=== PATIENT | female | born 2000 | race Caucasian/White ===

== ENCOUNTER 2020-07-21 15:37 | Emergency (ER) | payer OTHER, SELFPAY ==
[2020-07-21 15:42] VITALS: BP 140/79; PULSE 128; RESP 18; TEMP 36.9; O2SAT 100; BMI 37.4
[2020-07-21 17:37] VITALS: BP 124/69; PULSE 104; RESP 16; O2SAT 99
--- NOTE | 2020-07-21 18:44 | ED.ABDPAIN ---
HPI - Abdominal Pain General Chief Complaint: Abdominal Pain Stated Complaint: abdopminal pain Time Seen by Provider: 07/21/20 18:43 Source: patient Mode of arrival: ambulatory Limitations: no limitations History of Present Illness HPI narrative: Patient is a 20-year-old female with past medical history of uterine polyps who is scheduled to have surgery August 18 complaining of a right-sided pelvic and lower abdominal pain for 18 hours. Is able to eat and drink though at a reduced amount. Denies fevers, nausea vomiting diarrhea. States she is supposed to be getting her period starting tomorrow. States it does not feel like typical cramps, denies any unusual vaginal discharge or bleeding. She said she called her OBGYN and they advised she come to the emergency room. Related Data Date of Last Menstrual Period: 06/21/20 Home Medications Medication Instructions Recorded Confirmed vit,[id number] 1 tab PO DAILY 07/21/20 07/21/20 [PreTAB] Allergies Allergy/AdvReac Type Severity Reaction Status Date / Time amoxicillin [AMOXICILLIN] Allergy Unknown RASH Unverified 04/01/20 16:38 Review of Systems Review of Systems Yes all other systems are reviewed and are negative Physical Exam Vital Signs: Vital Signs: Last Vital Signs Temp 98.5 F 07/21/20 15:42 Pulse 106 H 07/21/20 19:47 Resp 16 07/21/20 19:47 BP 115/78 07/21/20 19:47 Pulse Ox 98 07/21/20 19:47 Body Mass Index 37.4 Const: General: cooperative, healthy appearing, comfortable, no acute distress and well developed Orientation/consciousness: patient oriented x3 Limitations: no limitations HENMT: Head: Yes normal to inspection Eyes: General: appearance normal, both eyes and all related structures Neck: Neck: Yes normal visual inspection and Yes full ROM Resp: Effort & Inspection: normal respiratory effort and able to speak in complete sentences Auscultation: clear to auscultation bilaterally Cardio: Rate: regular rate Rhythm: regular rhythm Heart sounds: normal S1 and S2 GI: Inspection: Yes normal to inspection Palpation (GI): Soft to palpation and Tenderness to palpation present (GI) in the RLQ and suprapubicly Skin: General skin exam: no rashes or lesions noted Neuro: General: patient oriented x3 Extrem: General: Yes normal to inspection Course Course Course Narrative: 20-year-old female past medical history of uterine polyp scheduled for surgery in early August presents with 1 day of right-sided lower abdominal pain, does not appear to be infectious, patient's vital signs are stable, heart rate has come down to 90, patient has remained afebrile. Upon my exam, patient appears rather comfortable, minimally tender in RLQ. Will get labs, UA, preg test and US pelvis including doppler to r/o ovarian torsion although this is less likely as not reflective of pain level. 8:40pm labs unremarkable, ultrasound shows no torsion, patient does have to cyst on her right ovary, waiting for urine sample. Pt complaining of increased pain. will give toradol 9pm UA negative, negative for . Will discharge home. Pain likely secondary to ovarian cysts. Patient's pain is controlled with Toradol. MDM - Abdominal Pain Lab Data Result diagrams: 07/21/20 19:19 07/21/20 19:19 Labs: Lab Results 07/21/20 07/21/20 07/21/20 Range/Units 19:19 19:19 19:19 WBC 13.6 H (4.8-10.8) X10*3/uL RBC 4.56 (4.20-5.50) X10*6/uL Hgb 13.4 (12.0-16.0) g/dl Hct 39.2 (37-47) % MCV 86.0 (80-98) fL MCH 29.4 (27.0-33.0) pg MCHC 34.2 (31.0-35.0) g/dl RDW 11.9 (11.0-16.0) % Plt Count 295 (160-400) X10*3/uL MPV 9.3 L (9.4-12.3) fL Immature Gran % (Auto) 0.1 (0.0-0.4) % Neut % (Auto) 77.7 H (45-73) % Lymph % (Auto) 17.2 L (20-40) % [place]quette % (Auto) 4.8 (2-11) % Eos % (Auto) 0.1 (0-4) % Baso % (Auto) 0.1 (0-2) % Lymph # (Auto) 2.3 (1.2-4.9) X10*3/uL [place] # (Auto) 0.7 (0.1-1.2) X10*3/uL Eos # (Auto) 0.0 (0.0-0.4) X10*3/uL Baso # (Auto) 0.0 (0.0-0.2) X10*3/uL Abs Immat Gran (auto) 0.02 (0.00-0.03) X10*3/uL Absolute Neuts (auto) 10.6 H (2.0-8.3) X10*3/uL Absolute Nucleated RBC 0.000 (0.0-0.012) X10*3/uL Nucleated RBC % (auto) 0.0 (0.0-0.2) /100WBC Hold Blue Top SEE NOTE Sodium 139 (135-145) mmol/L Potassium 3.5 (3.3-5.1) mmol/l Chloride 103 (96-108) mmol/L Carbon Dioxide 26 (22-29) mmol/L Anion Gap 14 (12-20) BUN 5 L (9-16) mg/dL Creatinine 0.71 (0.5-1.4) mg/dL Estim Creat Clear Calc 126.7 Estimated GFR > 60 Random Glucose 100 (60-115) mg/dL Calcium 8.5 (8.4-10.2) mg/dL Total Bilirubin 0.6 (0.0-1.0) mg/dL AST 12 (5-31) U/L ALT 13 (0-31) U/L Alkaline Phosphatase 66 (39-117) U/L Total Protein 7.1 (6.5-8.0) g/dL Albumin 4.2 (3.5-5.0) g/dL Urine Color Urine Appearance Urine pH (5.0-8.0) Ur Specific [place] (1.005-1.025) Urine Protein (NEG-TRACE) MG/DL Urine Glucose (UA) (NEG) MG/DL Urine Ketones (NEG) MG/DL Urine Blood (NEG) Urine Nitrite (NEG) Ur Leukocyte Esterase (NEG) Urine RBC (0) /HPF Urine WBC (0-4) /HPF Ur Squamous Epith Cells /LPF Urine Bacteria /LPF Urine Test (NEGATIVE) 07/21/20 Range/Units 20:36 WBC (4.8-10.8) X10*3/uL RBC (4.20-5.50) X10*6/uL Hgb (12.0-16.0) g/dl Hct (37-47) % MCV (80-98) fL MCH (27.0-33.0) pg MCHC (31.0-35.0) g/dl RDW (11.0-16.0) % Plt Count (160-400) X10*3/uL MPV (9.4-12.3) fL Immature Gran % (Auto) (0.0-0.4) % Neut % (Auto) (45-73) % Lymph % (Auto) (20-40) % Marquette % (Auto) (2-11) % Eos % (Auto) (0-4) % Baso % (Auto) (0-2) % Lymph # (Auto) (1.2-4.9) X10*3/uL [place] # (Auto) (0.1-1.2) X10*3/uL Eos # (Auto) (0.0-0.4) X10*3/uL Baso # (Auto) (0.0-0.2) X10*3/uL Abs Immat Gran (auto) (0.00-0.03) X10*3/uL Absolute Neuts (auto) (2.0-8.3) X10*3/uL Absolute Nucleated RBC (0.0-0.012) X10*3/uL Nucleated RBC % (auto) (0.0-0.2) /100WBC Hold Blue Top Sodium (135-145) mmol/L Potassium (3.3-5.1) mmol/l Chloride (96-108) mmol/L Carbon Dioxide (22-29) mmol/L Anion Gap (12-20) BUN (9-16) mg/dL Creatinine (0.5-1.4) mg/dL Estim Creat Clear Calc Estimated GFR Random Glucose (60-115) mg/dL Calcium (8.4-10.2) mg/dL Total Bilirubin (0.0-1.0) mg/dL AST (5-31) U/L ALT (0-31) U/L Alkaline Phosphatase (39-117) U/L Total Protein (6.5-8.0) g/dL Albumin (3.5-5.0) g/dL Urine Color YELLOW Urine Appearance CLEAR Urine pH 6.0 (5.0-8.0) Ur Specific [place] 1.025 (1.005-1.025) Urine Protein NEG (NEG-TRACE) MG/DL Urine Glucose (UA) NEG (NEG) MG/DL Urine Ketones 40 (NEG) MG/DL Urine Blood TRACE (NEG) Urine Nitrite NEG (NEG) Ur Leukocyte Esterase NEG (NEG) Urine RBC 0-2 (0) /HPF Urine WBC 0 (0-4) /HPF Ur Squamous Epith Cells 1+ /LPF Urine Bacteria TRACE /LPF Urine Test NEGATIVE (NEGATIVE) Discharge Plan Discharge Prescriptions: No Action PreTAB 29-1 mg tablet 1 tab PO DAILY RF: 0 PMFSH Past Medical History Medical History (Updated 07/21/20 @ 18:50 by PRANAV Tena) Uterine polyp Date of Last Menstrual Period: 06/21/20 Social History Social History Alcohol intake: unknown Smoking Status: Unknown if ever smoked Use of substances other than those prescribed or required for medical reasons: Unknown Advance Directives: No Advance Directives Information Provided: Yes
--- NOTE | 2020-07-21 18:50 | US_ITS ---
EXAMINATION: ULTRASOUND PELVIC, COMPLETE CLINICAL INFORMATION: Right-sided pain COMPARISON: None. TECHNIQUE: Transvaginal: Used to better visualize pelvic structures Transabdominal: Not adequate visualization Spectral Doppler and color Doppler exam was utilized. LMP: 06/30/2020 FINDINGS: UTERUS: Unremarkable. Uterus is anteverted. Uterus measures 6.9 x 3.2 x 4.9 cm ADNEXA: Ovarian vascularity:Doppler demonstrates both arterial and venous vascular flow in the right and left ovary. No evidence of ovarian torsion. Right Ovary: There are 2 adjacent cysts or a bilobed cyst in the right adnexa. This measures 6.5 x 5.3 x 5.5 cm. Volume 99 mL. There is a small volume of low level echoes within these cysts. Solid ovarian tissue evident of the right ovary which is unremarkable. Left Ovary: Unremarkable. Left ovary measures 1.4 x 1.5 x 2.8 cm. Volume 3 mL Cul-de-sac: There is a small volume of fluid in the cul-de-sac. US/US pelvic complete IMPRESSION: 1. Large bilobed cyst or 2 adjacent cysts in the right adnexa. These may be ovarian and/or paraovarian. These are mildly complex containing low-level echoes. 2. No evidence of ovarian torsion. 3. Small volume of fluid in the cul-de-sac.
--- NOTE | 2020-07-21 18:50 | US_ITS ---
EXAMINATION: ULTRASOUND PELVIC, COMPLETE CLINICAL INFORMATION: Right-sided pain COMPARISON: None. TECHNIQUE: Transvaginal: Used to better visualize pelvic structures Transabdominal: Not adequate visualization Spectral Doppler and color Doppler exam was utilized. LMP: 06/30/2020 FINDINGS: UTERUS: Unremarkable. Uterus is anteverted. Uterus measures 6.9 x 3.2 x 4.9 cm ADNEXA: Ovarian vascularity:Doppler demonstrates both arterial and venous vascular flow in the right and left ovary. No evidence of ovarian torsion. Right Ovary: There are 2 adjacent cysts or a bilobed cyst in the right adnexa. This measures 6.5 x 5.3 x 5.5 cm. Volume 99 mL. There is a small volume of low level echoes within these cysts. Solid ovarian tissue evident of the right ovary which is unremarkable. Left Ovary: Unremarkable. Left ovary measures 1.4 x 1.5 x 2.8 cm. Volume 3 mL Cul-de-sac: There is a small volume of fluid in the cul-de-sac. US/US pelvic ovarian doppler IMPRESSION: 1. Large bilobed cyst or 2 adjacent cysts in the right adnexa. These may be ovarian and/or paraovarian. These are mildly complex containing low-level echoes. 2. No evidence of ovarian torsion. 3. Small volume of fluid in the cul-de-sac.
[2020-07-21 19:00] VITALS: PULSE 90
--- NOTE | 2020-07-21 19:17 | US_ITS ---
EXAMINATION: ULTRASOUND PELVIC, COMPLETE CLINICAL INFORMATION: Right-sided pain COMPARISON: None. TECHNIQUE: Transvaginal: Used to better visualize pelvic structures Transabdominal: Not adequate visualization Spectral Doppler and color Doppler exam was utilized. LMP: 06/30/2020 FINDINGS: UTERUS: Unremarkable. Uterus is anteverted. Uterus measures 6.9 x 3.2 x 4.9 cm ADNEXA: Ovarian vascularity:Doppler demonstrates both arterial and venous vascular flow in the right and left ovary. No evidence of ovarian torsion. Right Ovary: There are 2 adjacent cysts or a bilobed cyst in the right adnexa. This measures 6.5 x 5.3 x 5.5 cm. Volume 99 mL. There is a small volume of low level echoes within these cysts. Solid ovarian tissue evident of the right ovary which is unremarkable. Left Ovary: Unremarkable. Left ovary measures 1.4 x 1.5 x 2.8 cm. Volume 3 mL Cul-de-sac: There is a small volume of fluid in the cul-de-sac. US/US transvaginal IMPRESSION: 1. Large bilobed cyst or 2 adjacent cysts in the right adnexa. These may be ovarian and/or paraovarian. These are mildly complex containing low-level echoes. 2. No evidence of ovarian torsion. 3. Small volume of fluid in the cul-de-sac.
--- NOTE | 2020-07-21 19:21 | PC.NURSE ---
Pt found resting in bed at this time, CAOx4, speaking full sentences. Pt reports a history of polyps in her uterus, states she is scheduled for surgery in August. Pt reports pain starting @ 0200, increasing throughout the day, pt reporting 7/10 pain at present time. Pt denies taking anything OTC for the pain. IV established, labs obtained. Pt unable to provide urine sample at this time. Pt ambulating to U/S with a gilliam/steady gait.
[2020-07-21 19:28] LABS: MANUAL DIFF FLAG NO
[2020-07-21 19:30] LABS: Basophils Percent Auto 0.1 % (0-2); Eosinophils Percent Auto 0.1 % (0-4); Hematocrit 39.2 % (37-47); Hemoglobin 13.4 g/dl (12.0-16.0); Imm Gran Abs Auto 0.02 X10*3/uL (0.00-0.03); Imm Gran Pct Auto 0.1 % (0.0-0.4); Lymphocytes Absolute Auto 2.3 X10*3/uL (1.2-4.9); Lymphocytes Percent Auto 17.2 % (20-40); Mean Corpuscular HGB Conc 34.2 g/dl (31.0-35.0); Mean Corpuscular Hemoglobin 29.4 pg (27.0-33.0); Mean Platelet Volume 9.3 fL (9.4-12.3); Monocytes Absolute Auto 0.7 X10*3/uL (0.1-1.2); Monocytes Percent Auto 4.8 % (2-11); Neutrophils Absolute Auto 10.6 X10*3/uL (2.0-8.3); Neutrophils Percent Auto 77.7 % (45-73); Platelet Count 295 X10*3/uL (160-400); Red Blood Count 4.56 X10*6/uL (4.20-5.50); Red Cell Distribution Width 11.9 % (11.0-16.0); White Blood Count 13.6 X10*3/uL (4.8-10.8)
[2020-07-21 19:47] VITALS: BP 115/78; PULSE 106; RESP 16; O2SAT 98
--- NOTE | 2020-07-21 19:48 | PC.NURSE ---
Pt returns from U/S without incident. VSS. Awaiting U/S results, continue to monitor.
[2020-07-21 19:50] LABS: Alanine Aminotransferase 13 U/L (0-31); Albumin Level 4.2 g/dL (3.5-5.0); Alkaline Phosphatase 66 U/L (39-117); Anion Gap 14 (12-20); Aspartate Amino Transferase 12 U/L (5-31); Bilirubin Total 0.6 mg/dL (0.0-1.0); Blood Urea Nitrogen 5 mg/dL (9-16); Calcium 8.5 mg/dL (8.4-10.2); Carbon Dioxide 26 mmol/L (22-29); Chloride 103 mmol/L (96-108); Creatinine Clr Calc Pharmacy 126.7; Estimated Glomerular Filt Rate > 60; Glucose Random 100 mg/dL (60-115); Potassium 3.5 mmol/l (3.3-5.1); Sodium 139 mmol/L (135-145); Total Protein 7.1 g/dL (6.5-8.0)
--- NOTE | 2020-07-21 20:37 | PC.NURSE ---
UA obtained and sent.
[2020-07-21] MEDS: Ketorolac Tromethamine 15 MG/ML VIAL IM (20:48)
--- NOTE | 2020-07-21 20:49 | PC.NURSE ---
Pt medicate per MAR for 8/10 abdominal pain.
[2020-07-21 20:52] LABS: Glucose Urine UA NEG (NEG); Leukocyte Esterase Urine NEG (NEG); Nitrite Urine NEG (NEG); Specific Gravity - Urine 1.025 (1.005-1.025); Urine Blood TRACE (NEG); Urine Ketones 40 MG/DL (NEG); Urine Protein NEG (NEG-TRACE)
[2020-07-21 20:53] LABS: Appearance Urine CLEAR; Color Urine YELLOW
[2020-07-21 20:56] LABS: UPreg QC Valid YES; Urine Pregnancy NEGATIVE (NEGATIVE)
[2020-07-21 21:01] LABS: Bacteria Urine TRACE /LPF; RBC Urine 0-2 /HPF (0); Squamous Epithelial Cell Urine 1+ /LPF; WBC Urine 0 /HPF (0-4)
== END 2020-07-21 21:21 | disposition home or self-care (01) ==
PROVIDERS: Physician Assistant; Emergency Provider Internal Medicine
DX: R10.2 Pelvic and perineal pain (principal); R10.31 Right lower quadrant pain
CPT/HCPCS: 36415; 76830; 76856; 80053; 81001; 81025; 85025; 93975; 96372; 99284; J1885

== ENCOUNTER 2021-02-17 20:42 | Emergency (ER) | payer OTHER, SELFPAY ==
--- NOTE | ~2021-02-17 | CT_ITS ---
EXAMINATION: CT HEAD WITHOUT CONTRAST CLINICAL INFORMATION: Constant headache for weeks COMPARISON: None TECHNIQUE: Contiguous axial imaging was performed from the skull base to vertex without intravenous administration of contrast. This CT examination was performed using dose optimization techniques as appropriate, variously including the following: *Automated exposure control *Adjustment of mA and/or kV according to patient size (this includes techniques or standardized protocols for targeted exams where dose is matched to indication/reason for exam; i.e. extremities or head) *Use of iterative reconstruction technique DLP: 620 mGy-cm FINDINGS: There is no evidence of acute intracranial hemorrhage or territorial infarction. No abnormal mass effect or midline shift is seen. Marie to white matter differentiation is well preserved. No extra-axial fluid collections are identified. The ventricles are normal in size. There is no abnormal attenuation within the brain parenchyma. The osseous structures and soft tissues are normal. The mastoid air cells and visualized portions of the paranasal sinuses are well aerated. CT/CT head/brain wo con IMPRESSION: No acute intracranial pathology.
[2021-02-17 21:18] VITALS: BP 117/75; PULSE 101; RESP 19; TEMP 36.8; O2SAT 100; BMI 33.3
--- NOTE | 2021-02-17 23:21 | ED_ITS ---
HPI - Headache General Chief Complaint: Headache Stated Complaint: migraines Time Seen by Provider: 02/17/21 23:15 Source: patient Mode of arrival: ambulatory Limitations: no limitations History of Present Illness HPI Narrative: Patient comes emergency room complaining of a migraine headache that started approximately 4-5 weeks ago. Patient states the pain is constant in her forehead, nonradiating, patient complaining of nausea and occasional vomiting. Patient states she has been taking ibuprofen, Aleve, Excedrin, Tylenol, but nothing is working. Patient states that for last 4 weeks, the pain has not subsided. Patient states that sometimes when she drives she has blurry vision but self resolves. Last time she had her eyes checked for prescription glasses was a year ago. Patient denies any other neurological deficits Related Data Home Medications Medication Instructions Recorded Confirmed vits,calcium no.78-iron 1 tab PO DAILY 07/21/20 07/21/20 fumarate-folic acid 29 mg-1 mg tablet (PreTAB) Previous Rx's Medication Instructions Recorded ketorolac 10 mg tablet 10 mg PO BID PRN 5 Days #7 tab 02/18/21 metoclopramide HCl 5 mg tablet 5 mg PO DAILY PRN #7 tab 02/18/21 (Reglan) Allergies Allergy/AdvReac Type Severity Reaction Status Date / Time amoxicillin [AMOXICILLIN] Allergy Intermediate RASH Verified 02/17/21 21:17 Penicillins Allergy Intermediate Hives Verified 02/17/21 21:17 Review of Systems Review of Systems: Constitutional : No Weight loss, No Fever, No Chills, No Night Sweats, No Fatigue, No Malaise ENT/Mouth : No Hearing loss, No Ear Pain, No Nasal Congestion, No Sinus Pain, No Hoarseness, No sore throat, No Rhinorrhea, No Swallowing Difficulty Eyes: No Eye Pain, No Swelling, No Redness, No Foreign Body, No Discharge, occasional intermittent blurry vision while driving Cardiovascular : No Chest Pain, No SOB, No Dyspnea on Exertion, No Orthopnea, No Edema, No Palpitations Respiratory : No Cough, No Sputum, No Wheezing, No Smoke Exposure, No Dyspnea Gastrointestinal : Complaining of nausea and occasional vomiting No Diarrhea, No Constipation, No abdominal Pain, No Hematochezia, No Melena Genitourinary : no irregular bleeding, No Dysuria, No Urinary Frequency, No Hematuria, No Urinary Incontinence, No Urgency, No Flank Pain, No Urinary Flow Changes, No Hesitancy Musculoskeletal : No joint pain, No Myalgias, No Joint Swelling Skin : No Skin Lesions, No rash Neuro : No Weakness, No Numbness, No Paresthesias, No Loss of Consciousness, No Dizziness, constant migraine headache for over a month Psych : No Anxiety/Panic, No Depression, No SI/HI/AH/VH, No Social Issues, Heme/Lymph: No Bruising, No Bleeding,No Lymphadenopathy Endocrine : No Polyuria, No Polydipsia, No Temperature Intolerance [facility] Past Medical History Medical History (Updated 02/18/21 @ 01:38 by Eloise Curiel MD) Migraines Uterine polyp Social History Social History Alcohol intake: unknown Advance Directives: No Advance Directives Information Provided: No Patient : No Physical Exam Vital Signs: Vital Signs: Last Vital Signs Temp 98.3 F 02/17/21 21:18 Pulse 101 H 02/17/21 21:18 Resp 19 02/17/21 21:18 BP 117/75 02/17/21 21:18 Pulse Ox 100 02/17/21 21:18 Body Mass Index 33.3 Const: Other: Appearance: Alert. Oriented X3. No acute distress. Eyes: Pupils equal, round and reactive to light. No photophobia ENT: Pharynx normal. Neck: Normal inspection. Neck supple. No lymph nodes noted. No crepitus CVS: Normal heart rate and rhythm. Pulses normal. Normal S1 and S2 Respiratory: No respiratory distress. Breath sounds normal. No Wheezing. No rales Abdomen: Soft and nontender. No rigidity. No distention. good BS x4 Skin: Skin warm and dry. Normal skin color. Normal skin turgor. Extremities: No lower extremity edema. No Lacerations. No Rash Neuro: Oriented X 3. No motor deficit. No sensory deficit. Moving all extermities. No slurred speech. Course Course Course Narrative: Patient states that she feels much better now, headache nearly gone, no nausea vomiting. Patient received 1 dose of Toradol, Benadryl, Reglan and a L of normal saline MDM - Headache Lab Data Labs: Lab Results 02/17/21 Range/Units 23:27 Urine Test NEGATIVE (NEGATIVE) Imaging Data CT scan - head: Radiologist's impression: There is no evidence of acute intracranial hemorrhage or territorial infarction. No abnormal mass effect or midline shift is seen. Marie to white matter differentiation is well preserved. No extra-axial fluid collections are identified. The ventricles are normal in size. There is no abnormal attenuation within the brain parenchyma. The osseous structures and soft tissues are normal. The mastoid air cells and visualized portions of the paranasal sinuses are well aerated. ? CT/CT head/brain wo con IMPRESSION: No acute intracranial pathology. Discharge Plan Discharge Clinical Impression: Migraine Qualifiers: Migraine type: unspecified Status migrainosus presence: without status migrainosus Intractability: not intractable Qualified Code(s): G43.909 - Migraine, unspecified, not intractable, without status migrainosus Patient Disposition: Home, Self-Care Instructions: Migraine Headache (ED) Additional Instructions: Please follow-up with your primary care physician tomorrow. If you have any worsening or new symptoms, please return to the emergency room or call 911 Prescriptions: New ketorolac 10 mg tablet 10 mg PO BID PRN (Reason: pain) 5 Days Qty: 7 RF: 0 metoclopramide HCl [Reglan] 5 mg tablet 5 mg PO DAILY PRN (Reason: nausea and vomiting) Qty: 7 RF: 0 No Action PreTAB 29-1 mg tablet 1 tab PO DAILY RF: 0
[2021-02-17 23:41] LABS: UPreg QC Valid YES; Urine Pregnancy NEGATIVE (NEGATIVE)
[2021-02-18] MEDS: 0.9 % Sodium Chloride 1,000 ML 999 ML IVCONT (00:50)
[2021-02-18] MEDS: diphenhydrAMINE HCL 50 MG/ML VIAL IVPUSH (00:50)
[2021-02-18] MEDS: Metoclopramide HCl 10 MG/2 ML VIAL IVPUSH (00:50)
[2021-02-18] MEDS: Ketorolac Tromethamine 15 MG/ML VIAL 30 MG IVPUSH (00:50)
== END 2021-02-18 02:00 | disposition home or self-care (01) ==
PROVIDERS: Emergency Provider Emergency Medicine; PCP Internal Medicine
DX: G43.909 Migraine, unspecified, not intractable, without status migrainosus (principal); Z79.899 Other long term (current) drug therapy
CPT/HCPCS: 70450; 81025; 96365; 96375; 99283; 99284; J1200; J1885; J2765

== ENCOUNTER 2022-06-30 11:26 | Outpatient (REF) | payer OTHER, SELFPAY ==
[2022-06-30 12:10] LABS: Influenza A PCR POSITIVE (Negative); Influenza B PCR NEGATIVE (Negative); Resp Syncy Virus RNA Qual PCR NEGATIVE (Negative); SARS COV2 PCR INHOUSE NEGATIVE (Negative)
== END 2022-06-30 11:27 | disposition home or self-care (01) ==
LOC: HO.LNP 11:26
PROVIDERS: Visit Provider Emergency Medicine
DX: Z20.822 Contact with and (suspected) exposure to COVID-19 (principal); R68.89 Other general symptoms and signs
CPT/HCPCS: 0241U

== ENCOUNTER 2023-04-27 13:33 | Outpatient (AMB) | payer OTHER, SELFPAY ==
--- OUTSIDE RECORDS SUMMARY | 2023-04-27 13:34 | XMS_ITS | Continuity of Care Document ---
Author Name Unknown Organization [facility] Address [address] [address]- Care Team Providers Care Supervisor [employer] Name Role Phone Kathya Tabor MD Primary Care Physician Encounter [facility] Date(s): 01/26/23 - 03/18/23 [facility] [address] [id number] Attending Physician: Regina Polanco CNM Admitting Physician: Regina Polanco CNM Referring Physician: Kierra Maldonado CNM Allergies, Adverse Reactions, Alerts Substance Reaction Severity Status amoxicillin severe hives,trouble breathing Active penicillin severe hives,trouble breathing Active Immunizations Given and Recorded Vaccine Date Status Refusal Reason tetanus/diphtheria/pertussis, acel(Tdap) 11/09/22 Given tetanus/diphtheria/pertussis, acel(Tdap) 07/26/17 Recorded influenza virus vaccine, inactivated 07/26/17 Eliel rded Hepatitis A Pediatric Vaccine 02/09/16 Recorded Hepatitis A Pediatric Vaccine 02/05/15 Recorded Medications Multivitamins with Vitamin B Complex, Vitamin C, Minerals and L- Methylfolate oral capsule 1 capsule, By Mouth, Daily in AM, 0 Refills, Maintenance, 08/11/20 15:23:00 EST, Capsule, Partial fill upon patient request if the prescription is for a schedule II opioid drug. Start Date: 08/11/20 Status: Ordered sertraline 50 mg oral tablet 1 tablet = 50 mg, By Mouth, Daily, # 90 tablet, 4 Refills, Maintenance, 02/20/23 16:27:00 EDT, Tablet, [id number], Partial fill upon patient request if the prescription is for a schedule II opioid drug., 158, cm, 02/08/23 11:19:00 EDT, Height,... Start Date: 02/20/23 Status: Ordered valACYclovir 500 mg oral tablet See Instructions, TAKE 1 TABLET BY MOUTH TWICE A DAY FOR 3 DAYS, # 180 tablet, Refills 0, Maintenance, 03/16/23 4:44:00 EDT, Instructions Replace Required Details, Route to Pharmacy Electronically, [id number], 158, cm, 03/13/23 9:25:00 EDT, Heigh... Start Date: 03/16/23 Status: Ordered Xulane 150 mcg-35 mcg/24 hr transdermal film, extended release 1 patch, Topically, Every week, Wait until 6 weeks after delivery before starting this medication. Apply a new patch weekly for 3 weeks, then remove patch for 1 week., # 12 each, 3 Refills, Maintenance, 01/27/23 11:30:00 EDT, [id number], Parti... Start Date: 01/27/23 Status: Ordered Problem List Condition Confirmation Course Effective Dates Status Health St atus Informant Gestational diabetes Confirmed Active HSV-2 infection complicating Confirmed Active Low-lying placenta Confirmed Active Obese class I Confirmed Active Obesity in Confirmed Active Confirmed Active Social History Social History Type Response Smoking Status Never (less than 100 in lifetime) entered on: 06/19/22 Sex Patient Care team information Care Team Personnel Name: Kathya Tabor MD Position: [facility] General Pediatrics MD Member Role: PCP Address: Address: [address] [place] [id number]- Name: Cristiane GRANT, Madi Ayala Position: [facility] CLERICAL SUPPORT SPECIALIST MD Member Role: [employer] CLERICAL SUPPORT SPECIALIST Physician Address: Address: [address] [place] [address] [facility] [place] [address]- Care Team Related Persons Name: LOW MALENA Address: home [address] [place] [address] Name: MADDIE VENTURA Address: [employer] Address: home [address] [place] [address] [place] Name: SUSHILA VENTURA Address: home [address] [place] [id number]
--- OUTSIDE RECORDS SUMMARY | 2023-04-27 13:34 | XMS_ITS | Continuity of Care Document ---
Author Name Unknown Organization [facility] Address [address] [place] [address]- Care Team Providers Care Regulatory Scientist Name Role Phone Kathya Tabor MD Primary Care Physician [phone] Encounter [facility] ACCT R [id number] Date(s): 05/20/22 - 05/27/22 [facility] [address], [place] [address] Attending Physician: Vitaly Leo DO Referring Physician: Kathya Tabor MD Allergies, Adverse Reactions, Alerts Substance Reaction Severity Status amoxicillin severe hives,trouble breathing Active penicillin severe hives,trouble breathing Active Medications cabergoline 0.5 mg oral tablet 0.5 tablet = 0.25 mg, By Mouth, Every Sunday and Sunday, # 13 tablet, 3 Refills, Maintenance, 05/10/22 15:59:00 EDT, [facility]/pharmacy #[id number], Partial fill upon patient request if the prescription is for a schedule II opioid drug., 157.48, cm, 12/23/21 12:... Start Date: 05/10/22 Status: Ordered Multivitamins with Vitamin B Complex, Vitamin C, Minerals and L- Methylfolate oral capsule 1 capsule, By Mouth, Daily in AM, 0 Refills, Maintenance, 08/11/20 15:23:00 EST, Capsule, Partial fill upon patient request if the prescription is for a schedule II opioid drug. Start Date: 08/11/20 Status: Ordered Problem List Condition Confirmation Course Effective Dates Status Health St atus Informant Obese class II Confirmed Active Vital Signs Most recent to oldest [Reference Range]: 1 Height 157.48 cm (05/20/22 11:57 AM) Weight 89.8 kg (05/20/22 11:57 AM) Oxygen Saturation [94-100 %] 100 % (05/20/22 11:57 AM) Pulse Rate [55-90 bpm] 97 bpm *H* (05/20/22 11:57 AM) Body Mass Index [18.5-24.99 kg/m2] 36.21 kg/m2 *>HHI* (05/20/22 11:57 AM) Blood Pressure [90-138/55-84 mm Hg] 113/ 73mm Hg (05/20/22 11:57 AM) Temperature [96.8-100.4 DegF] 98.2 DegF (05/20/22 11:57 AM) Mode of Delivery (Oxygen) Room air (05/20/22 11:57 AM) Blood pressure sites Arm, right (05/20/22 11:57 AM) Temperature Route Temporal (05/20/22 11:57 AM) Dry Weight 89.8 kg (05/20/22 11:57 AM) Weight Obtained Via Standing scale (05/20/22 11:57 AM) Dry Weight Obtained Via Standing scale (05/20/22 11:57 AM) Social History Social History Type Response Smoking Status Never (less than 100 in lifetime);Never entered on: 08/23/21 Sex Patient Care team information Care Team Personnel Name: Kathya Tabor MD Position: [facility] General Pediatrics MD Member Role: PCP Address: Address: [address] [place] [id number] [place] Care Team Related Persons Name: MALENA KELSEY Address: home [address] [place] [id number] Name: SUSHILA VENTURA Address: home [address] [place] [address]
--- OUTSIDE RECORDS SUMMARY | 2023-04-27 13:34 | XMS_ITS | Continuity of Care Document ---
Author Name Unknown Organization [facility] ter Address [address] [place] [id number]- Care Team Providers Care Band Aid Machine Operator Name Role Phone Kathya Tabor MD Primary Care Physician [place] [facility] [place] 01/16/[address] [address] Discharge Disposition: A-D/C Home Attending Physician: Corky Hastings MD Admitting Physician: Corky Hastings MD Referring Physician: Corky Hastings MD Allergies, Adverse Reactions, Alerts Substance Reaction Severity Status amoxicillin severe hives,trouble breathing Active penicillin severe hives,trouble breathing Active Immunizations Given and Recorded Vaccine Date Status Refusal Reason tetanus/diphtheria/pertussis, acel(Tdap) 11/09/22 Given tetanus/diphtheria/pertussis, acel(Tdap) 07/26/17 Recorded influenza virus vaccine, inactivated 07/26/17 Eliel rded Hepatitis A Pediatric Vaccine 02/09/16 Recorded Hepatitis A Pediatric Vaccine 02/05/15 Recorded Medications acetaminophen/butalbital/caffeine 325 mg-50 mg-40 mg oral tablet 2 tablet, By Mouth, Every 6 hours, PRN for headache, not to exceed 6 tablets/day not to exceed 4000mg acetaminophen per day, # 30 tablet, 1 Refills, Maintenance, 10/02/22 11:27:00 EDT, Tablet, [facility]/pharmacy #[id number], Partial fill upon patient request if... Start Date: 10/02/22 Status: Ordered famotidine 20 mg oral tablet See Instructions, TAKE 1 TABLET BY MOUTH TWICE A DAY, # 60 tablet, Refills 1, Maintenance, 12/12/2310:42:00 EDT, Instructions Replace Required Details, Route to Pharmacy Electronically, [id number], 157.48, cm, 12/07/22 10:20:00 EDT, Height, 96.1... Start Date: 12/12/22 Status: Ordered Freestyle Lite Lancets See Instructions, # 200 each, Refills 5, Tot. Refills 5, Maintenance, use QID to test blood sugars,11/20/22 14:46:00 EDT, Supply, 157.48, cm, 11/15/22 13:10:00 EDT, Height, 97.3, kg, 11/18/22 20:56:00 EDT, Dry Weight Start Date: 11/20/22 Stop Date: 05/19/23 Status: Ordered Freestyle Lite Monitor See Instructions, # 1 each, Refills 0, Tot. Refills 0, Maintenance, use QID to test blood sugars, 11/20/22 14:46:00 EDT, Supply, 157.48, cm, 11/15/22 13:10:00 EDT, Height, 97.3, kg, 11/18/22 20:56:00EDT, Dry Weight Start Date: 11/20/22 Stop Date: 12/20/22 Status: Ordered Freestyle Lite Test Strips See Instructions, # 200 each, Refills 5, Tot. Refills 5, Maintenance, use QID to test blood sugars,11/20/22 14:46:00 EDT, Supply, 157.48, cm, 11/15/22 13:10:00 EDT, Height, 97.3, kg, 11/18/22 20:56:00 EDT, Dry Weight Start Date: 11/20/22 Stop Date: 05/19/23 Status: Ordered metFORMIN 500 mg oral tablet 2 tablet = 1,000 mg, By Mouth, Daily at bedtime, # 30 tablet, 1 Refills, Maintenance, 01/04/23 15:06:00 EDT, [facility]/pharmacy #[id number], Partial fill upon patient request if the prescription is for a schedule II opioid drug., 157.48, cm, 01/04/23 11:58:00 EDT... Start Date: 01/04/23 Status: Ordered Multivitamins with Vitamin B Complex, Vitamin C, Minerals and L- Methylfolate oral capsule 1 capsule, By Mouth, Daily in AM, 0 Refills, Maintenance, 08/11/20 15:23:00 EST, Capsule, Partial fill upon patient request if the prescription is for a schedule II opioid drug. Start Date: 08/11/20 Status: Ordered Tylenol 325 mg oral tablet 975 mg, Tablet, By Mouth, Once, PRN for Pain , Mild, Routine, 01/16/23 14:43:00 EDT Start Date: 01/16/23 Stop Date: 01/16/23 Status: Completed Problem List Condition Confirmation Course Effective Dates Status Health St atus Informant Gestational diabetes Confirmed Active HSV-2 infection complicating Confirmed Active Low-lying placenta Confirmed Active Obese class II Confirmed Active Obesity in Confirmed Active Placenta previa Confirmed Active Confirmed Active Vital Signs Most recent to oldest [Reference Range]: 1 2 Weight 98.6 kg (01/16/23 1:42 PM) Oxygen Saturation [94-100 %] 95 % (01/16/23 1:57 PM) Blood Pressure [90-138/55-84 mm Hg] 108/ 66mm Hg (01/16/23 1:57 PM) Respiratory Rate [16-30 br/min] 18 br/mi n (01/16/23 3:19 PM) 18 br/min (01/16/23 1:57 PM) Temperature [96.8-100.4 DegF] 97.9 DegF (01/16/23 1:42 PM) Mode of Delivery (Oxygen) Room air (01/16/23 1:57 PM) Blood pressure sites Arm, right (01/16/23 1:57 PM) Temperature Route Oral (01/16/23 1:42 PM) Dry Weight 98.6 kg (01/16/23 1:42 PM) Weight Obtained Via Standing scale (01/16/23 1:42 PM) Dry Weight Obtained Via Standing scale (01/16/23 1:42 PM) Social History Social History Type Response Smoking Status Never (less than 100 in lifetime) entered on: 06/19/22 Sex Hospital Progress note * Naida Smith: PERFORM Event Display: Progress Note Hospital Authored Date: [id number] Patient: ??CARLOS CATES SHAI ? Age:??22 Years?Sex:??Female?:??2000?? LMP/EGA/LAYLA Gestational Age (EGA) and LAYLA? * Note: EGA calculated as of 01/16/2023 ?? LAYLA:??01/31/2023?EGA*:??37 weeks 6 days ? History?(0,0,0,0)?Method:??Last Menstrual Period??(04/26/2022) Subjective Carlos is a at 37w6d reporting diffuse body swelling of all extremities and face (lips, around eyes) that onset this AM. Reports diffuse /??headache since Sunday that has been unrelieved by tylenol or fioricet. Denies vision changes, n/v, epigastric pain. Denies leaking of fluid or vaginal bleeding. Endorses movement. Feeling well aside from swelling and RUSSELL. Had a few hamburgers last night at [employer] in [place]. OB Assessment Baby A Baseline:135 Baseline Description:Normal, 110-160 bpm Baseline Variability:Moderate variability Accelerations:Present Deceleration:None Activity:Present Uterine Monitor Mode, UterineExternal Physical Exam Vitals & Measurements T:??97.9?F?? HR:??103??(Monitored)?? RR:??18?? BP:??108/66?? SpO2:??95%?? WT:??98.6??kg?? Constitutional?? Appearance: Normal affect.?? Neurological/Psychiatric?? Orientation: Time, Place, Person.?? Affect: Normal.?? Skin?? Skin: Normal exam.?? Abdomen/GI?? Gravid.?? Obese.?? Not Tender.?? No Masses. Extremities Non pitting edema of bilateral lower and upper extremities Review of Systems Constitutional -??Neg,??feels well Endocrine -??Neg Breast -??Neg Resp - Neg, no SOB Cardio - Neg, no palpitations OB?no loss of fluid;??no bleeding; no contractions;??+ movement?? Urinary -??No dysuria, frequency, odor, hematuria Cat Dog Or Other Pet Groomer -??No vaginal discharge, no itching, no odor, no lesions GI -??No nausea, no vomiting, no diarrhea Neuro -??+ headache, no visual changes, no dizziness Psych -??Neg, no depression or anxiety Assessment/Plan Assessment:??22 y/o with normal term swelling. No indication of pre-E. Suspect swelling may be related to PO sodium intake and normal end of course. ?? Edema (R60.9):??Loose fitting clothing Warning signs reviewed ?? Headache (R51.9):??Reglan, Benadryl and Tylenol given Warning signs reviewed, when to call ?? OB History History?(0,0,0,0)?No previous pregnancies history have been recorded Active Problem List Active Problem List Gestational diabetes: (Medical) HSV-2 infection complicating : (Medical) Low-lying placenta: (Medical) Obese class II: (Medical) Obesity in : (Medical) Placenta previa: (Medical) : (Obstetric) (04/26/22) : (Medical) Medications No qualifying data available * Regina Polanco CNM: PERFORM Event Display: Progress Note Hospital Authored Date: [id number] This note was completed by a strawberry grower student. I personally oversaw all components of the visit including the history of present illness, examination and medical decision making. The note has been verified for accuracy and redocumented as needed. ? Pt's headache completely resolved. D/c home with danger signs. F/u in office for DIANA. * Regina Polanco CNM: PERFORM Event Display: Progress Note Hospital Authored Date: Reactive NST. Note * Namita John: PERFORM Event Display: Discharge/Transfer Note Hospital Authored Date: [id number] Nursing Discharge Note Entered On: 01/16/2023 16:18 EDT Performed On: 01/16/2023 16:17 EDT by Namita John Nursing Discharge Note 2 Discharge Time : 01/16/2023 16:09 EDT Discharge Level of Care at Discharge : Home/Penitentiary/Foster Care Patient Left Unit Via : Ambulatory Patient Accompanied Off Unit with : Parent DC Instructions Provided & Signed by Pt : Unable Patient Understands D/C Instructions : Unable Patient Instructions Discharge Signed : No Instructions for Discharge Comments : Pt walked off unit before instrucitons were given Did Pt have Specialty Bed or Wound Vac : No Namita John - 01/16/2023 16:17 EDT * Namita John: PERFORM Event Display: Patient Education/Instruction Authored Date: [id number] Inpatient Adult Discharge Instructions [address] [address] Name: CARLOS CATES : 2000 Visit: 01/16/2023 13:32:00 Current Date: 01/16/2023 16:12 Account: [id number] Inpatient Adult Discharge Instructions We would like to thank you for allowing us to assist you with your healthcare needs. The following includes patient education materials and information regarding your injury/illness. Our entire staffstrives to provide an excellent experience for our patients and their families. PLEASE ENSURE YOU FOLLOW-UP PER THE INSTRUCTIONS BELOW! ?? YOUR OPINION IS IMPORTANT TO US! Please complete the survey you may receive by mail or email. Your feedback will be used to make improvements to the healthcare experiences of our patients and their families. Surveys are administered by [employer] ?? If further treatment with your primary care physician or another doctor is recommended, it is important for you to keep the appointment. Call your primary care physician or return to the Emergency Department immediately if your condition worsens, fails to improve, or new symptoms develop. If you need to find a doctor, you can call [facility] Back[facility] I/O for a referral at [phone] or toll free at [phone] or log in to [email or web address].. ?? You can view and manage your care through the patient portal or by using a health care yola of your choosing. [employer] is a website that allows you to securely view your medical information including your hospital discharge summary, office visit summaries, medications and follow-up visits. You can also request appointments, renew medications, and request access to your medical information using a health care yola of your choosing, or just ask a question. You can enroll at [email or web address] or register during your next office visit. You have been discharged from [facility], Patient Care Unit: [id number]. If you have any questions regarding these instructions after you leave, please call us and we will be happy to assist you. [facility] Your Care Team Attending Physician Corky Hastings MD Your Diagnosis Headache Edema Tests Performed Below is a partial list of the tests performed during your hospitalization. You may have had other tests and procedures not included in this list. Please discuss all test results with your provider. Primary Care Provider Kathya Tabor MD Advance Directive Health Care Proxy on File No Discharge Vitals Temperature: 97.9 DegF Weight: 98.6 kg Respiratory Rate: 18 br/min ?? Systolic Blood Pressure: 108 mm Hg ?? Diastolic Blood Pressure: 66 mm Hg ?? Oxygen Saturation: 95 % ?? Studies Pending All tests and labs ordered during this hospital stay have been completed unless listed below. Please discuss all pending results with your provider listed above in these instructions. ?? No incomplete studies found What to do next Instructions From Your Doctor Discharge Orders Scheduled Follow-Up Appointments Sunday 9:00 AM EDT ?? Where: [facility] PAD [facility] [address] [place] [address]- Status: Pending 2022 9:50 AM EDT ?? With: Bailee Encinas CNM Where: [facility] [address] [place] [address]- Status: Pending 2022 9:00 AM EDT ?? Where: [facility] [address] [place] [address]- Status: Pending 2022 9:50 AM EDT ?? With: Jasmin Blackwell CNM Where: [facility] [address] [place] [address]- Status: Pending 2022 9:50 AM EDT ?? With: Iram Fournier CNM Where: [facility] [address] [place] [address]- Status: Pending 2022 10:00 AM EDT ?? Where: [facility] [address] [place] [address]- Status: Pending You Need to Schedule the Following Appointments Follow Up with??Rishi KING, Jasmin Pedraza Why: Please keep next scheduled appointment. Where: [address] [place] [address] Midwifery [place] [address]- Discharge Medications CARLOS CATES :2000 Visit Date:01/16/2023 Medications: Please continue your medications until treatment is completed or stopped by your provider. Medications not listed below should be discontinued. Discuss any questions related to medications with your provider. What How Much When Instructions Next Dose Unchanged Acetaminophen/ Butalbital/ Caffeine (acetaminophen/ butalbital/ caffeine 325 mg-50 mg-40 mg oral tablet) 2 tab(s) Oral Every 6 hours as needed for for headache not to exceed 6 tablets/ day not to exceed 4000 mg acetaminophen per day ?? Unchanged Durable Medical Equipment (Freestyle Lite Lancets) See instructions Duration: 30 Days use QID to test blood sugars ?? Unchanged Durable Medical Equipment (Freestyle Lite Monitor) See instructions Duration: 30 Days use QID to test blood sugars ?? Unchanged Durable Medical Equipment (Freestyle Lite Test Strips) See instructions Duration: 30 Days use QID to test blood sugars ?? Unchanged Famotidine (famotidine 20 mg oral tablet) See instructions TAKE 1 TABLET BY MOUTH TWICE A DAY ?? Unchanged Metformin (metFORMIN 500 mg oral tablet) 2 tab(s) Oral Daily at Bedtime Unchanged Multivitamin, ( Multivitamins with Vitamin B Complex, Vitamin C, Minerals and L-Methylfolate oral capsule) 1 capsule Oral Daily in the morning Test Results Below is a partial list of the most recent Laboratory test results done prior to this discharge. You may have had other tests and procedures not included in this list. Please discuss all test resultswith your provider. Allergies (NKA means No Known Allergies) amoxicillin??( severe hives,trouble breathing ) penicillin??( severe hives,trouble breathing ) Problems Active Problems??(8) Gestational diabetes?? HSV-2 infection complicating ?? Low-lying placenta?? Obese class II?? Obesity in ?? Placenta previa? Education Materials Below is the list of Educational Leaflet Providered with your Discharge Instructions. Labor and Childbirth: Active Labor?? What Happens During Labor: Stage 1?? How to Know You Are in Labor?? Recognizing Labor?? Stages of Labor?? False Labor?? Kick Counts?? Valuables and Belongings I fully understand and agree that [facility] accepts no responsibility for all my personal property including clothing, toilet articles, radios, jewelry, dentures, hearing aids, rings, money, or any other property that is in my possession or is brought to me after admission. I understand certain valuables may be placed in a hospital safe for a short period of time. I understand that the hospital is not liable for loss or damage due to accident, fire, or other natural occurrence while said property is in the safe. I accept full responsibility for any personal property that I keep with me, and will not hold the hospital responsible in case of loss or disappearance. I acknowledge that i have been encouraged to send valuables and belongings home. ? Other Discharge Information ? Pulmonary Rehab Status?? Pulmonary Rehab Discharge Status?? Respiratory Rate: 18 br/min ? Common Emergency Awareness Tips IS IT A STROKE? Act FAST and Check for these signs: FACE Does the face look uneven? ARM Does one arm drift down? SPEECH Does their speech sound strange? TIME Call at any sign of stroke ?? Heart Attack Signs Chest discomfort: Most heart attacks involve discomfort in the center of the chest and lasts more than a few minutes, or goes away and comes back. It can feel like uncomfortable pressure, squeezing, fullness or pain. Discomfort in upper body: Symptoms can include pain or discomfort in one or both arms, back, neck, jaw or stomach. Shortness of breath: With or without discomfort. Other signs: Breaking out in a cold sweat, nausea, or lightheaded. Remember, MINUTES DO MATTER. If you experience any of these heart attack warning signs, call 9-1-1 to get immediate medical attention! ?? Smoking can increase your chances of developing chronic health problems and can cause harmful effects to other family members in your house. If you smoke, you are strongly encouraged to quit. Please call [facility] [employer] Link at [phone] or [phone] ([phone]) or log in to [email or web address] for referrals to smoking cessation programs. ?? 034 Suicide & Crisis Lifeline is available 05/02 if you or someone you know needs to find a reason to keep living. By calling 813 you'll be connected to a skilled, trained counselor at a crisis center in your area. INPATIENT DISCHARGE INSTRUCTIONS SIGNATURE PAGE CARLOS CATES Location:[facility] Registration Date and Time:01/16/2023 13:32 EDT Primary Care Physician: Leander GRANT, Kathya Oneill, Attending Physician: Corky Hastings MD, I CARLOS CATES, have received the above patient education materials/instructions and have verbalized understanding. If ambulance or transport services are being used I further acknowledge being given a choice of service. ?? If you need to contact me, please call me at this number: . Patient/Student Union Consultant Name: Patient/Student Union Consultant Signature: Relationship to Patient: Witness Name/Signature: Date: * Mays SB-Namita BAL: PERFORM Event Display: Patient Education Leaflets Authored Date: [id number] Labor and Childbirth: Active Labor ?? [address] Labor and Childbirth: Active Labor During active labor, your contractions will be stronger and more rhythmic than with early labor. They peak and subside like waves. They may happen??2 to??3 minutes apart and last about 45 to 60 seconds. This part of labor can be hard work. But it is often shorter than early labor. When you reach active labor, exams and tests will be done to see how you and your baby are doing. During labor, the cervix begins to efface (thin) and dilate (open). Evaluating you and your baby An exam tells how you and your baby are responding to contractions. Your blood pressure, temperature, and pulse will be checked. A blood or urine sample may also be taken. A monitor will be used to check your baby???s heart rate. Sometimes an IV (intravenous) line is started to give you medicine and fluids. ?? Moving ahead with labor You may now feel contractions in??your whole stomach instead of just the lower part (like during early labor). If your amniotic sac has not broken already, it may break now. Or it may be broken for you. To help your baby descend, change position often. Walking or sitting in a rocking chair or recliner may help. You may find it hard to relax even though you are tired. You may also be less interested in talking than you were earlier. If you???re having anesthesia, you may want to get it now.? Special issues during labor If labor doesn???t progress well or a problem arises, you may need a .??But your healthcareproviders may??take certain steps to help you avoid a : ??? If your cervix isn???t dilating, a medicine (oxytocin)??may be used to augment labor. ??? If monitoring shows your baby isn???t getting enough oxygen, shifting your body position may help. You may also be given oxygen througha mask. ??? If you have preeclampsia (a condition that results in high blood pressure, swelling, and other symptoms), you may be given medicines by IV (intravenous). Your healthcare provider may alsotell you to lie on your left side. ?? Responding to contractions During contractions, try to stay relaxed. Tense muscles use more oxygen, eat up your body???s energy, and increase pain. Use the breathing and relaxation techniques you may have learned. And let yoursupport person know how he or she can help. If you???ve had problems during a previous , focuson the present. Keep in mind that no 2 births are the same. ?? Support person???s note Here's how you can help: ??? Have the mother walk or change positions at least once an hour. This improves circulation and helps the baby descend. ??? Keep reminding the mother to breathe and relax through each contraction. ??? Reassure her. Try to keep her from getting anxious or overstressed. ???Take care of yourself. Take a short break to eat or go to the bathroom when you need to. ??? Rest when the mother does. You???ll both benefit. ?? Last Reviewed Date: 2021 ?? 7006-6996 [employer]. All rights reserved. This information is not intended as a substitute for professional medical care. Always follow your healthcare professional's instructions. ?? * Davon BASURTO-Namita BAL: PERFORM Event Display: Patient Education Leaflets Authored Date: [id number] What Happens During Labor: Stage 1 ?? What Happens During Labor: Stage 1 - Video Labor, or childbirth, has 3 stages. The first stage is the longest. It can last up to 20 hours, especially if you are having your first child. To view the video go to this web address: [email or web address] Or, scan this QR code with your smart phone Last Reviewed Date: 2019 ?? 8416-0990 [employer]. All rights reserved. This information is not intended as a substitute for professional medical care. Always follow your healthcare professional's instructions. ?? * Davon ABSURTO-Namita BAL: PERFORM Event Display: Patient Education Leaflets Authored Date: [id number] How to Know You Are in Labor ?? How to Know You Are in Labor - Video Most women start to go into labor around the baby???s due date. This is typically around 40 weeks of . To view the video go to this web address: [email or web address] Or, scan this QR code with your smart phone Last Reviewed Date: 2019 ?? 8426-4096 [employer]. All rights reserved. This information is not intended as a substitute for professional medical care. Always follow your healthcare professional's instructions. ?? Patient Care team information Care Team Personnel Name: Kathya Tabor MD Position: [facility] General Pediatrics MD Member Role: PCP Address: Address: [address] [place] [address]- Care Team Related Persons Name: MALENA KELSEY Address: home [address] [place] [address] Name: SUSHILA VENTURA Address: home [address] [place] [address]
--- OUTSIDE RECORDS SUMMARY | 2023-04-27 13:34 | XMS_ITS | Continuity of Care Document ---
Author Name Unknown Organization [facility] Address [address] [address]- Care Team Providers Care Electric Sign Wirer Name Role Phone Kathya Tabor MD Primary Care Physician [place] [facility] [place] - 12/16/[address] [address] Allergies, Adverse Reactions, Alerts Substance Reaction Severity [...] 1 Refills, Maintenance, 10/02/22 11:27:00 EDT, Tablet, [facility]/pharmacy #[id number], Partial fill upon patient request if... Start Date: 10/02/22 Status: Ordered famotidine 20 mg oral tablet See Instructions, TAKE 1 TABLET BY MOUTH TWICE A DAY, # 60 tablet, Refills 1, Maintenance, 12/12/2310:42:00 EDT, Instructions Replace Required Details, Route to Pharmacy Electronically, [id number], 157.48, cm, 12/07/22 10:20:00 EDT, Height, 96.1... [...] Date: 11/20/22 Stop Date: 05/19/23 Status: Ordered Multivitamins with Vitamin B Complex, Vitamin C, Minerals and L- Methylfolate oral capsule 1 capsule, By Mouth, Daily in AM, 0 Refills, Maintenance, 08/11/20 15:23:00 EST, Capsule, Partial fill upon patient request if the prescription is for a schedule II opioid drug. Start Date: 08/11/20 Status: Ordered Problem List Condition Confirmation Course Effective Dates Status Health St [facility] Informant Allergy to penicillin Confirmed Active Gestational diabetes Confirmed Active HSV-2 infection complicating Confirmed Active Obese class II Confirmed Active Obesity in Confirmed Active Placenta previa Confirmed Active Confirmed Active Social History Social History Type Response Smoking Status Never (less than 100 in lifetime) entered on: 06/19/22 Sex Patient Care team information Care Team Personnel Name: Kathya Tabor MD Position: [facility] General Pediatrics MD Member Role: PCP Address: Address: [address] [place] [phone]- [place] Care Team Related Persons Name: MALENA KELSEY Address: home [address] [place] [address] Name: ENGLISH SUSHILA Address: [address] [place] [address]
--- OUTSIDE RECORDS SUMMARY | 2023-04-27 13:35 | XMS_ITS | Continuity of Care Document ---
Author Name Unknown Organization [facility] [employer] [employer] [facility] Address [address] [facility], [address] [place] [address]- Care Team Providers Care Manager Council Name Role Phone Leander GRANT, Kathya Oneill Primary Care Physician [phone] [place] [facility] [id number] Date(s): 01/11/23 - 01/18/23 [facility] [employer] [facility] [address] [facility] [place], [place] [address] Attending Physician: Nathalie Kearney MD Referring Physician: Reny Oglesby CNM Allergies, Adverse Reactions, Alerts Substance Reaction [...] 1 Refills, Maintenance, 10/02/22 11:27:00 EDT, Tablet, [facility]/pharmacy #[id number], Partial fill upon patient request if... Start Date: 10/02/22 Status: Ordered famotidine 20 mg oral tablet See Instructions, TAKE 1 TABLET BY MOUTH TWICE A DAY, # 60 tablet, Refills 1, Maintenance, 12/12/2310:42:00 EDT, Instructions Replace Required Details, Route to Pharmacy Electronically, [email or web address] [id number], 157.48, cm, 12/07/22 10:20:00 EDT, Height, 96.1... [...] mg, By Mouth, Daily at bedtime, # 60 tablet, 1 Refills, Maintenance, 01/17/23 14:01:00 EDT, [facility]/pharmacy #[id number], Partial fill upon patient request if the prescription is for a schedule II opioid drug., 157.48, cm, 01/11/23 10:17:00 EDT... Start Date: 01/17/23 Status: Ordered Multivitamins with Vitamin B Complex, [...] Team Personnel Name: Kathya Tabor MD Position: [facility] General Pediatrics MD Member Role: PCP Address: Address: [address] [place] [address]- [place] Care Team Related Persons Name: MALENA KELSEY Address: home [address] [place] [address] Name: SUSHILA VENTURA Address: [address] [place] [address]
--- OUTSIDE RECORDS SUMMARY | 2023-04-27 13:35 | XMS_ITS | Continuity of Care Document ---
Author Name Unknown Organization [facility] Address [address] [place] [address]- Care Team Providers Care Regional Rehabilitation Director Name Role Phone Kathya Tabor MD Primary Care Physician En[place] [facility] [place] Date(s): 01/11/23 - 02/10/23 [facility] [address] [place] [id number] Allergies, Adverse Reactions, Alerts Substance Reaction Severity Status amoxicillin severe hives,trouble breathing Active penicillin severe hives,trouble breathing Active Immunizations Given and Recorded Vaccine Date Status Refusal Reason tetanus/diphtheria/pertussis, acel(Tdap) 11/09/22 Given tetanus/diphtheria/pertussis, acel(Tdap) 07/26/17 Recorded influenza virus vaccine, inactivated 07/26/17 Eliel rded Hepatitis A Pediatric Vaccine 02/09/16 Recorded Hepatitis A Pediatric Vaccine 02/05/15 Recorded Medications Benadryl 25 mg oral capsule 1 capsule = 25 mg, By Mouth, 3 times a day, PRN for itching, for 7 days, # 24 capsule, 0 Refills, Acute 02/15/23 12:47:00 EDT, 02/08/23 12:47:00 EDT, Capsule, [id number], Partial fill upon patient request if the prescription is for a schedule... Start Date: 02/08/23 Stop Date: 02/15/23 Status: Ordered hydrocortisone 1% topical cream 1 application, Topically, 3 times a day, for 14 days, # 45 Gm, 0 Refills, Acute 02/22/23 12:46:00 EDT, 02/08/23 12:46:00 EDT, Cream, [id number], Partial fill upon patient request if the prescription is for a schedule II opioid drug., 1 applica... Start Date: 02/08/23 Stop Date: 02/22/23 Status: Ordered Multivitamins with Vitamin B Complex, Vitamin C, Minerals and L- Methylfolate oral capsule 1 capsule, By Mouth, Daily in AM, 0 Refills, Maintenance, 08/11/20 15:23:00 EST, Capsule, Partial fill upon patient request if the prescription is for a schedule II opioid drug. Start Date: 08/11/20 Status: Ordered sertraline 25 mg oral tablet 1 tablet = 25 mg, By Mouth, Daily, # 30 tablet, 0 Refills, Maintenance, 02/02/23 15:46:00 EDT, Tablet, [facility]/pharmacy #[id number], Partial fill upon patient request if the prescription is for a schedule II opioid drug., 158, cm, 01/29/23 9:00:00 EDT, Height,... Start Date: 02/02/23 Status: Ordered Xulane 150 mcg-35 mcg/24 hr transdermal film, extended release 1 patch, Topically, Every week, Wait until 6 weeks after delivery before starting this medication. Apply a new patch weekly for 3 weeks, then remove patch for 1 week., # 12 each, 3 Refills, Maintenance, 01/27/23 11:30:00 EDT, [facility]/pharmacy #[id number], Parti... Start Date: 01/27/23 Status: Ordered [...] Pediatrics MD Member Role: PCP Address: Address: [address] [place] [address]- Name: Cristiane GRANT, Madi Ayala Position: [facility] HOSE SPRAYER MD Member Role: Lifetime HOSE SPRAYER Physician Address: Address: [address] [facility] [place] [address]- Care Team Related Persons Name: LOWMALENA Address: [address] [place] [address] Name: MADDIE VENTURA Address: [employer] Address: [address] [place] [address] [place] Name: SUSHILA VENTURA Address: [address] [place] [address]
--- OUTSIDE RECORDS SUMMARY | 2023-04-27 13:35 | XMS_ITS | Continuity of Care Document ---
Author Name Unknown Organization [facility] Address [address] [place] [address]- Care Team Providers Care Director [place] Sales Name Role Phone Kathya Tabor MD Primary Care Physician Encounter [facility] [place] Date(s): 02/19/23 - 03/21/23 [facility] [address] [address] Allergies, Adverse Reactions, Alerts Substance Reaction Severity [...] Replace Required Details, Route to Pharmacy Electronically, [facility] [id number], 158, cm, 03/13/23 9:25:00 EDT, Mee... Start Date: 03/16/23 Status: Ordered Xulane 150 mcg-35 mcg/24 hr transdermal film, extended release 1 patch, Topically, Every week, Wait until 6 weeks after delivery before starting this medication. Apply a new patch weekly for 3 weeks, then remove patch for 1 week., # 12 each, 3 Refills, Maintenance, 01/27/23 11:30:00 EDT, [facility]/pharmacy #[id number], Parti... Start Date: 01/27/23 Status: Ordered [...] Team Personnel Name: Kathya Tabor MD Position: [facility] General Pediatrics MD Member Role: PCP Address: Address: [address] [place] [address]- Name: Madi Sauer MD Position: [facility] EDGE STAINER MACHINE MD Member Role: Lifetime EDGE STAINER MACHINE Physician Address: Address: [address] [place] [address] Women[facility] Peritoneal Dialysis [place] [address]- Care Team Related Persons Name: MALENA KELSEY Address: [address] [place] [address] Name: MADDIE VENTURA Address: [employer] Address: [address] [place] [address] [place] Name: SUSHILA VENTURA Address: [address] [place] [address]
--- OUTSIDE RECORDS SUMMARY | 2023-04-27 13:35 | XMS_ITS | Continuity of Care Document ---
Author Name Unknown Organization [facility] ter Address [address] [place] [id number] Care Team Providers Care Pipe Cutter Name Role Phone Kathya Tabor MD Primary Care Physician [phone] Encounter [facility] Date(s): 01/24/23 - 01/29/[address] [address]- Discharge Disposition: A-D/C Home Attending Physician: Corky Hastings MD Admitting Physician: Corky Hastings MD Referring Physician: Leann Meng CNM Allergies, Adverse Reactions, Alerts Substance Reaction Severity Status amoxicillin severe hives,trouble breathing Active penicillin severe hives,trouble breathing Active Immunizations Given and Recorded Vaccine Date Status Refusal Reason tetanus/diphtheria/pertussis, acel(Tdap) 11/09/22 Given tetanus/diphtheria/pertussis, acel(Tdap) 07/26/17 Recorded influenza virus vaccine, inactivated 07/26/17 Eliel rded Hepatitis A Pediatric Vaccine 02/09/16 Recorded Hepatitis A Pediatric Vaccine 02/05/15 Recorded Medications acetaminophen 325 mg oral tablet 650 mg, By Mouth, Every 4 hours, for 10 days, (1-3), may give 325mg per patient preference and re-dose with 325mg within 4 hours, if needed. Patient should only receive a total of 650mg of Acetaminophen every 4 hours., # 50 tablet, Refills 0, Tot. R... Start Date: 01/28/23 Stop Date: 02/07/23 Status: Ordered Acetaminophen Tablet 650 mg, Tablet, By Mouth, (1-3), may give 325mg per patient preference and re- dose with 325mg within 4 hours, if needed. Patient should only receive a total of 650mg of Acetaminophen every 4 hours., 01/29/23 9:00:00 EDT Start Date: 01/29/23 Stop Date: 01/29/23 Status: Completed acetaminophen/butalbital/caffeine 325 mg-50 mg-40 mg oral tablet 2 tablet, By Mouth, Every 6 hours, PRN for headache, not to exceed 6 tablets/day not to exceed 4000mg acetaminophen per day, # 30 tablet, 1 Refills, Maintenance, 10/02/22 11:27:00 EDT, Tablet, [facility]/pharmacy #[id number], Partial fill upon patient request if... Start Date: 10/02/22 Status: Ordered docusate sodium 100 mg oral tablet = 100 mg, By Mouth, 2 times a day, # 100 tablet, 0 Refills, Maintenance, 01/28/23 14:01:00 EDT, Tablet, [facility]/pharmacy #[id number], Partial fill upon patient request if the prescription is for a schedule II opioid drug., 158, cm, 01/28/23 9:03:00 EDT, Height,... Start Date: 01/28/23 Stop Date: 02/07/23 Status: Ordered famotidine 20 mg oral tablet See Instructions, TAKE 1 TABLET BY MOUTH TWICE A DAY, # 60 tablet, Refills 1, Maintenance, 12/12/2310:42:00 EDT, Instructions Replace Required Details, Route to Pharmacy Electronically, [id number], 157.48, cm, 12/07/22 10:20:00 EDT, Height, 96.1... [...] Date: 11/20/22 Stop Date: 05/19/23 Status: Ordered ibuprofen 800 mg oral tablet 800 mg, By Mouth, 3 times a day, PRN, for 10 days, # 60 tablet, Refills 0, Tot. Refills 0, Acute 02/07/23 14:01:00 EDT, Pain , Mild, 01/28/23 14:01:00 EDT, Route to Pharmacy Electronically, [facility]/pharmacy #[id number], Partial fill upon patient request if the... Start Date: 01/28/23 Stop Date: 02/07/23 Status: Ordered metFORMIN 500 mg oral tablet 2 tablet = 1,000 mg, By Mouth, Daily at bedtime, # 60 tablet, 1 Refills, Maintenance, 01/17/23 14:01:00 EDT, [facility]/pharmacy #[id number], Partial fill upon patient request if the prescription is for a schedule II opioid drug., 157.48, cm, 01/11/23 10:17:00 EDT... Start Date: 01/17/23 Status: Ordered oxyCODONE 5 mg oral tablet 5 mg, By Mouth, Every 3 hours, PRN, for 7 days, (7-10), # 10 tablet, Refills 0, Tot. Refills 0, Acute 02/04/23 14:01:00 EDT, Pain , Severe, 01/28/23 14:01:00 EDT, Route to Pharmacy Electronically, [facility]/pharmacy #[id number], Partial fill upon patient request... Start Date: 01/28/23 Stop Date: 02/04/23 Status: Ordered OxyCODONE IR Tablet 5 mg, Tablet, By Mouth, Every 3 hours, PRN for Pain , Severe, (7-10), Routine, 01/27/23 4:29:00 EDT Start Date: 01/27/23 Stop Date: 01/29/23 Status: Discontinued Multivitamins with Vitamin B Complex, Vitamin C, Minerals and L- Methylfolate oral capsule 1 capsule, By Mouth, Daily in AM, 0 Refills, Maintenance, 08/11/20 15:23:00 EST, Capsule, Partial fill upon patient request if the prescription is for a schedule II opioid drug. Start Date: 08/11/20 Status: Ordered simethicone 80 mg oral tablet, chewable 80 mg, Chew, 3 times a day, PRN, for 10 days, # 100 tablet, Refills 0, Tot. Refills 0, Acute 02/07/23 14:01:00 EDT, Gas, 01/28/23 14:01:00 EDT, Route to Pharmacy Electronically, [facility]/pharmacy #[id number], Partial fill upon patient request if the prescription... Start Date: 01/28/23 Stop Date: 02/07/23 Status: Ordered Tums 500 mg Tablet 2 tablet = 1,000 mg, Chew, 3 times a day, PRN Indigestion, 0 Refills, Maintenance, 01/28/23 14:01:00 EDT, Chew Tablet, Partial fill upon patient request if the prescription is for a schedule II opioid drug. Start Date: 01/28/23 Status: Ordered Xulane 150 mcg-35 mcg/24 hr transdermal film, extended release 1 patch, Topically, Every week, Wait until 6 weeks after delivery before starting this medication. Apply a new patch weekly for 3 weeks, then remove patch for 1 week., # 12 each, 3 Refills, Maintenance, 01/27/23 11:30:00 EDT, [facility]/pharmacy #[id number], Parti... Start Date: 01/27/23 Status: Ordered Problem List Condition Confirmation Course Effective Dates Status Health St atus Informant Gestational diabetes Confirmed Active HSV-2 infection complicating Confirmed Active Low-lying placenta Confirmed Active Obesity in Confirmed Active Confirmed Active Procedures Procedure Date Related Diagnosis Body Site Status delivery only; 01/26/23 C ompleted Vital Signs Most recent to oldest [Reference Range]: 1 2 3 Height 158 cm (01/29/23 9:00 AM) 158 cm (01/29/23 12:08 AM) 158 cm (01/28/23 9:00 PM) Weight 98.0 kg (01/24/23 8:54 AM) Oxygen Saturation [94-100 %] 100 % (01/29/23 9:00 AM) 99 % (01/29/23 12:08 AM) 97 % (01/28/23 4:15 PM) Pulse Rate [55-90 bpm] 89 bpm (01/29/23 9:00 AM) 98 bpm *H* (01/29/23 12:08 AM) 91 bpm *H* (01/28/23 4:15 PM) Body Mass Index [18.5-24.99 kg/m2] 39.26 kg/m2 *>HHI* (01/24/23 8:54 AM) Blood Pressure [90-138/55-84 mm Hg] 106/63mm Hg (01/29/23 9:00 AM) 107/65mm Hg (01/29/23 12:08 AM) 104/58mm Hg (01/28/23 4:15 PM) Respiratory Rate [16-30 br/min] 18 br/min (01/29/23 12:16 PM) 18 br/min (01/29/23 9:29 AM) 18 br/min (01/29/23 9:29 AM) Temperature [96.8-100.4 DegF] 97.6 DegF (01/29/23 9:00 AM) 98 DegF (01/29/23 12:08 AM) 97.8 DegF (01/28/23 4:15 PM) Mode of Delivery (Oxygen) Room air (01/29/23 9:00 AM) Room air (01/29/23 12:08 AM) Room air (01/28/23 12:07 AM) Blood pressure sites Arm, left (01/29/23 9:00 AM) Arm, left (01/29/23 12:08 AM) Arm, right (01/28/23 12:07 AM) Temperature Route Oral (01/29/23 9:00 AM) Oral (01/29/23 12:08 AM) Oral (01/28/23 4:15 PM) Dry Weight 98.0 kg (01/24/23 8:54 AM) Social History Social History Type Response Smoking Status Never (less than 100 in lifetime) entered on: 06/19/22 Sex History and physical note * Vidal KING SOCIOLOGY PROFESSOR, Jarrod Ogden: PERFORM Event Display: History and Physical Hospital Authored Date: Patient: ??CARLOS CATES ? Age:??23 Years?Sex:??Female?:??2000?? OB Reason for Admission OB Reason for Admission?? No qualifying data available. LMP/EGA/LAYLA Gestational Age (EGA) and LAYLA? * Note: EGA calculated as of 01/24/2023 ?? LAYLA:??01/31/2023?EGA*:??39 weeks ? History?(0,0,0,0)?Method:??Last Menstrual Period??(04/26/2022) History of Present Illness Pt presents for induction at 39 weeks in setting of GDMA2, on metformin. She reports feeling well overall, +fm, no LOF, no bleeding, no uc's.?? Exam in office last week- /-3 ?? PCN allergy known low lying placenta-last u/s 36 weeks 16mm from os HSV-family unaware (FOB is aware), taking Valtrex, no s/sx lesion/prodrome GDMA2-FBS better since starting metformin GERD-on pepcid ?? denies any sig med hx Review of Systems Constitutional??- neg Endocrine??- neg Breast??- neg Urinary??- no dysuria, frequency, odor, hematuria Winder Hand??- no vaginal discharge, no itching, no odor, no lesions Neuro??- neg, no headaches Psych??- neg, no depression or anxiety Physical Exam Vitals & Measurements T:??98.2?F?? HR:??105??(Peripheral)?? RR:??16?? BP:??119/76?? SpO2:??98%?? HT:??158??cm?? WT:??98.0??kg?? BMI:??39.26?? Constitutional?? Appearance: Normal affect.?? Neurological/Psychiatric?? Orientation: Time, Place, Person.?? Affect: Normal.?? Heart Normal. RRR. Lungs Normal. CTA. Lymphatic?? Lymphatic: Normal exam.?? Skin?? Skin: Normal exam.?? Abdomen/GI?? Gravid.?? Obese.?? Not Tender.?? No Masses.?? Spec Exam no external lesions seen, no vaginal or cervical lesions seen Gynecologic?? External Genitalia: no lesions Urethral meatus: Normal exam.?? Urethra: normal to palpation.?? 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 Gestational diabetes (O24.419):??Metformin at HS diabetic diet in labor, BS on admission GTT PP ?? Low-lying placenta (O44.40):??high risk PPH, type and screen sent cbc 11.8/36.0 ?? Encounter for induction of labor (Z34.90):??see orders, reviewed indications for induction and methods used for ripening and risks assoc w Pitocin. pgy1 notified earlier of admission. confirmed cephalic presentation by bedside u/s done by Dr. Stevens pt declines zarate bulb placement, would like to proceed w misoprostol. plan IV meds for pain prn plan f/u 4 hours/prn ?? OB History History?(0,0,0,0)?No previous pregnancies history have been recorded Labs Labs Labs & Tests ABO: A (06/19/22) Antibody Screen: Negative (01/24/23) Blood Type: A Positive (01/24/23) Chlamydia Trachomatis Amplified Probe: NEGATIVE (01/04/23) Creatinine-Blood: 0.6 mg/dL (07/05/22) Down Syndrome Age Risk FTS: Age Risk: (07/18/22) Down Syndrome Scrn Risk FTS: Screening Risk: (07/18/22) Glucose 3hr Gest Germán, +120 minutes:??156 mg/dL??High (11/16/22) Glucose 3hr Gest Germán, +180 minutes: 139 mg/dL (11/16/22) Glucose 3hr Gest Germán, +60 minutes:??188 mg/dL??High (11/16/22) Glucose 50 Gm, +60 Minutes:??152 mg/dL??High (11/09/22) Glucose Tolerance, Fastin mg/dL (11/16/22) Hct: 36 % (01/24/23) Hepatitis B Surface Antigen: NEGATIVE (06/19/22) Hepatitis C Ab: NEGATIVE (06/19/22) Hgb: 11.8 Gm/dL (01/24/23) HIV 4th Generation Ab-Ag Result: NEGATIVE (06/19/22) RH Test Only: Positive (06/19/22) RPR Titer Result: NOT INDICATED (06/19/22) Rubella IgG Ab: POSITIVE (06/19/22) Syphilis Screen by [facility]OY: NEGATIVE (06/19/22) Trisomy 18 Scrn Risk FTS: Screening Risk: (07/18/22) Urine Culture: Urine Culture (06/19/22) Problem List Active Active Problem List Gestational diabetes: (Medical) HSV-2 infection complicating : (Medical) Low-lying placenta: (Medical) Obese class II: (Medical) Obesity in : (Medical) Placenta previa: (Medical) : (Obstetric) (04/26/22) : (Medical) Procedure/Surgical History Polypectomy: 08/19/20 Home Medications Acetaminophen/Butalbital/Caffeine: 2 tablet, By Mouth, Every 6 hours, PRN (for headache), not to exceed 6 tablets/daynot to exceed 4000 mg acetaminophen per day Durable Medical Equipment: See Instructions, use QID to test blood sugars Durable Medical Equipment: See Instructions, use QID to test blood sugars Durable Medical Equipment: See Instructions, use QID to test blood sugars Famotidine: See Instructions, TAKE 1 TABLET BY MOUTH TWICE A DAY Metformin: 1,000 mg = 2 tablet, By Mouth, Daily at bedtime Multivitamin, : 1 capsule, By Mouth, Daily in AM Allergies amoxicillin??( severe hives,trouble breathing ) penicillin??( severe hives,trouble breathing ) Social History Alcohol Use: Past. Frequency: 1-2 times per month. Other: occasional social drinking. Electronic Cigarette/Vaping Electronic Cigarette Use: Never. Employment/School Status: Unemployed. Exercise Self assessment: Fair condition. Home/Environment Living situation: Home/Independent. Lives with: Father, Spouse, Stepson. Other: 2 dogs. Nutrition/Health Diet: Regular. Sexual Sexually involved in last 6 months: Yes. Gender identity: Identifies as female. Self described orientation: Straight or heterosexual. Preferred pronoun: She/her. Substance Abuse Use: Never. IV drug use: No. Tobacco Use: Never (less than 100 in lifetime). Family History Mother (Maternal): Diabetes mellitus Father (Paternal): Diabetes mellitus Mat. Grandmother (): Cancer Plan OB Plan Circumcision Plan: Before discharge (01/24/23) Contraceptives: Combined oral contraceptive device (pill/patch/ring) (01/24/23) Feeding Plan: Formula (01/24/23) Labor Coping Mechanisms: Epidural (01/24/23) Patient Requests: Hannah. patch for contraception once bf well established. (01/24/23) Hospital Progress note * Padmini Piedra RN: PERFORM, SIGN, VERIFY Event Display: Progress Note Hospital Authored Date: [id number] Patient: CARLOS CATES Age: 23 years Sex: Female : 2000 Associated Diagnoses: None Author: Padmini Piedra RN Discharge instructions reviewed by pt by day RN yesterday due to pt possible discharge yesterday. Pt signed and verbalized understanding. Pt and FOB reporting no further questions at this time. Prescriptions, next dose times, and follow up appointment reviewed by pt and pt verbalized understanding.All valuables stated to be with pt at time of discharge. ID and security bands verified and removedper protocol. Pt discharged from unit to home with baby, ambulatory, and stable. Findings Problem Related to Alteration in Comfort : Alteration in Comfort/new 01/29/2023 12:00 EDT Alteration in Comfort Related to Surgery, Other: c/s Goals & Outcomes: Comfort Pt will report acceptable level of comfort & pain control, Pt will state importance of adhering to pain strategy regime, Pt will demonstrate necessary skills to manage pain, Non-verbal indicators will indicate comfort/pain control Interventions Implemented: Comfort Assess pain using appropriate pain scale/tools, Assess aggravating factors & prevent them accordingly, Assess alleviating factors & promote them accordingly Goals/Interventions, Comfort Yes Comfort, Problem Start 01/26/2023 6:13 Reviewed plan with, Comfort Patient Patient Progression, Comfort Resolved problem Comfort, Problem Ongoing No Comfort, Problem Resolved 01/29/2023 12:25 . * Noemi Lehman RN: PERFORM, SIGN, VERIFY Event Display: Progress Note Hospital Authored Date: [id number] Patient: CARLOS CATES Age: 23 years Sex: Female : 2000 Associated Diagnoses: None Author: Noemi Lehman RN Findings Problem Related to Alteration in Comfort : Alteration in Comfort/new 01/28/2023 21:00 EDT Alteration in Comfort Related to Surgery, Other: c/s Goals & Outcomes: Comfort Pt will report acceptable level of comfort & pain control, Pt will state importance of adhering to pain strategy regime, Pt will demonstrate necessary skills to manage pain, Non-verbal indicators will indicate comfort/pain control Interventions Implemented: Comfort Assess pain using appropriate pain scale/tools, Assess aggravating factors & prevent them accordingly, Assess alleviating factors & promote them accordingly Goals/Interventions, Comfort Yes Comfort, Problem Start 01/26/2023 6:13 Reviewed plan with, Comfort Patient Patient Progression, Comfort Pt progressing according to plan Comfort, Problem Ongoing Yes . pt awake and alert . OB stable . shift assessment completed on mom . BSX4. Last BM 01/28. abd binderin use . steri strips clean dry and intact . fundus -1 station midline . mild rubra . pt voiding adequately . pass flatus . trace edema observed bilateral pedis . lung sounds clear . no tenderness inbreast . Tylenol , oxycodone and Motrin on board for pain management . Call palacios in reach . non slip socks on . bed in low position . * Corky BAL, Prachi: PERFORM, SIGN, VERIFY Event Display: Progress Note Hospital Authored Date: [id number] Patient: CARLOS CATES Age: 23 years Sex: Female : 2000 Associated Diagnoses: None Author: Prachi Fried RN Findings Problem Related to Alteration in Comfort : Alteration in Comfort/new 01/27/2023 21:00 EDT Alteration in Comfort Related to Surgery, Other: c/s Goals & Outcomes: Comfort Pt will report acceptable level of comfort & pain control, Pt will state importance of adhering to pain strategy regime, Pt will demonstrate necessary skills to manage pain, Non-verbal indicators will indicate comfort/pain control Interventions Implemented: Comfort Assess pain using appropriate pain scale/tools, Assess aggravating factors & prevent them accordingly, Assess alleviating factors & promote them accordingly BH Goals/Interventions, Comfort Yes Comfort, Problem Start 01/26/2023 6:13 Reviewed plan with, Comfort Patient Patient Progression, Comfort Pt progressing according to plan Comfort, Problem Ongoing Yes . OB stable. Fundus remains firm midline 1 below umbilicus, lochia mild. Steri strips dry. intact. Old dried blood drainage on steri. Patient reports no clots denies saturation of pads within 1 hour. Passing gas, voiding, appropriately. Patient ambulating in room without assistance. Pain is well controlled this shift and educated on staying on top of pain. Patient reports understanding of pain control. Call palacios appropriately in place. Please see CIS for full assessment. Will continue to monitor throughout shift. Note * Padmini Piedra RN: PERFORM Event Display: Discharge/Transfer Note Hospital Authored Date: [id number] Nursing Discharge Note Entered On: 01/29/2023 12:38 EDT Performed On: 01/29/2023 12:25 EDT by Padmini Piedra RN Nursing Discharge Note 2 Discharge Time : 01/29/2023 12:25 EDT Discharge Level of Care at Discharge : Home/[facility] Steam Powerplant Supervisor Utilized : No Patient Left Unit Via : Ambulatory Patient Accompanied Off Unit with : Significant other, Parent DC Instructions Provided & Signed by Pt : Yes Patient Understands D/C Instructions : Yes Verbalized Understanding of D/C Plan By : Patient Patient Instructions Discharge Signed : Yes Did Pt have Specialty Bed or Wound Vac : No Padmini Piedra RN - 01/29/2023 12:38 EDT * Roslyn Carranza MD: PERFORM Event Display: Discharge/Transfer Note Hospital Authored Date: [id number] Patient: ??CARLOS CATES ? Age:??23 Years?Sex:??Female?:??2000?? Admit Date Admission Date: 01/24/2023 Discharge Date 01/29/2023 [facility] Course IOL course summary: - Admitted on 01/24 for GDMA2 (Metformin) - SVE /-3 on admission - S/p 3 doses 50 mcg PO misoprostol; most recent dose at 22:08 - SVE /-3 at 02:00 - Pitocin started at 02:41 - 60 cc Zarate placed at 03:30 after 2 mg morphine administered - Zarate out at 08:45 with gentle traction. - SROM with zarate expulsion. - Pitocin currently running at 8 mU/min ?? summary: Decision for CS made due to arrest of descent. CS complicated by atony requiring methergine and hemabate as well as Blynch suture, QBL 1058. course uncomplicated. ?? On day of discharge: Patient is resting comfortably and feeling well. States her pain is well controlled with PO pain meds. Her lochia is like a medium period. She is ambulating, voiding spontaneously, and tolerating regular diet. Has passed flatus. Bonding with baby appropriately. ?? Discussed self care, and depression. Patient was counseled on warning signs for calling or returning to care including but not limited to fever of 100.4 or greater, heavy vaginal bleeding, foul-smelling vaginal discharge, difficulty or burning with urination, nausea and vomiting with inability to tolerate food, pain not controlled by medications, shortness of breath or chest pain, and depression. Counseled to place nothing in the vagina in the next 4-6wks. Patient verbalized understanding. Objective/Physical Exam on Day of Discharge Vitals & Measurements T:??98?F?? HR:??98??(Peripheral)?? RR:??18?? BP:??107/65?? SpO2:??99%?? HT:??158??cm?? WT:??98.0??kg?? BMI:??39.26?? Assessment/Plan/Discharge Diagnosis Assessment:??Patient is a 23yo G1 now P1 POD2 following primary with QBL 1058 mL. Patientmeeting appropriate and post-operative milestones. ?? Gestational diabetes (O24.419):??- 2 hr GTT ( ) with [facility] Care: Screening for diabetes Future Appointments Sunday 1:50 PM EDT ?? With: Regina Polanco CNM Where: [facility] IT SUPPORT TECHNICIAN [address] [address]- Status: Pending Sunday 9:20 AM EDT ?? With: Regina Polanco CNM Where: [facility] IT SUPPORT TECHNICIAN [address] [address]- Status: Pending Delivery Summary Delivery Summary Maternal Information ??Labor Information ?Labor Onset, Date/Time: ??01/25/23 02:41:00 ??Delivery Information ?Gestational Age at Delivery: ??39W 2D ?Anesthesia OB: ??Epidural ??01/25/23 16:45:18 ?Blood Loss - Quantitative: ??1058 mL ? Baby A ??Delivery Information ?Delivery Type: ??, low transverse ?Reason for : ??Arrest of descent ? Priority: ??Non scheduled ?Incision Time for : ??01/26/23 03:01:00 ?Date, Time of : ??01/26/23 03:13:00 ? Position: ??Supine ?Foot of bed removed: ??No ?Delayed Cord Clamping: ??Yes ?Placenta Delivery Date/Time: ??01/26/23 03:15:00 ??Labor Information ?ROM Date, Time: ??01/25/23 08:30:00 ? monitoring: ??External monitor ?? Information ? Outcome: ??Live ? Weight: ??3.952 kg ? Score 1 minute: ??7 ? Score 5 minute: ??9 ? Score 10 minute: ??9 ?Transferred To: ?? Care area with Family ?Gender: ??Male ? Procedures Performed Section Primary ? Discharge Medications ???Acetaminophen (acetaminophen 325 mg oral tablet)???Acetaminophen/Butalbital/Caffeine (acetaminophen/butalbital/caffeine 325 mg-50 mg-40 mg oral tablet)???Calcium Carbonate (Tums 500 mg Tablet)???Do cusate (docusate sodium 100 mg oral tablet)???Durable Medical Equipment (Freestyle Lite Lancets)???Durable Medical Equipment (Freestyle Lite Monitor)???Durable Medical Equipment (Freestyle Lite Test Strips)???Ethinyl Estradiol-Norelgestromin (Xulane 150 mcg-35 mcg/24 hr transdermal film, extended release)???Famotidine (famotidine 20 mg oral tablet)???Ibuprofen (ibuprofen 800 mg oral tablet)???Metformin (metFORMIN 500 mg oral tablet)???Multivitamin, ( Multivitamins with Vitamin B Complex, Vitamin C, Minerals and L-Methylfolate oral capsule)???Oxycodone (oxyCODONE 5 mg oral tabl et)???Simethicone (simethicone 80 mg oral tablet, chewable) Immunizations during Hospitalization Vaccine Date Status tetanus/diphtheria/pertussis, acel(Tdap) 11/09/2022 Given influenza virus vaccine, inactivated 07/26/2017 Recorded tetanus/diphtheria/pertussis, acel(Tdap) 07/26/2017 Recorded Hepatitis A Pediatric Vaccine 02/09/2016 Recorded Hepatitis A Pediatric Vaccine 02/05/2015 Recorded Feeding Method [place] Feeding Method: Formula (01/26/23 05:00:00) Patient Instructions Discharge: home, Call your the office with any concerns including:?? Heavy vaginal bleeding?? Fever of 100.4 or greater Foul-smelling vaginal discharge Difficulty or burning with urination?? Nausea and vomiting with inability to tolerate food,?? Pain not controlled by your prescribed medications Shortness of breath or chest pain. Swelling of the extremities. ?? General Instructions: - Avoid lifting anything 15 lbs or greater until cleared by doctor. - Stairs are OK but avoid multiple trips/ skipping steps and go slowly. - Walk as often as you are able. - Do not put anything in the vagina. No intercourse, tampons, or douching - Continue your stool softeners (examples: colace/docusate, senna, miralax) - Shower as usual. Avoid tubs/ soaking/ pools. * Tadeo BAL, Padmini: PERFORM Event Display: Patient Education/Instruction Authored Date: [id number] Inpatient Adult Discharge Instructions [address] [address] Name: CARLOS CATES : 2000 Visit: 01/24/2023 08:25:00 Current Date: 01/29/2023 12:05 Account: [id number] Inpatient Adult Discharge Instructions We would like [...] and their families. Surveys are administered by [employer] ?? If further treatment with your primary care physician or another doctor is recommended, it is important for you to keep the appointment. Call your primary care physician or return to the Emergency Department immediately if your condition worsens, fails to improve, or new symptoms develop. If you need to find a doctor, you can call [facility] for a referral at [phone] or toll free at [phone]) or log in to [email or web address].. ?? You can view and manage your care through the patient portal or by using a health care yola of your choosing. [employer] is a website that allows you to securely view your medical information including your hospital discharge summary, office visit summaries, medications and follow-up visits. You can also request appointments, renew medications, and request access to your medical information using a health care yola of your choosing, or just ask a question. You can enroll at [email or web address] or register during your next office visit. You have been discharged from [facility], Patient Care Unit: WIN2. If you have any questions regarding these instructions after you leave, please call us and we will be happy to assist you. [facility] Your Care Team Attending Physician Darling GRANT, Corky Discharging Providers Tere GRANT, Roslyn Reason for Admission GDM ON MEDS LAYLA 01/31/23 Your Diagnosis HSV-2 infection complicating Gestational diabetes Low-lying placenta Encounter for induction of labor Vaginal laceration care following delivery anemia Tests Performed Below is a partial list of the tests performed during your hospitalization. You may have had other tests and procedures not included in this list. Please discuss all test results with your provider. CBC COVID-19 (2019 Novel Coronavirus) PCR?-- Results Pending -- GLUCOSE POC Type and Screen You will be contacted within 72 hours with your results. Primary Care Provider Leander GRANT, Kathya Oneill Advance Directive Health Care Proxy on File Yes - Health Care Proxy Discharge Vitals Temperature: 97.6 DegF Height: 158 cm Pulse Rate: 89 bpm Weight: 98 kg Respiratory Rate: 18 br/min Body Mass Index:??39.26 kg/m2??Critical Respiratory Rate: 18 br/min Body surface area: 2.07 Systolic Blood Pressure: 106 mm Hg ?? Diastolic Blood Pressure: 63 mm Hg ?? Oxygen Saturation: 100 % ?? Studies Pending All tests and labs ordered during this hospital stay have been completed unless listed below. Please discuss all pending results with your provider listed above in these instructions. ?? COVID-19 (2019 Novel Coronavirus) PCR What to do next Instructions From Your Doctor Discharge: home, Call your the office with any concerns including:?? Heavy vaginal bleeding?? Fever of 100.4 or greater Foul-smelling vaginal discharge Difficulty or burning with urination?? Nausea and vomiting with inability to tolerate food,?? Pain not controlled by your prescribed medications Shortness of breath or chest pain. Swelling of the extremities. ?? General Instructions: - Avoid lifting anything 15 lbs or greater until cleared by doctor. - Stairs are OK but avoid multiple trips/ skipping steps and go slowly. - Walk as often as you are able. - Do not put anything in the vagina. No intercourse, tampons, or douching - Continue your stool softeners (examples: colace/docusate, senna, miralax) - Shower as usual. Avoid tubs/ soaking/ pools. Discharge Orders Scheduled Follow-Up Appointments Sunday 1:50 PM EDT ?? With: Regina Polanco CNM Where: [facility] IT SUPPORT TECHNICIAN [address] [address]- Status: Pending Sunday 9:20 AM EDT ?? With: Regina Polanco CNM Where: [facility] IT SUPPORT TECHNICIAN [address] [address]- Status: Pending You Need to Schedule the Following Appointments Follow Up with??Follow up, 4-5 Weeks Discharge Medications CARLOS CATES :2000 Visit Date:01/24/2023 Medications: Please continue your medications until treatment is completed or stopped by your provider. Medications not listed below should be discontinued. Discuss any questions related to medications with your provider. What How Much When Instructions Next Dose New Acetaminophen (acetaminophen 325 mg oral tablet) 650 Milligram Oral Every 4 hours Duration: 10 Days (1-3), may give 325mg per patient preference and re-dose with 325mg within 4 hours, if needed. ?? Patient should only receive a total of 650mg of Acetaminophen every 4 hours. ?? Pickup at [facility]/pharmacy #0843 4:30pm New Calcium Carbonate (Tums 500 mg Tablet) 1,000 Milligram Chew 3 times a day as needed for Indigestion New Docusate (docusate sodium 100 mg oral tablet) 100 Milligram Oral Twice a day Duration: [address] [facility]/pharmacy #0843 8:30pm New Ethinyl Estradiol-Norelgestromin (Xulane 150 mcg-35 mcg/ 24 hr transdermal film, extended release) 1 patch(es) Topically Every week Refills: 3 Wait until 6 weeks after delivery before starting this medication. Apply a new patch weekly for 3 weeks, then remove patch for 1 week. ?? Pickup at [facility]/pharmacy #0843 New Ibuprofen (ibuprofen 800 mg oral tablet) 800 Milligram Oral 3 times a day as needed for Pain , Mild Duration: 10 [facility] New Oxycodone (oxyCODONE 5 mg oral tablet) 5 Milligram Oral Every 3 hours as needed for Pain , Severe Duration: 7 Days (7-10) ?? [facility] New Simethicone (simethicone 80 mg oral tablet, chewable) 80 Milligram Chew 3 times a day as needed for Gas Duration: 10 Days [facility] when needed Unchanged Acetaminophen/ Butalbital/ Caffeine (acetaminophen/ butalbital/ caffeine [...] 1 capsule Oral Daily in the morning [id number] [address] [place] [address] [phone] Test Results Below is a partial list of the most recent Laboratory test results done prior to this discharge. You may have had other tests and procedures not included in this list. Please discuss all test resultswith your provider. RBC Available - RE (01/24/2023) RBC Unit ID - [id number] (01/24/2023) CBC (01/26/2023) ???WBC - 20.2 k/mm3???RBC - 3.20 m/mm3???Hgb - 9.6 Gm/dL???Hct - 28.5 %???MCV - 89.1 femtoliters???MCH - 30.0 pg???MCHC - 33.7 g/dL???Platelet Count - 191 k/mm3???RDW-SD - 47.7 femtoliters???MPV - 12.3 femtoliters???Nucleated RBC (Automated) - 0.0 #/100 WBC'S???Abs. NRBC - 0.0 k/mm3 GLUCOSE POC (01/26/2023) ???Glucose, POC - 171 mg/dL Type and Screen (01/24/2023) ???Blood Type - A Positive???Antibody Screen - Negative Allergies (NKA means No Known Allergies) amoxicillin??( severe hives,trouble breathing ) penicillin??( severe hives,trouble breathing ) Problems Active Problems??(6) Gestational diabetes?? HSV-2 infection complicating ?? Low-lying placenta?? Obesity in ? Education Materials Below is the list of Educational Leaflet Providered with your Discharge Instructions. Valuables and Belongings I fully understand and agree that [facility] accepts no responsibility for all my personal [...] encouraged to send valuables and belongings home. ?? Review of Valuable and Belonging List: With patient Date for Pt to Sign Valuables/Belongings: 01/28/23 09:15:00 ?? Other Discharge Information ? Pulmonary Rehab Status?? Pulmonary Rehab Discharge Status?? Respiratory Rate: 18 br/min Respiratory Rate: 18 br/min ? Common Emergency [...] of these heart attack warning signs, call to get immediate medical attention! ?? Smoking can increase your chances of developing chronic health problems and can cause harmful effects to other family members in your house. If you smoke, you are strongly encouraged to quit. Please call [facility] at [phone] or [phone]) or log in to [email or web address] for referrals to smoking cessation programs. ?? 326 Suicide & Crisis Lifeline is available 05/02 if you or someone you know needs to find a reason to keep living. By calling 345 you'll be connected to a skilled, trained counselor at a crisis center in your area. INPATIENT DISCHARGE INSTRUCTIONS SIGNATURE PAGE CARLOS CATES Location:[facility] Registration Date and Time:01/24/2023 08:25 EDT Primary Care Physician: Kathya Tabor MD, Attending Physician: Corky Hastings MD, I CARLOS CATES, have received the above patient education materials/instructions and have verbalized understanding. If ambulance or transport services are being used I further acknowledge being given a choice of service. ?? If you need to contact me, please call me at this number: . Patient/Museum Guide Name: Patient/Museum Guide Signature: Relationship to Patient: Witness Name/Signature: Date: * Padmini Piedra RN: PERFORM Event Display: Patient Education Leaflets Authored Date: [id number] COVID-19 Information for Families ?? 87 COVID-19 Information for Families Information from: www.cdc.gov/COVID19 ? What is coronavirus disease 2019 (COVID-19)? Coronavirus disease 2019 (COVID-19) is a respiratory illness that can spread from person to person.The virus that causes COVID-19 is a NEW coronavirus [facility]. ?? How does COVID-19 spread? The virus that causes COVID-19 probably emerged from an animal source, but is now spreading from person to person. The virus spreads mainly between people who are in close contact with one another (within 6 feet) through respiratory droplets produced when an infected person coughs or sneezes. It may be possible that a person can get COVID-19 by touching a surface or object that has the virus on it and then touching their own mouth, nose or eyes. ?? What are the symptoms? (*Most common in children) ??? Fever* ??? Runny nose ??? Aching muscles ??? Cough* ??? Sore throat ??? Congestion ??? A few can have vomiting & diarrhea ?? When should a symptomatic person seek medical care? When symptoms are getting worse ??? Breathing is more difficult ?? Call the doctor immediately if: ??? Breathing is labored ??? Tightness in chest ??? Bluish lips or face ??? New confusion or cannotarouse BEFORE seeking care, call your doctor and tell them you are Being evaluated for COVID-19. ?? What can I do to protect myself and my family from getting COVID-19? Avoid close contact with people who are sick ??? Avoid touching your eyes, nose and mouth with unwashed hands ??? Wash your hands often with soap and water for at least 20 seconds. Especially: - Before you eat, prepare food or feed your children - After diapering an infant or using the bathroom - Use an alcohol-based hand forklift mechanic if soap and water are not available ?? For cleaning use: ? ? Soap & water For disinfection use: ??? Most common EPA-registered household disinfectants should be effective ??? Alcohol solutions with at least 70% alcohol ??? Diluted bleach: - 1 tsp bleach - 1 cup of water ?? What if someone I live with has symptoms? Symptomatic people should: ??? Stay home: - In an area apart from family and pets - With a separate bathroom if possible ??? Restrict activities outside your home except for medical care ??? Cover coughs or sneezes with a tissue or your elbow (discard tissue immediately) ??? Clean and disinfect frequently touched objects and surfaces every day ??? Avoid sharing personal household items: food, drink, dishes, utensils, towels, and bedding ? Is it okay for a mother with symptoms to breastfeed her infant? Breast milk is the best source of nutrition for most infants. However, much is unknown about COVID-19. Whether to start or continue should be determined by the mother in coordination with her healthcare provider. A mother with confirmed or symptoms of COVID-19 should take all possibleprecautions to avoid spreading the virus to her , including washing her hands before touchingthe and wearing a face mask, if possible, while feeding at the breast. If expressing breast milk with a manual or electric breast pump, the mother should wash her hands before touching any pump or bottle parts and follow recommendations for proper pump cleaning after each use. If possible, consider having someone who is well feed the expressed breast milk to the infant. ? * Padmini Piedra RN: PERFORM Event Display: Patient Education Leaflets Authored Date: [id number] : Caring for Yourself ?? 25295 : Caring for Yourself When you have a new little person in your life, it???s easy to forget about yourself. There are newdemands on your time. There are also new responsibilities. But it???s important to take care of yourself. This will help you take better care of your new baby. Healthy habits Here are some healthy tips: ??? Nourish your body with good food, drink plenty of water, and get enough rest. ??? Get exercise when you can. If you leak milk, it will help to??nurse right before the activity. ??? Don't smoke. Smoking is unhealthy for you and may cause you to make less milk. Secondhand smoke is also harmful to your baby. ??? Talk to your healthcare provider about alcohol, if you choose to drink. ??? When you???re sick, tell your healthcare provider that you are .??Few medicines and??illnesses??affect , but it is important to check. ??? Ask your healthcare provider before taking any prescription or yiji-wmj-kpgdjky medicines, herbs, or supplements. ?? Comfy clothes Suggestions for being comfortable when include: ??? Find a comfortable nursing bra.??Many women find underwire uncomfortable. Some stores offer on-site fittings. Ask your healthcare provider or nurse for a referral. ??? If you have leaking milk, place breast pads inside your bra. ??? Choose an extra-supportive bra for exercise. Or you can wear 2 bras at the same time for more support. ??? Wear loose tops that can be lifted for . You can also buy clothes specially madefor moms. ?? A note about sex After delivery, it may take a while before your interest in sex returns. Share your feelings with your partner. Your healthcare provider will let you know when it is safe to resume having sex. When you???re ready, know that: ??? There are several forms of control that can be used while . Ask your healthcare provider what to use for prevention while you are nursing. ??? hormones??may cause vaginal dryness. Some women find using a water-based lubricant makes sex more comfortable. ??? Milk may??leak out??when you are aroused. Applying pressure on the nipple or using breast pads or a towel may help with this. ?? When to call your healthcare provider Call your healthcare provider if: ??? You feel overwhelmed and don't know where to turn. ??? You feel very sad or don???t want to be with your baby. ??? You feel like your baby cries all the time andwon't be soothed. ??? You are unable to exercise, or have sex, without discomfort. ??? You are unsure about a medicine, illness, or activity and its effect on . ?? Last Reviewed Date: 2021 ?? 9325-2156 [employer]. All rights reserved. This information is not intended as a substitute for professional medical care. Always follow your healthcare professional's instructions. ?? * Padmini Piedra RN: PERFORM Event Display: Patient Education Leaflets Authored Date: [id number] Nutrition While ?? 15683 Nutrition While Do I need a special diet for ? You??don't??have to eat a special diet to??make enough milk for your baby.??Your milk will be good quality for your baby no matter what you eat.??But your body needs fuel to make breastmilk. People who are need about 500 extra calories per day.??Some people might need more. Other people might need less.??So eat your fill of a variety of healthy foods. ?? A healthy diet A healthy diet is important for all people who are nursing and offers many benefits to a new parent. When choosing foods, use the chart below as a guide. Bread, cereal, rice, and pasta Vegetables Fruit Milk, yogurt, and cheese Meat, poultry, fish, dry beans, eggs, and nuts Fats, oils, and sweets (in small amounts) ?? What???s good for you? Here are some things to do: ??? Drink fluids when you feel thirsty. There is no specific amount of water you need to drink to make enough milk. ??? Follow healthy eating guidelines. ??? Snack on fruit or low-fat dairy foods if you???re hungry between meals. ??? If your healthcare provider recommends it, keep taking vitamins. ??? Get plenty of rest. ?? What???s not good for you? Here are other things to consider: ??? Limit fatty foods and foods that are high in sugar. This includes foods like cookies and cakes. ??? Be aware that what enters your body may pass into your breastmilk. ??? Limit caffeine. It's not just in coffee. It's also in cola, tea, and chocolate. ??? Limitthe amount of fish you eat that may contain mercury. This includes tuna and swordfish. ??? Talk with your healthcare provider??before taking any??medicines. It's important to let your??healthcare provider??know that you are nursing. Some??medicines??are not safe with . ??? Remember:??Alcohol, cigarettes, and drugs pass into your breastmilk. Talk with your healthcare provider if you are using alcohol, smoking, or using drugs. They want to help you and your baby be as healthy as possible. ?? Last Reviewed Date: 2021 ?? [employer]. All rights reserved. This information is not intended as a substitute for professional medical care. Always follow your healthcare professional's instructions. ?? * Fantasma Huddleston MD: PERFORM, MODIFY Event Display: Discharge/Transfer Note Hospital Authored Date: [id number] Patient: ??CARLOS CATES ? Age:??23 Years?Sex:??Female?:??2000?? Admit Date Admission Date: 01/24/2023 Discharge Date 01/28/23 OB Reason for Admission OB Reason for Admission?? No qualifying data available. [facility] Course IOL course summary: ?Admitted on 01/24 for GDMA2 (Metformin) ?SVE 3 on admission ?- S/p 3 doses 50 mcg PO misoprostol; most recent dose at 22:08 ?SVE 3 at 02:00 ?- Pitocin started at 02:41 ?- 60 cc Zarate placed at 03:30 after 2 mg morphine administered -Zarate out at 08:45 with gentle traction. -SROM with zarate expulsion. ?- Pitocin currently running at 8 mU/min ?? Decision for CS made due to arrest of descent. CS complicated by atony requiring methergine and hemabate as well as Blynch suture, QBL 1058 course uncomplicated On day of discharge: Patient is resting comfortably and feeling well. States her pain is well controlled with PO pain meds. Her lochia is like a medium period. She is ambulating, voiding spontaneously, and tolerating regular diet. Has passed flatus. Bonding with baby appropriately. ?? Denies fevers, chills, headache, dizziness, vision changes, chest pain, shortness of breath, RUQpain, nausea, vomiting, and calf tenderness. ?Patient would like to be discharged today.?Discussed self care, and depression. Patient was counseled on warning signs for calling or returning to care including but not limited to fever of 100.4 orgreater, heavy vaginal bleeding, foul-smelling vaginal discharge, difficulty or burning with urination, nausea and vomiting with inability to tolerate food, pain not controlled by medications, shortness of breath or chest pain, and depression. Counseled to place nothing in the vagina in the next 4-6wks. Patient verbalized understanding. ? Objective/Physical Exam on Day of Discharge Vitals & Measurements T:??97.8?F?? HR:??91??(Peripheral)?? RR:??16?? RR:??16?? RR:??16?? BP:??118/55?? SpO2:??96%?? HT:??158??cm?? WT:??98.0??kg?? BMI:??39.26?? Constitutional:??No acute distress, resting comfortably. Respiratory:??Normal work of breathing. Speaking unlabored without cough Abdomen/GI:??Soft, non-distended, no guarding, no rebound tenderness.??Fundus firm at umbilicus with mild tenderness. Low transverse incision covered with steri strips, appears clean, dry and in tact. Gynecologic:??Minimal lochia. Extremities:??No calf tenderness or edema. Skin:??No rash or jaundice. Neurological/Psychiatric:??Mood and affect congruent and stable. Assessment/Plan/Discharge Diagnosis Assessment:??Patient is a 23yo G1 now P1 POD2 following primary with QBL 1058 mL. Patientmeeting appropriate and post-operative milestones. ?? Gestational diabetes (O24.419):? - 2 hr GTT (??) with BMWH ?? care following delivery (Z39.2):??- Continue routine care - Diet: Regular - Pain control: Ibuprofen & Tylenol, Oxycodone prn - Simethicone, docusate - Encourage ambulation - s/p Zarate, monitor urine output - circ desired for son, pending and desires pre DC - bottle feeding - patch for contracepetion ?? Care: Screening for diabetes Future Appointments Sunday 1:50 PM EDT ?? With: Regina Polanco CNM Where: [facility] IT SUPPORT TECHNICIAN Non [employer] [address] [place] [address]- Status: Pending Sunday 9:20 AM EDT ?? With: Collin KING, Regina Where: [facility] IT SUPPORT TECHNICIAN Non [employer] [address] [place] [address]- Status: Pending Delivery Summary Delivery Summary Maternal Information ??Labor Information ?Labor Onset, Date/Time: ??01/25/23 02:41:00 ??Delivery Information ?Gestational Age at Delivery: ??39W 2D ?Anesthesia OB: ??Epidural ??01/25/23 16:45:18 ?Blood Loss - Quantitative: ??1058 mL ? Baby A ??Delivery Information ?Delivery Type: ??, low transverse ?Reason for : ??Arrest of descent ? Priority: ??Non scheduled ?Incision Time for : ??01/26/23 03:01:00 ?Date, Time of : ??01/26/23 03:13:00 ? Position: ??Supine ?Foot of bed removed: ??No ?Delayed Cord Clamping: ??Yes ?Placenta Delivery Date/Time: ??01/26/23 03:15:00 ??Labor Information ?ROM Date, Time: ??01/25/23 08:30:00 ? monitoring: ??External monitor ?? Information ? Outcome: ??Live ? Weight: ??3.952 kg ? Score 1 minute: ??7 ? Score 5 minute: ??9 ? Score 10 minute: ??9 ?Transferred To: ?? Care area with Family ?Gender: ??Male ? Procedures Performed Section Primary ? Discharge Medications ???Acetaminophen (acetaminophen 325 mg oral tablet)???Acetaminophen/Butalbital/Caffeine (acetaminophen/butalbital/caffeine 325 mg-50 mg-40 mg oral tablet)???Calcium Carbonate (Tums 500 mg Tablet)???Do cusate (docusate sodium 100 mg oral tablet)???Durable Medical Equipment (Scientific Revenuestyle Lite Lancets)???Durable Medical Equipment (Freestyle Lite Monitor)???Durable Medical Equipment (Freestyle Lite Test Strips)???Ethinyl Estradiol-Norelgestromin (Xulane 150 mcg-35 mcg/24 hr transdermal film, extended release)???Famotidine (famotidine 20 mg oral tablet)???Ibuprofen (ibuprofen 800 mg oral tablet)???Metformin (metFORMIN 500 mg oral tablet)???Multivitamin, ( Multivitamins with Vitamin B Complex, Vitamin C, Minerals and L-Methylfolate oral capsule)???Oxycodone (oxyCODONE 5 mg oral tabl et)???Simethicone (simethicone 80 mg oral tablet, chewable) Immunizations during Hospitalization Vaccine Date Status tetanus/diphtheria/pertussis, acel(Tdap) 11/09/2022 Given influenza virus vaccine, inactivated 07/26/2017 Recorded tetanus/diphtheria/pertussis, acel(Tdap) 07/26/2017 Recorded Hepatitis A Pediatric Vaccine 02/09/2016 Recorded Hepatitis A Pediatric Vaccine 02/05/2015 Recorded Infant Feeding Method Feeding Method: Formula (01/26/23 05:00:00) Patient Instructions Discharge: home, Call your the office with any concerns including:?? Heavy vaginal bleeding?? Fever of 100.4 or greater Foul-smelling vaginal discharge Difficulty or burning with urination?? Nausea and vomiting with inability to tolerate food,?? Pain not controlled by your prescribed medications Shortness of breath or chest pain. Swelling of the extremities. ?? General Instructions: - Avoid lifting anything 15 lbs or greater until cleared by doctor. - Stairs are OK but avoid multiple trips/ skipping steps and go slowly. - Walk as often as you are able. - Do not put anything in the vagina. No intercourse, tampons, or douching - Continue your stool softeners (examples: colace/docusate, senna, miralax) - Shower as usual. Avoid tubs/ soaking/ pools. * Raman GRANT, Kalyn Truong: PERFORM Event Display: Discharge/Transfer Note Hospital Authored Date: [id number] Attending Attestation:??I have seen and evaluated this patient. ??I have discussed the case and itsmanagement with the resident and agree with the findings and plan as documented in the resident???snote. ?? Kalyn Camargo MD [facility] Urogynecology Patient Care team information Care Team Personnel Name: Kathya Tabor MD Position: [facility] General Pediatrics MD Member Role: PCP Address: Address: [address] [place] [address]- Name: Madi Sauer MD Position: [facility] HELP DESK ANALYST MD Member Role: Lifetime HELP DESK ANALYST Physician Address: Address: [address] [place] [address] [facility] [employer] [place] [address]- Name: Keyla Bartlett RN Position: [facility] OB RN Member Role: Patient Care Provider Care Team Related Persons Name: CARLOS CATES Address: AMERCN Address: home [address] [place] [address] [place] Name: MALENA KELSEY Address: home [address] [place] [address] Name: SUSHILA VENTURA Address: home [address] [place] [address]
--- OUTSIDE RECORDS SUMMARY | 2023-04-27 13:35 | XMS_ITS | Continuity of Care Document ---
Author Name Unknown Organization [facility] Channing Linda nInv[facility] Address [address] [facility], [address] [place] [address]- Care Team Providers Care Back End Web Developer Name Role Phone Kathya Tabor MD Primary Care Physician Encounter [facility] [place] Date(s): 03/15/23 - 04/14/23 [facility] [address] [facility], [address] [place], [place] [address] Allergies, Adverse Reactions, Alerts Substance Reaction Severity [...] Replace Required Details, Route to Pharmacy Electronically, [id number], 158, cm, 03/13/23 9:25:00 EDT, Mee... Start Date: 03/16/23 Status: Ordered Xulane 150 mcg-35 mcg/24 hr transdermal film, extended release 1 patch, Topically, Every week, Wait until 6 weeks after delivery before starting this medication. Apply a new patch weekly for 3 weeks, then remove patch for 1 week., # 12 each, 3 Refills, Maintenance, 01/27/23 11:30:00 EDT, [facility]/pharmacy #[id number], Parti... Start Date: 01/27/23 Status: Ordered [...] Team Personnel Name: Kathya Tabor MD Position: [facility] General Pediatrics MD Member Role: PCP Address: Address: [address] [place] [address]- Name: Madi Sauer MD Position: [facility] BAGGING MACHINE OPERATOR MD Member Role: Lifetime BAGGING MACHINE OPERATOR Physician Address: Address: [address] [place] [address] [facility] [place] [address]- Care Team Related Persons Name: MALENA KELSEY Address: home [address] [place] [address] Name: MADDIE VENTURA Address: AMERCN Address: home [address] [place] [address] [place] Name: SUSHILA VENTURA Address: home [address] [place] [address]
--- OUTSIDE RECORDS SUMMARY | 2023-04-27 13:35 | XMS_ITS | Continuity of Care Document ---
Author Name Unknown Organization [facility] Address [address] [place] [address]- Care Team Providers Care Swatcher Name Role Phone Kathya Tabor MD Primary Care Physician [phone] [place] [facility] [place] Date(s): 02/20/23 - 03/22/[address] [address] Allergies, Adverse Reactions, Alerts Substance Reaction [...] 4 Refills, Maintenance, 02/20/23 16:27:00 EDT, Tablet, [facility]/pharmacy #[id number], Partial fill upon patient request if the prescription is for a schedule II opioid drug., 158, cm, 02/08/23 11:19:00 EDT, Height,... Start Date: 02/20/23 Status: Ordered valACYclovir 500 mg oral tablet See Instructions, TAKE 1 TABLET BY MOUTH TWICE A DAY FOR 3 DAYS, # 180 tablet, Refills 0, Maintenance, 03/16/23 4:44:00 EDT, Instructions Replace Required Details, Route to Pharmacy Electronically, [id number], 158, cm, 03/13/23 9:25:00 EDT, Mee... Start Date: 03/16/23 Status: Ordered Xulane 150 mcg-35 mcg/24 hr transdermal film, extended release 1 patch, Topically, Every week, Wait until 6 weeks after delivery before starting this medication. Apply a new patch weekly for 3 weeks, then remove patch for 1 week., # 12 each, 3 Refills, Maintenance, 01/27/23 11:30:00 EDT, [facility]/pharmacy #[id number], Parti... Start Date: 01/27/23 Status: Ordered [...] Team Personnel Name: Kathya Tabor MD Position: [facility] General Pediatrics MD Member Role: PCP Address: Address: [address] [place] [address]- Name: Cristiane GRANT, Madi Ayala Position: [facility] PROCEDURE RN Member Role: Lifetime PROCEDURE RN Physician Address: Address: [address] [place] [address]'s [facility] [place] [address]- Care Team Related Persons Name: MALENA KELSEY Address: home [address] [place] [address] Name: MADDIE VENTURA Address: AMERCN Address: home [address] [place] [address] [place] Name: SUSHILA VENTURA Address: home [address] [place] [address]
--- OUTSIDE RECORDS SUMMARY | 2023-04-27 13:35 | XMS_ITS | Continuity of Care Document ---
Author Name Unknown Organization [facility] ter Address [address] [place] [address]- Care Team Providers Care Commutator V Ring Assembler Name Role Phone Kathya Tabor MD Primary Care Physician Encounter [facility] Date(s): 11/14/21 - 01/27/[address] [address] Attending Physician: Sofia Valverde MD Admitting Physician: Sofia Valverde MD Referring Physician: Sofia Valverde MD Allergies, Adverse Reactions, Alerts Substance Reaction Severity Status amoxicillin severe hives,trouble breathing Active penicillin severe hives,trouble breathing Active Medications cabergoline 0.5 mg oral tablet 0.5 tablet = 0.25 mg, By Mouth, Every Sunday and Sunday, # 13 tablet, 3 Refills, Maintenance, 11/08/21 16:59:00 EDT, [facility]/pharmacy #[id number], Partial fill upon patient request if the prescription is for a schedule II opioid drug., 157.48, cm, 09/01/21 10:... Start Date: 11/08/21 Status: Ordered Multivitamins with Vitamin B Complex, Vitamin C, Minerals and L- Methylfolate oral capsule 1 capsule, By Mouth, Daily in AM, 0 Refills, Maintenance, 08/11/20 15:23:00 EST, Capsule, Partial fill upon patient request if the prescription is for a schedule II opioid drug. Start Date: 08/11/20 Status: Ordered Problem List Condition Effective Dates Status Health Status Inform ant Obese class II(Confirmed) Active Social History Social History Type Response Smoking Status Never (less than 100 in lifetime);Never entered on: 08/23/21 Sex
--- OUTSIDE RECORDS SUMMARY | 2023-04-27 13:35 | XMS_ITS | Continuity of Care Document ---
Author Name Unknown Organization [facility] e Medicine Address Unknown Care Team Providers Care Raw Silk Grader Name Role Phone Kathya Tabor MD Primary Care Physician [phone] [place] [facility] [place] 10[place]07[place]21 - 11/06/21 [facility] Reproductive Medicine Allergies, Adverse Reactions, Alerts Substance Reaction Severity Status amoxicillin severe hives,trouble breathing Active penicillin severe hives,trouble breathing Active Medications Cranberry oral tablet 1 tablet, By Mouth, Daily in AM, 0 Refills, Maintenance, 08/11/20 15:24:00 EST, Partial fill upon patient request if the prescription is for a schedule II opioid drug. Start Date: 08/11/20 Status: Ordered doxycycline hyclate 100 mg oral capsule 1 capsule = 100 mg, By Mouth, 2 times a day, for 5 days, Start 2 days before HSG and continue for 5days total. You may take with food (breakfast and dinner) to minimize abdominal discomfort., # 10 capsule, 0 Refills, Acute 11/08/21 10:55:00 EDT, 04... Start Date: 11/03/21 Stop Date: 11/08/21 Status: Ordered Multivitamins with Vitamin B Complex, Vitamin C, Minerals and L- Methylfolate oral capsule 1 capsule, By Mouth, Daily in AM, 0 Refills, Maintenance, 08/11/20 15:23:00 EST, Capsule, Partial fill upon patient request if the prescription is for a schedule II opioid drug. Start Date: 08/11/20 Status: Ordered Social History Social History Type Response Smoking Status Never (less than 100 in lifetime);Never entered on: 08/23/21 Sex
--- OUTSIDE RECORDS SUMMARY | 2023-04-27 13:35 | XMS_ITS | Continuity of Care Document ---
Author Name Unknown Organization [facility] Address [address] [facility], 4t h [address] [place] [address]- Care Team Providers Care Welding Specialist Name Role Phone Kathya Tabor MD Primary Care Physician [place] [facility] [place] Date(s): 05/22/22 - 06/21/22 [facility] Reproductive Medicine [address] [facility], 4th Floor [address] [place] [address] Allergies, Adverse Reactions, Alerts Substance Reaction Severity Status amoxicillin severe hives,trouble breathing Active penicillin severe hives,trouble breathing Active Medications cabergoline 0.5 mg oral tablet 0.5 tablet = 0.25 mg, By Mouth, Every Sunday and Sunday, # 13 tablet, 3 Refills, Maintenance, 05/10/22 15:59:00 EDT, [facility]/pharmacy #[id number], Partial fill upon patient request [...] atus Informant Obese class II Confirmed Active Social History Social History Type Response Smoking Status Never (less than 100 in lifetime) entered on: 06/19/22 Sex Patient Care team information Care Team Personnel Name: Kathya Tabor MD Position: [facility] General Pediatrics MD Member Role: PCP Address: Address: [address] [place] [address] Care Team Related Persons Name: SARAH KELSEYMY Address: [address] [address] Name: SUSHILA VENTURA Address: [place] [address]
--- OUTSIDE RECORDS SUMMARY | 2023-04-27 13:35 | XMS_ITS | Continuity of Care Document ---
Author Name Unknown Organization [facility] e Medicine Address Unknown Care Team Providers Care Automatic Glove Turner And Former Name Role Phone Kathya Tabor MD Primary Care Physician En[place] [facility] [place] Date(s): 12/23/21 - 01/22/22 [facility] Reproductive Medicine Attending Physician: Beckie Gregory Admitting Physician: Beckie Gregory Referring Physician: Beckie Gregory Allergies, Adverse Reactions, Alerts Substance Reaction Severity Status amoxicillin severe hives,trouble breathing Active penicillin severe hives,trouble breathing Active Medications cabergoline 0.5 mg oral tablet 0.5 tablet = 0.25 mg, By Mouth, Every Sunday and Sunday, # 13 tablet, 3 Refills, Maintenance, 11/08/21 16:59:00 EDT, [facility]/pharmacy #[id number], Partial fill upon patient request if [...]
--- OUTSIDE RECORDS SUMMARY | 2023-04-27 13:35 | XMS_ITS | Continuity of Care Document ---
Author Name Unknown Organization [facility] Linda [facility] Address [address] [facility], 4[address] [place] [address]- Care Team Providers Care Electrical Automation Engineer Name Role Phone Kathya Tabor MD Primary Care Physician [id number] Date[facility]s): 06/19/22 - 06/26/22 [facility] BadilloVerim[facility] [address] [facility], [address] [place] [address]- Attending Physician: Nathalie Kearney MD Referring Physician: Kathya Tabor MD Allergies, Adverse Reactions, Alerts Substance Reaction Severity Status amoxicillin severe hives,trouble breathing Active penicillin severe hives,trouble breathing Active Medications cabergoline 0.5 mg oral tablet 0.5 tablet = 0.25 mg, By Mouth, Every Sunday and Sunday, # 13 tablet, 3 Refills, Maintenance, 05/10/22 15:59:00 EDT, [facility]/pharmacy #[id number], Partial fill upon patient request if [...] oldest [Reference Range]: 1 Height 157.48 cm (06/19/22 8:50 AM) Social History Social History Type Response Smoking Status Never (less than 100 in lifetime) entered on: 06/19/22 Sex Patient Care team information Care Team Personnel Name: Kathya Tabor MD Position: [facility] General Pediatrics MD Member Role: PCP Address: Address: [address] [place] [address]- Care Team Related Persons Name: LOW MALENA Address: home [address] [place] [place] [phone] Name: SUSHILA VENTURA Address: [place] [address]
--- OUTSIDE RECORDS SUMMARY | 2023-04-27 13:35 | XMS_ITS | Continuity of Care Document ---
Author Name Unknown Organization [facility] e [facility] Address [address] [facility], 4t h [address] [place] [address]- Care Team Providers Care Emergency Service Restorer Name Role Phone Kathya Tabor MD Primary Care Physician [place] [facility] [place] 05/09/22 - 06/08/22 [facility] Reproductive Medicine [address] [facility], 4th Floor [address] [place] [address] Allergies, Adverse Reactions, Alerts Substance Reaction Severity Status amoxicillin severe hives,trouble breathing Active penicillin severe hives,trouble breathing Active Medications cabergoline 0.5 mg oral tablet 0.5 tablet = 0.25 mg, By Mouth, Every Sunday and Sunday, # 13 tablet, 3 Refills, Maintenance, 05/10/22 15:59:00 EDT, [facility]/pharmacy #[id number], Partial fill upon patient request if [...] Team Personnel Name: Kathya Tabor MD Position: S General Pediatrics MD Member Role: PCP Address: Address: [address] [place] [id number] Care Team Related Persons Name: SARAH KELSEYMY Address: home [address] [place] [address] Name: SUSHILA VENTURA Address: [address] [address]
--- OUTSIDE RECORDS SUMMARY | 2023-04-27 13:35 | XMS_ITS | Continuity of Care Document ---
Author Name Unknown Organization [facility] Address [address] [place] [address]- Care Team Providers Care Cellophaner Name Role Phone Kathya Tabor MD Primary Care Physician [phone] [facility] [place] Date(s): 02/26/23 - 04/10/[address] [address] Attending Physician: Kierra Maldonado CNM Admitting Physician: Kierra Maldonado CNM Referring Physician: Kierra Maldonado CNM Allergies, [...] Refills, Maintenance, 02/20/23 16:27:00 EDT, Tablet, [id number], Partial fill upon patient request if the prescription is for a schedule II opioid drug., 158, cm, 02/08/23 11:19:00 EDT, Height,... Start Date: 02/20/23 Status: Ordered valACYclovir 500 mg oral tablet See Instructions, TAKE 1 TABLET BY MOUTH TWICE A DAY FOR 3 DAYS, # 180 tablet, Refills 0, Maintenance, 03/16/23 4:44:00 EDT, Instructions Replace Required Details, Route to Pharmacy Electronically, [id number], 158, cm, 03/13/23 9:25:00 EDT, Mee... Start Date: 03/16/23 Status: Ordered Xulane 150 mcg-35 mcg/24 hr transdermal film, extended release 1 patch, Topically, Every week, Wait until 6 weeks after delivery before starting this medication. Apply a new patch weekly for 3 weeks, then remove patch for 1 week., # 12 each, 3 Refills, Maintenance, 01/27/23 11:30:00 EDT, [facility]/pharmacy #[id number], Parti... Start Date: 01/27/23 Status: [...] Team Personnel Name: Kathya Tabor MD Position: [facility] General Pediatrics MD Member Role: PCP Address: Address: [address] [place] [address]- Name: Madi Sauer MD Position: [facility] CHEF MD Member Role: Lifetime CHEF Physician Address: Address: [address] [place] [address] Women's [place] [address]- Care Team Related Persons Name: MALENA KELSEY Address: home [address] [place] [address] Name: MADDIE VENTURA Address: AMERCN Address: home [address] [place] [address] [place] Name: SUSHILA VENTURA Address: home [address] [place] [address]
--- OUTSIDE RECORDS SUMMARY | 2023-04-27 13:35 | XMS_ITS | Continuity of Care Document ---
Author Name Unknown Organization [facility] Address [address] [place] [address]- Care Team Providers Care Inspector Weights And Measures Name Role Phone Kathya Tabor MD Primary Care Physician En[place] [facility] [place] Date(s): 01/17/23 - 02/16/23 [facility] [address] [address] Allergies, Adverse Reactions, Alerts Substance Reaction Severity Status amoxicillin severe hives,trouble breathing Active penicillin severe hives,trouble breathing Active Immunizations Given and Recorded Vaccine Date Status Refusal Reason tetanus/diphtheria/pertussis, acel(Tdap) 11/09/22 Given tetanus/diphtheria/pertussis, acel(Tdap) 07/26/17 Recorded influenza virus vaccine, inactivated 07/26/17 Eliel rded Hepatitis A Pediatric Vaccine 02/09/16 Recorded Hepatitis A Pediatric Vaccine 02/05/15 Recorded Medications hydrocortisone 1% topical cream 1 application, Topically, [...] a schedule II opioid drug. Start Date: 1/27/21 Status: Ordered sertraline 25 mg oral tablet 1 tablet = 25 mg, By Mouth, Daily, # 30 tablet, 0 Refills, Maintenance, 02/02/23 15:46:00 EDT, Tablet, [id number], Partial fill upon [...] Team Personnel Name: Kathya Tabor MD Position: [facility] General Pediatrics MD Member Role: PCP Address: Address: [address] [place] [address]- Name: Cristiane GRANT, Madi Ayala Position: [facility] RESOURCE SPECIALIST TEACHER MD Member Role: Lifetime RESOURCE SPECIALIST TEACHER Physician Address: Address: [address] [place] [address] Women's Health [place] [address]- Care Team Related Persons Name: MALENA KELSEY Address: home [address] [place], [place] Name: MADDIE VENTURA Address: AMERCN Address: home [address] [place] [address] [place] Name: SUSHILA VENTURA Address: home [address] [place], [place]
--- OUTSIDE RECORDS SUMMARY | 2023-04-27 13:35 | XMS_ITS | Continuity of Care Document ---
Author Name Unknown Organization [facility] ter Address [address] [place] [address]- Care Team Providers Care Airport Baggage Screener Name Role Phone Leander GRANT, Kathya Oneill Primary Care Physician [phone] Encounter [facility] Date(s): 07/18/19 - 07/18/[address] [address]- [facility] Attending Physician: Janessa GRANT , Namita Das
--- OUTSIDE RECORDS SUMMARY | 2023-04-27 13:35 | XMS_ITS | Continuity of Care Document ---
Author Name Unknown Organization [facility] Address [address] [address] Care Team Providers Care Tubing Mill Setter Name Role Phone Leander GRANT, Kathya Oneill Primary Care Physician [phone] Encounter [facility] [place] Date(s): 11/03/22 - 03/03/23 [facility] [address] [address]- Attending Physician: Not on Staff, Attending MD Admitting Physician: Khadar Caldwell MD Referring Physician: Farnaz Sanchez CNM Allergies, Adverse Reactions, Alerts Substance Reaction [...] EDT, Height,... Start Date: 02/20/23 Status: Ordered Xulane 150 mcg-35 mcg/24 hr [...] Team Personnel Name: Kathya Tabor MD Position: [facility] General Pediatrics MD Member Role: PCP Address: Address: [address] [place] [address]- Name: Cristiane GRANT, Madi Ayala Position: [facility] LEARNING AND DEVELOPMENT INTERN MD Member Role: Lifetime LEARNING AND DEVELOPMENT INTERN Physician Address: Address: [address] [place] [address] Women[facility] Health [place] [address]- Care Team Related Persons Name: MALENA KELSEY Address: home [address] [place] [phone] Name: MADDIE VENTURA Address: AMERCN Address: home [address] [place] [address] [place] Name: SUSHILA VENTURA Address: home [address] [place] [address]
--- OUTSIDE RECORDS SUMMARY | 2023-04-27 13:35 | XMS_ITS | Continuity of Care Document ---
Author Name Unknown Organization [facility] Address [address] [facility], 4t [place] [address]- Care Team Providers Care Laborer Egg Producing Farm Name Role Phone Kathya Tabor MD Primary Care Physician [id number] 06/30/22 - 07/30/22 [facility] [address] [facility], 4th Floor [place], [place] [address] Allergies, Adverse Reactions, Alerts Substance Reaction Severity Status amoxicillin severe hives,trouble breathing Active penicillin severe hives,trouble breathing Active Immunizations Given and Recorded Vaccine Date Status Refusal Reason influenza virus vaccine, inactivated 07/26/17 Eliel rded tetanus/diphtheria/pertussis, acel(Tdap) 07/26/17 Recorded Hepatitis A Pediatric Vaccine 02/09/16 Recorded Hepatitis [...] Status Health St [facility] Informant Obese class I Confirmed Active Social History Social History Type Response Smoking Status Never (less than 100 in lifetime) entered on: 06/19/22 Sex Patient Care team information Care Team Personnel Name: Kathya Tabor MD Position: [facility] General Pediatrics MD Member Role: PCP Address: Address: [address] [place] [address]- Care Team Related Persons Name: YANIRAMALENA BRIZUELA Address: home [address] [place] [address] Name: SUSHILA VENTURA Address: home [address] [place] [address]
--- OUTSIDE RECORDS SUMMARY | 2023-04-27 13:35 | XMS_ITS | Continuity of Care Document ---
Author Name Unknown Organization [facility] Address [address] [address]- Care Team Providers Care Engineering Program Analyst Name Role Phone Kathya Tabor MD Primary Care Physician [phone] [place] [facility] [place]/17/[place] - 12/17/[address] [address] Allergies, Adverse Reactions, Alerts Substance Reaction [...] 1 Refills, Maintenance, 10/02/22 11:27:00 EDT, Tablet, [facility]/pharmacy #[id number], Partial fill upon patient request if... Start Date: 10/02/22 Status: Ordered famotidine 20 mg oral tablet See Instructions, TAKE 1 TABLET BY MOUTH TWICE A DAY, # 60 tablet, Refills 1, Maintenance, 12/12/2310:42:00 EDT, Instructions Replace Required Details, Route to Pharmacy Electronically, [facility] [id number], 157.48, cm, 12/07/22 10:20:00 EDT, Height, 96.1... [...] Team Personnel Name: Kathya Tabor MD Position: [facility] General Pediatrics MD Member Role: PCP Address: Address: [address] [place] [address]- [place] Care Team Related Persons Name: MALENA KELSEY Address: home [address] [place] [address] Name: ENGLISH SUSHLIA Address: home [address] [place] [address]
--- OUTSIDE RECORDS SUMMARY | 2023-04-27 13:35 | XMS_ITS | Continuity of Care Document ---
Author Name Unknown Organization [facility] Address [address] [place] [address]- Care Team Providers Care Drum Drier Name Role Phone aKthya Tabor MD Primary Care Physician [phone] Encounter [facility] Date(s): 03/14/23 - 04/13/23 [facility] [address] [place] [id number] Allergies, Adverse Reactions, Alerts Substance Reaction [...] Replace Required Details, Route to Pharmacy Electronically, [id number], 158, cm, 03/13/23 9:25:00 EDT, Mee... Start Date: 03/16/23 Status: Ordered Xulane 150 mcg-35 mcg/24 hr transdermal film, extended release 1 patch, Topically, Every week, Wait until 6 weeks after delivery before starting this medication. Apply a new patch weekly for 3 weeks, then remove patch for 1 week., # 12 each, 3 Refills, Maintenance, 01/27/23 11:30:00 EDT, [facility]/pharmacy #[id number], Parti... Start Date: 01/27/23 Status: [...] Team Personnel Name: Kathya Tabor MD Position: [facility] General Pediatrics MD Member Role: PCP Address: Address: [address] [place] [address]- Name: Madi Sauer MD Position: [facility] ASSOCIATE GENETICS PROFESSOR MD Member Role: Lifetime ASSOCIATE GENETICS PROFESSOR Physician Address: Address: [address] [place] [address] Women's [place] [address]- Care Team Related Persons Name: MALENA KELSEY Address: home [address] [place] [address] Name: MADDIE VENTURA Address: AMERCN Address: home [address] [place] [address] [place] Name: SUSHILA VENTURA Address: home [address] [place] [address]
--- OUTSIDE RECORDS SUMMARY | 2023-04-27 13:35 | XMS_ITS | Continuity of Care Document ---
Author Name Unknown Organization [facility] Address [address] [place] [address]- Care Team Providers Care Lithographer Helper Name Role Phone Kathya Tabor MD Primary Care Physician Encounter [facility] Date(s): 02/07/23 - 03/09/23 [facility] [address] [place] [id number] Allergies, Adverse Reactions, Alerts Substance Reaction [...] Personnel Name: Kathya Tabor MD Position: [facility] General Pediatrics MD Member Role: PCP Address: Address: [address] [place] [address]- Name: Cristiane GRANT, Madi Ayala Position: [facility] PRESS FEEDER MD Member Role: Lifetime PRESS FEEDER Physician Address: Address: [address] [place] [address] Women's [place] [address]- Care Team Related Persons Name: MALENA KELSEY Address: home [address] [place] [address] Name: MADDIE VENTURA Address: AMERCN Address: home [address] [place] [address] [place] Name: SUSHILA VENTURA Address: home [address] [place] [address]
--- OUTSIDE RECORDS SUMMARY | 2023-04-27 13:35 | XMS_ITS | Continuity of Care Document ---
Author Name Unknown Organization [facility] Address [address] [address]- Care Team Providers Care Senior Support Engineer Name Role Phone Kathya Tabor MD Primary Care Physician En[place] [facility] Date(s): 01/15/23 - 02/14/[address] [id number] Allergies, Adverse Reactions, Alerts Substance Reaction [...] 0 Refills, Maintenance, 02/02/23 15:46:00 EDT, Tablet, [facility]/pharmacy #[id number], Partial fill upon patient request [...] Team Personnel Name: Kathya Tabor MD Position: [facility] General Pediatrics MD Member Role: PCP Address: Address: [address] [place] [address]- Name: Madi Sauer MD Position: [facility] CLINICAL STAFF RN MD Member Role: Lifetime CLINICAL STAFF RN Physician Address: Address: [address] [facility] [place] [address]- Care Team Related Persons Name: MALENA KELSEY Address: home [address] [place] [address] Name: MADDIE VENTURA Address: AMERCN Address: home [address] [place] [address] Name: SUSHILA VENTURA Address: home [address] [place] [address]
--- OUTSIDE RECORDS SUMMARY | 2023-04-27 13:35 | XMS_ITS | Continuity of Care Document ---
Author Name Unknown Organization [facility] Address [address] [facility], 4t [address] [place] [address]- Care Team Providers Care Upper Extremity Surgeon Name Role Phone Kathya Tabor MD Primary Care Physician Encounter [facility] Date(s): 06/07/22 - 06/14/22 [facility] Reproductive [facility] [address] [facility], 4th Floor [address] [place] [id number] Attending Physician: Not on Staff, Attending MD Referring Physician: Genevieve Paulino MD Allergies, Adverse Reactions, Alerts Substance Reaction Severity Status amoxicillin severe hives,trouble breathing Active penicillin severe hives,trouble breathing Active Medications cabergoline 0.5 mg oral tablet 0.5 tablet = 0.25 mg, By Mouth, Every Sunday and Sunday, # 13 tablet, 3 Refills, Maintenance, 05/10/22 15:59:00 EDT, [facility]/pharmacy #[id number], Partial fill upon patient request if [...] 100 in lifetime);Never entered on: 08/23/21 Sex Note * Event Display: MARIAELENA OB Transvaginal * Event Display: MARIAELENA OB Transvaginal Authored Date: [id number] OBSTETRICS REPORT PATIENT INFO: CMRN: [id number] BMRN: [id number] : [birth year] (22 yrs)(F) Name: CARLOS CATES Visit Date: 06/07/2022 09:23 am PERFORMED BY: Performed By: Gladys Palomares RDMS Attending: Genevieve Paulino MD Referred By: Genevieve Paulino MD Location: RE - Reproductive Medicine INDICATIONS: Establish gestational age, ultrasound Z36.89 EVALUATION: Num Of Fetuses: 1 Gest. Sac: Seen in the intrauterine cavity Yolk Sac: Visualized Pole: Visualized Heart Rate(bpm): 113 Cardiac Activity: Present BIOMETRY: CRL: 5 mm G.Age: 6w 1d LAYLA: 01/30/23 GESTATIONAL AGE: LMP: 6w 0d Date: 04/26/22 LAYLA: 01/31/23 Best: 6w 0d Det. By: LMP (04/26/22) LAYLA: 01/31/23 CERVIX UTERUS ADNEXA: Cervix Appears closed Left Ovary Corpus luteum. Right Ovary Cystic structure. Comment Vaginal scanning was done. COMMENTS: Single viable IUP at 6 weeks and 1 day. IMPRESSION: Single viable IUP at 6 1/7 weeks EGA. Genevieve Paulino MD Electronically Signed Final Report 06/07/2022 10:19 am * Event Display: MARIAELENA OB Transvaginal Authored Date: [id number] Please click on pdf link to open report Patient Care team information Care Team Personnel Name: Leander GRANT, Kathya Oneill Position: [facility] General Pediatrics MD Member Role: PCP Address: Address: [address] [place] [address]- Care Team Related Persons Name: MALENA KELSEY Address: home [address] [place] [address] Name: SUSHILA VENTURA Address: home [address] [place] [address]
--- OUTSIDE RECORDS SUMMARY | 2023-04-27 13:35 | XMS_ITS | Continuity of Care Document ---
Author Name Unknown Organization [facility] Address [address] [address]- Care Team Providers Care Environmental Auditor Name Role Phone Kathya Tabor MD Primary Care Physician [place] [facility] [place] 09/21/22 - 10/21/22 [facility] [address] [place] [id number] Allergies, Adverse Reactions, Alerts Substance [...] 1 Refills, Maintenance, 10/02/22 11:27:00 EDT, Tablet, [id number], Partial fill upon patient request if... Start Date: 10/02/22 Status: Ordered Multivitamins with Vitamin B Complex, [...] Team Personnel Name: Kathya Tabor MD Position: [facility] General Pediatrics MD Member Role: PCP Address: Address: [address] [place] [address]- Care Team Related Persons Name: YANIRATANNAJOHNYMALENA Lane Address: home [address] [place] [address] Name: SUSHILA VENTURA Address: home [address] [place] [address]
--- OUTSIDE RECORDS SUMMARY | 2023-04-27 13:36 | XMS_ITS | Continuity of Care Document ---
Author Name Unknown Organization [facility] Address [address] [facility], 4t [address] [place] [address]- Care Team Providers Care Director Of Programming Name Role Phone Kathya Tabor MD Primary Care Physician Encounter [facility] Date(s): 05/10/22 - 06/09/22 [facility] Reproductive Medicine [address] [facility], 4th [address] [place] [address] Allergies, Adverse Reactions, Alerts Substance Reaction Severity Status amoxicillin severe hives,trouble breathing Active penicillin severe hives,trouble breathing Active Medications cabergoline 0.5 mg oral tablet 0.5 tablet = 0.25 mg, By Mouth, Every Sunday and Sunday, # 13 tablet, 3 Refills, Maintenance, 05/10/22 15:59:00 EDT, [facility]/pharmacy #[id number], Partial fill upon patient [...] Pediatrics MD Member Role: PCP Address: Address: [address] [place] [address] Care Team Related Persons Name: SARAH KELSEYMY Address: [address] [address] Name: SUSHILA VENTURA Address: [address] [address]
--- OUTSIDE RECORDS SUMMARY | 2023-04-27 13:36 | XMS_ITS | Continuity of Care Document ---
Author Name Unknown Organization [facility] ter Address [address] [place] [address]- Care Team Providers Care Test Engineer Nuclear Equipment Name Role Phone Kathya Tabor MD Primary Care Physician [phone] Encounter [facility] Date(s): 08/19/20 - 08/19/[address] [address]- Discharge Disposition: A-D/C Home Attending Physician: Trevor Puente MD Admitting Physician: Trevor Puente MD Referring Physician: Trevor Puente MD Allergies, Adverse Reactions, Alerts Substance Reaction Severity Status amoxicillin severe hives,trouble breathing Active penicillin severe hives,trouble breathing Active Medications Cranberry oral tablet 1 tablet, By Mouth, Daily in AM, 0 Refills, Maintenance, 08/11/20 15:24:00 EST, Partial fill upon patient request if the prescription is for a schedule II opioid drug. Start Date: 08/11/20 Status: Ordered FENTanyl Inj 25 mcg, Injection, IV Push Slowly, Every 5 minutes for 8 doses/times, in PACU ONLY, Hold for: RR less than 8 or over-sedation, PRN for Pain , Moderate, Repeat until Pain Score is less than or equal to 2, Routine, 08/19/20 10:42:00 EST, Stop date Limit... Start Date: 08/19/20 Stop Date: 08/19/20 Status: Discontinued OxyCODONE IR Tablet 5 mg, Tablet, By Mouth, Every 4 hours, in PACU ONLY, if patient can tolerate PO, PRN for Pain , Mild, Routine, 08/19/20 10:42:00 EST Start Date: 08/19/20 Stop Date: 08/19/20 Status: Discontinued Multivitamins with Vitamin B Complex, Vitamin C, Minerals and L- Methylfolate oral capsule 1 capsule, By Mouth, Daily in AM, 0 Refills, Maintenance, 08/11/20 15:23:00 EST, Capsule, Partial fill upon patient request if the prescription is for a schedule II opioid drug. Start Date: 08/11/20 Status: Ordered Vital Signs Most recent to oldest [Reference Range]: 1 2 3 Height 157.48 cm (08/19/20 9:44 AM) 157.48 cm (08/11/20 3:20 PM) Weight 92.5 kg (08/19/20 9:44 AM) 86.36 kg (08/11/20 3:20 PM) Oxygen Saturation [94-100 %] 99 % (08/19/20 11:45 AM) 98 % (08/19/20 11:30 AM) 100 % (08/19/20 11:15 AM) Pulse Rate [55-90 bpm] 99 bpm *H* (08/19/20 9:44 AM) Body Mass Index [18.5-24.99] 37.3 *>HHI* (08/19/20 9:44 AM) 34.82 *>HHI* (08/11/20 3:20 PM) Blood Pressure [90-138/55-84 mm Hg] 120/64mm Hg (08/19/20 11:45 AM) 117/79mm Hg (08/19/20 11:30 AM) 118/74mm Hg (08/19/20 11:15 AM) Respiratory Rate [16-30 br/min] 20 br/min (08/19/20 11:47 AM) 20 br/min (08/19/20 11:30 AM) 20 br/min (08/19/20 11:26 AM) Temperature [96.8-100.4 DegF] 97.7 DegF (08/19/20 11:45 AM) 98.6 DegF (08/19/20 11:00 AM) 98.5 DegF (08/19/20 9:44 AM) Liters per Minute 4 L/min (08/19/20 11:15 AM) 4 L/min (08/19/20 11:00 AM) Mode of Delivery (Oxygen) Room air (08/19/20 12:15 PM) Room air (08/19/20 11:45 AM) Room air (08/19/20 11:30 AM) Blood pressure sites Arm, right (08/19/20 11:45 AM) Arm, right (08/19/20 11:30 AM) Arm, right (08/19/20 11:15 AM) Temperature Route Temporal (08/19/20 11:00 AM) Temporal (08/19/20 9:44 AM) Dry Weight 92.5 kg (08/19/20 9:44 AM) 86.36 kg (08/11/20 3:20 PM) Weight Obtained Via Standing scale (08/19/20 9:44 AM) Patient/family stated (08/11/20 3:20 PM) Dry Weight Obtained Via Standing scale (08/19/20 9:44 AM) Patient/family stated (08/11/20 3:20 PM)
--- OUTSIDE RECORDS SUMMARY | 2023-04-27 13:36 | XMS_ITS | Continuity of Care Document ---
Author Name Unknown Organization [facility] Address [address] [place] [address]- Care Team Providers Care Chemistry Faculty Member Name Role Phone Kathya Tabor MD Primary Care Physician [phone] [place] [facility] Date(s): 10/02/22 - 11/01/22 [facility] [address] [address] Allergies, Adverse Reactions, Alerts Substance Reaction [...] List Condition Confirmation Course Effective Dates Status [facility] atus Informant Obese class II Confirmed Active Social History Social History Type Response Smoking Status Never (less than 100 in lifetime) entered on: 06/19/22 Sex Patient Care team information Care Team Personnel Name: Kathya Tabor MD Position: [facility] General Pediatrics MD Member Role: PCP Address: Address: [address] [place] [address]- Care Team Related Persons Name: MALENA KELSEY Address: home [address] [place] [address] Name: SUSHILA VENTURA Address: home [address] [place] [address]
--- OUTSIDE RECORDS SUMMARY | 2023-04-27 13:36 | XMS_ITS | Continuity of Care Document ---
Author Name Unknown Organization [facility] ter Address [address] [place] [address]- Care Team Providers Care Furniture Associate Name Role Phone Tyrone Baptiste MD, Blanche Primary Care Physician Encounter [facility] Date(s): 07/05/22 - 07/05/[address] [address]- Discharge Disposition: A-D/C Walkout Attending Physician: Not on Staff, Attending MD Admitting Physician: Not on Staff, Admitting MD Referring Physician: Not on Staff, Referring MD Allergies, Adverse Reactions, Alerts Substance Reaction Severity Status amoxicillin severe hives,trouble breathing Active penicillin severe hives,trouble breathing Active Medications cabergoline 0.5 mg oral tablet 0.5 tablet = 0.25 mg, By Mouth, Every Sunday and Sunday, # 13 tablet, 3 Refills, Maintenance, 05/10/22 15:59:00 EDT, [facility]/pharmacy #[id number], Partial fill upon patient [...] atus Informant Obese class II Confirmed Active Results Radiology Reports * Exam Date Time Procedure Performing Provider Status 07/05/22 1:28 PM Chest 2 Views Frontal and Lat Gato Lujan (Verified) Notes: (Chest 2 Views Frontal and Lat) Reason For Exam: Shortness of Breath, Fever;Other: RESULT: Chest 2 Views Frontal and Lat Examination: Chest performed on 07/05/2022. History: Cough. Findings: Frontal and lateral views of the chest are submitted without comparison. The cardiac and mediastinal silhouettes are within normal limits. The lungs are clear. Minimal scoliosis within the spine is present. Impression: There is no acute cardiopulmonary disease. WSN: [id number] Ordering Physician: Woody Mccloud Dictated By: Amy Cordova MD Dictated Date/Time: 07/05/22 1:31 pm Reviewed By: Amy Cordova MD Signed By: mAy Cordova MD Signed Date/Time: 07/05/22 1:31 pm Transcribed By: MARCIA Transcribed Date/Time: 07/05/22 1:31 pm Vital Signs Most recent to oldest [Reference Range]: 1 2 3 Oxygen Saturation [94-100 %] 99 % (07/05/22 11:33 AM) 98 % (07/05/22 9:04 AM) 97 % (07/05/22 8:57 AM) Pulse Rate [55-90 bpm] 99 bpm *H* (07/05/22 11:33 AM) 103 bpm *H* (07/05/22 9:04 AM) 120 bpm *H* (07/05/22 8:57 AM) Blood Pressure [90-138/55-84 mm Hg] 119/69mm Hg (07/05/22 11:33 AM) 143/81mm Hg *H* (07/05/22 9:04 AM) Respiratory Rate [16-30 br/min] 18 br/min (07/05/22 11:33 AM) 16 br/min (07/05/22 9:04 AM) 16 br/min (07/05/22 8:57 AM) Temperature [96.8-100.4 DegF] 98.0 DegF (07/05/22 11:33 AM) 98.0 DegF (07/05/22 9:04 AM) Mode of Delivery (Oxygen) Room air (07/05/22 11:33 AM) Room air (07/05/22 8:57 AM) Blood pressure sites Arm, left (07/05/22 11:33 AM) Temperature Route Oral (07/05/22 11:33 AM) Social History Social History Type Response Smoking Status Never (less than 100 in lifetime) entered on: 06/19/22 Sex Note * BHSPowerscribe , GERMAIN S: TRANSCRIBE Amy Cordova MD: VERIFY Event Display: Result: Authored Date: [id number] Examination: Chest performed on 07/05/2022. History: Cough. Findings: Frontal and lateral views of the chest are submitted without comparison. The cardiac and mediastinal silhouettes are within normal limits. The lungs are clear. Minimal scoliosis within the spine is present. Impression: There is no acute cardiopulmonary disease. WSN: [id number] Ordering Physician: Woody Mccloud Dictated By: Amy Cordova MD Dictated Date/Time: 07/05/22 1:31 pm Reviewed By: Amy Cordova MD Signed By: Amy Cordova MD Signed Date/Time: 07/05/22 1:31 pm Transcribed By: MARCIA Transcribed Date/Time: 07/05/22 1:31 pm Patient Care team information Care Team Personnel Name: Louann Dominguez MD Position: Reference Physician Member Role: PCP Address: Address: [address] [place] [address]- Name: Nick Dangelo RN Position: [facility] RN W/OE and Tasks Member Role: Patient Care Provider Care Team Related Persons Name: ARNOLJENNIFER MALENA Address: home [address] [place] [address] Name: SUSHILA VENTURA Address: home [address] [place] [address]
--- OUTSIDE RECORDS SUMMARY | 2023-04-27 13:36 | XMS_ITS | Continuity of Care Document ---
Author Name Unknown Organization [facility] Address Unknown Care Team Providers Care Electronic Organ Technician Name Role Phone Leander GRANT, Kathya Oneill Primary Care Physician Encounter [facility] Date(s): 12/23/21 - 12/30/21 [facility] Reproductive Medicine Attending Physician: Veronica Irizarry MD Referring Physician: Sofia Valverde MD Allergies, Adverse Reactions, Alerts Substance Reaction Severity Status amoxicillin severe hives,trouble breathing Active penicillin severe hives,trouble breathing Active Medications cabergoline 0.5 mg oral tablet 0.5 tablet = 0.25 mg, By Mouth, Every Sunday and Sunday, # 13 tablet, 3 Refills, Maintenance, 11/08/21 16:59:00 EDT, [facility]/pharmacy #[id number], Partial fill upon patient request [...] Status Inform ant Obese class II(Confirmed) Active Vital Signs Most recent to oldest [Reference Range]: 1 2 Height 157.48 cm (12/23/21 11:30 AM) 157.48 cm (12/23/21 8:00 AM) Weight 88.6 kg (12/23/21 11:30 AM) Pulse Rate [55-90 bpm] 86 bpm (12/23/21 11:30 AM) Body Mass Index [18.5-24.99] 35.73 *>HHI* (12/23/21 11:30 AM) Blood Pressure [90-138/55-84 mm Hg] 102/ 59mm Hg (12/23/21 11:30 AM) Blood pressure sites Arm, right (12/23/21 11:30 AM) Weight Obtained Via Standing scale (12/23/21 11:30 AM) Social History Social History Type Response Smoking Status Never (less than 100 in lifetime);Never entered on: 08/23/21 Sex
--- OUTSIDE RECORDS SUMMARY | 2023-04-27 13:36 | XMS_ITS | Continuity of Care Document ---
Author Name Unknown Organization [facility] Address [address] [address]- Care Team Providers Care Occupational Therapy Technician Name Role Phone Kathya Tabor MD Primary Care Physician Encounter [facility] Date(s): 11/15/22 - 12/15/[address] [address] Allergies, Adverse Reactions, Alerts Substance [...] 1 Refills, Maintenance, 10/02/22 11:27:00 EDT, Tablet, [facility]/pharmacy #[id number], Partial fill upon patient request if... Start Date: 10/02/22 Status: Ordered famotidine 20 mg oral tablet See Instructions, TAKE 1 TABLET BY MOUTH TWICE A DAY, # 60 tablet, Refills 1, Maintenance, 12/12/2310:42:00 EDT, Instructions Replace Required Details, Route to Pharmacy Electronically, [facility], 157.48, cm, 12/07/22 10:20:00 EDT, Height, 96.1... [...] Team Personnel Name: Kathya Tabor MD Position: [facility] General Pediatrics MD Member Role: PCP Address: Address: [address] [place] [address]- [place] Care Team Related Persons Name: MALENA KELSEY Address: home [address] [place] [address] Name: ENGLISH SUSHILA Address: [address] [place] [address]
--- OUTSIDE RECORDS SUMMARY | 2023-04-27 13:36 | XMS_ITS | Continuity of Care Document ---
Author Name Unknown Organization [facility] Address [address] [place] [address]- Care Team Providers Care Explosion Welder Name Role Phone Kathya Tabor MD Primary Care Physician Encounter [facility] Date(s): 01/31/23 - 03/02/[address] [address]- Allergies, Adverse Reactions, Alerts Substance Reaction Severity [...] Refills, Maintenance, 02/20/23 16:27:00 EDT, Tablet, [id number], Partial fill upon patient request if the [...] Team Personnel Name: Kathya Tabor MD Position: [facility] General Pediatrics MD Member Role: PCP Address: Address: [address] [place] [address]- Name: Madi Sauer MD Position: [facility] SENIOR QUALITY TECHNICIAN MD Member Role: Lifetime SENIOR QUALITY TECHNICIAN Physician Address: Address: [address] [place] [address] Women's Health [place] [address]- Care Team Related Persons Name: MALENA KELSEY Address: [address] [place] [address] Name: MADDIE VENTURA Address: AMERCN Address: [address] [place] [address] [place] Name: SUSHILA VENTURA Address: [address] [place] [address]
--- OUTSIDE RECORDS SUMMARY | 2023-04-27 13:36 | XMS_ITS | Continuity of Care Document ---
Author Name Unknown Organization [facility] Address [address] [place] [address]- Care Team Providers Care Honest John Rocket Crew Member Name Role Phone Kathya Tabor MD Primary Care Physician [phone] Encounter [facility] [place] Date(s): 02/19/23 - 03/21/23 [facility] [address] [address] Allergies, Adverse Reactions, Alerts Substance [...] Replace Required Details, Route to Pharmacy Electronically, [facility] [address], 158, cm, 03/13/23 9:25:00 EDT, Mee... Start Date: 03/16/23 Status: Ordered Xulane 150 mcg-35 mcg/24 hr transdermal film, extended release 1 patch, Topically, Every week, Wait until 6 weeks after delivery before starting this medication. Apply a new patch weekly for 3 weeks, then remove patch for 1 week., # 12 each, 3 Refills, Maintenance, 01/27/23 11:30:00 EDT, [facility]/pharmacy #[id number], Parti... Start Date: 01/27/23 [...] Team Personnel Name: Kathya Tabor MD Position: [facility] General Pediatrics MD Member Role: PCP Address: Address: [address] [place] [address]- Name: Madi Sauer MD Position: [facility] ARMOR OFFICER MD Member Role: Lifetime ARMOR OFFICER Physician Address: Address: [address] [place] [address] Women's Health Desktop [place] [address]- Care Team Related Persons Name: MALENA KELSEY Address: [address] [place] [address] Name: MADDIE VENTURA Address: AMERCN Address: [address] [place] [address] [place] Name: SUSHILA VENTURA Address: [address] [place] [address]
--- OUTSIDE RECORDS SUMMARY | 2023-04-27 13:36 | XMS_ITS | Continuity of Care Document ---
Author Name Unknown Organization [facility] Address [address] [place] [address]- Care Team Providers Care Camera Operator Name Role Phone Kathya Tabor MD Primary Care Physician Encounter [facility] Date(s): 01/08/23 - 02/07/23 [facility] [address] [place] [id number] Allergies, Adverse Reactions, Alerts Substance Reaction [...] 0 Refills, Maintenance, 01/28/23 14:01:00 EDT, Tablet, [id number], Partial fill upon [...] Replace Required Details, Route to Pharmacy Electronically, [facility] STORE 93116, 157.48, cm, 12/07/22 10:20:00 EDT, Height, 96.1... [...] tablet, 1 Refills, Maintenance, 01/17/23 14:01:00 EDT, [facility]/pharmacy #[id number], Partial fill upon patient [...] EDT, Height,... Start Date: 02/02/23 Status: Ordered Tums 500 mg Tablet 2 [...] Pediatrics MD Member Role: PCP Address: Address: [address] [place] [address]- [place] Name: Cristiane GRANT, Madi Ayala Position: [facility] RADIOLOGY RECEPTIONIST MD Member Role: Lifetime RADIOLOGY RECEPTIONIST Physician Address: Address: [address] [place] [address] Women's Health [place] [address]- [place] Care Team Related Persons Name: FABIODomingo MALENA Address: home [address] [place] [address] Name: MADDIE VENTURA Address: AMERCN Address: [address] [place] [address] Name: SUSHILA VENTURA Address: home [address] [place] [address]
--- OUTSIDE RECORDS SUMMARY | 2023-04-27 13:36 | XMS_ITS | Continuity of Care Document ---
Author Name Unknown Organization [facility] Address [address] [place] [address]- Care Team Providers Care Engineering Programmer Name Role Phone Kathya Tabor MD Primary Care Physician [place] [facility] [place] - 04/04/23 [facility] [address] [id number] Allergies, Adverse Reactions, Alerts Substance Reaction [...] Replace Required Details, Route to Pharmacy Electronically, [facility] 09858, 158, cm, 03/13/23 9:25:00 EDT, Mee... Start Date: 03/16/23 Status: Ordered Xulane 150 mcg-35 mcg/24 hr transdermal film, extended release 1 patch, Topically, Every week, Wait until 6 weeks after delivery before starting this medication. Apply a new patch weekly for 3 weeks, then remove patch for 1 week., # 12 each, 3 Refills, Maintenance, 01/27/23 11:30:00 EDT, [facility]/pharmacy #[id number], Parti... Start Date: 01/27/23 [...] Team Personnel Name: Kathya Tabor MD Position: [facility] General Pediatrics MD Member Role: PCP Address: Address: [address] [place] [address]- Name: Madi Sauer MD Position: [facility] BUDGET COUNSELOR MD Member Role: Lifetime BUDGET COUNSELOR Physician Address: Address: [address] [place] [address] Women's Health Senior [place]ware [place] [address]- Care Team Related Persons Name: MALENA KELSEY Address: home [address] [place] [address] Name: MADDIE VENTURA Address: AMERCN Address: [address] [place] [address] [place] Name: SUSHILA VENTURA Address: [address] [place] [address]
--- OUTSIDE RECORDS SUMMARY | 2023-04-27 13:36 | XMS_ITS | Continuity of Care Document ---
Author Name Unknown Organization [facility] neilLight[facility] Address [address] [facility], 4t [place] [address]- Care Team Providers Care Marketing Proposal Coordinator Name Role Phone Kathya Tabor MD Primary Care Physician [phone] [place] [facility] [id number] Date(s): 09/14/22 - 10/14/22 [facility] [address] [facility], 4th Floor [place], [place] [address] Attending Physician: Admmaria g, Beckie Admitting Physician: AdmtrBeckie Referring Physician: Admtr, Ar8 Allergies, Adverse Reactions, Alerts Substance Reaction Severity [...] Refills, Maintenance, 10/02/22 11:27:00 EDT, Tablet, [id number], Partial fill upon patient request if... Start [...] Team Personnel Name: Kathya Tabor MD Position: [facility] General Pediatrics MD Member Role: PCP Address: Address: [address] [place] [address]- Care Team Related Persons Name: MALENA KELSEY Address: [address] [place] [address] Name: SUSHILA VENTURA Address: home [address] [place] [address]
--- OUTSIDE RECORDS SUMMARY | 2023-04-27 13:36 | XMS_ITS | Continuity of Care Document ---
Author Name Unknown Organization [facility] O[facility]yla neil[employer] Address [address] [facility], 4t [place] [address]- Care Team Providers Care Head Stock Operator Name Role Phone Leander GRANT, Kathya Oneill Primary Care Physician En[place] [facility] [place] [id number] Date(s): 12/07/22 - 12/14/22 [facility] [employer] [facility] [address] [facility], 4th [address] [place], [place] [address] Attending Physician: Inge Mejia MD Referring Physician: Irlanda KING, Iram Kelly Allergies, Adverse Reactions, Alerts Substance Reaction Severity [...] 1 Refills, Maintenance, 10/02/22 11:27:00 EDT, Tablet, [facility]/pharmacy #[id number], Partial fill upon patient request if... Start Date: 10/02/22 Status: Ordered famotidine 20 mg oral tablet See Instructions, TAKE 1 TABLET BY MOUTH TWICE A DAY, # 60 tablet, Refills 1, Maintenance, 12/12/2310:42:00 EDT, Instructions Replace Required Details, Route to Pharmacy Electronically, [facility] STORE 67273, 157.48, cm, 12/07/22 10:20:00 EDT, Height, 96.1... [...] 100 in lifetime) entered on: 06/19/22 Sex Radiology * Event Display: PDC Follow up Anatomy * Event Display: PDC Follow up Anatomy Authored Date: [id number] OBSTETRICS REPORT PATIENT INFO: CMRN: [id number] BMRN: [id number] : [birth year] (22 yrs)(F) Name: CARLOS CATES Visit Date: 12/07/2022 09:22 am PERFORMED BY: Performed By: Pippa Carmen RDMS Attending: Inge Mejia MD Referred By: KARISSA Fournier CNM Location: [address] INDICATIONS: Placenta previa O44.0_ Z34.90 Placenta previa O44.00 VITAL SIGNS: Height: 5'1 EVALUATION: Num Of Fetuses: 1 Heart Rate(bpm): 158 Cardiac Activity: Present Presentation: Cephalic Placenta: Anterior Low-lying Amniotic Fluid SAROJ FV: Within normal limits SAROJ Sum(cm) Largest Pocket(cm) 15 4.7 RUQ(cm) RLQ(cm) LUQ(cm) LLQ(cm) 4.7 3.4 2.9 4 BIOMETRY: BPD: 80.5 mm G.Age: 32w 2d 47 % HC: 297.6 mm G.Age: 33w 0d 33 % AC: 314.2 mm G.Age: 35w 2d > 99 % FL: 63.8 mm G.Age: 33w 0d 60 % LV: 5.3 mm CI: 73.82 % 70 - 86 FL/HC: 21.4 % 19.1 - 21.3 HC/AC: 0.95 0.96 - 1.17 FL/BPD: 79.3 % 71 - 87 FL/AC: 20.3 % 20 - 24 Est. FW: 2360 gm 5 lb 3 oz 93 % GESTATIONAL AGE: LMP: 32w 1d Date: 04/26/22 LAYLA: 01/31/23 U/S Today: 33w 3d LAYLA: 01/22/23 Best: 32w 1d Det. By: LMP (04/26/22) LAYLA: 01/31/23 CERVIX UTERUS ADNEXA: Cervix Length: 4 cm. Appears closed Comment Vaginal scanning was done. COMMENTS: The placenta is low-lying and 16 mm from the internal os. Normal growth, but AC >99th percentile. delivery is recommended when the placental edge is <11 mm from the internal os. Conversely, if the distance is 11 mm or greater from the cervix a trial of labor can be attempted with increased surveillance for potential bleeding in labor. Delivery timing at 11 mm and greater is after 39 0/7 weeks in the absence of other indication for earlier delivery. RECOMMENDATIONS: Repeat placenta at 36 weeks Inge Mejia MD Electronically Signed Final Report 12/07/2022 10:07 am * Event Display: PDC Follow up Anatomy Authored Date: [id number] Please click on pdf link to open report Patient Care team information Care Team Personnel Name: Kathya Tabor MD Position: [facility] General Pediatrics MD Member Role: PCP Address: Address: [address] [place] [address]- Care Team Related Persons Name: MALENA KELSEY Address: home [address] [place] [address] Name: SUSHILA VENTURA Address: [address] [place] [address]
--- OUTSIDE RECORDS SUMMARY | 2023-04-27 13:36 | XMS_ITS | Continuity of Care Document ---
Author Name Unknown Organization [facility] Address Unknown Care Team Providers Care Administrative Assistant Data Entry Name Role Phone Leander GRANT, Kathya Oneill Primary Care Physician [phone] [place] [facility] 11/10/21 - 11/17/21 [facility] Reproductive Medicine Attending Physician: Veronica Irizarry MD Referring Physician: Sofia Valverde MD Allergies, Adverse Reactions, Alerts Substance Reaction Severity Status amoxicillin severe hives,trouble breathing Active penicillin severe hives,trouble breathing Active Medications cabergoline 0.5 mg oral tablet 0.5 tablet = 0.25 mg, By Mouth, Every Sunday and Sunday, # 13 tablet, 3 Refills, Maintenance, 11/08/21 16:59:00 EDT, [facility]/pharmacy #[id number], Partial fill upon patient request if the prescription is for a schedule II opioid drug., 157.48, cm, 09/01/21 10:... Start Date: 11/08/21 Status: Ordered Cranberry oral tablet 1 tablet, By Mouth, Daily in AM, 0 Refills, Maintenance, 08/11/20 15:24:00 EST, Partial fill upon patient request if the prescription is for a schedule II opioid drug. Start Date: 08/11/20 Status: Ordered Multivitamins with Vitamin B Complex, [...]
--- OUTSIDE RECORDS SUMMARY | 2023-04-27 13:36 | XMS_ITS | Continuity of Care Document ---
Author Name Unknown Organization [facility] Address [address] [place] [address], 4t [place] [address]- Care Team Providers Care Photoradio Operator Name Role Phone Tyrone Baptiste MD, Louann Pedraza Primary [facility] Phys[id number] - 07[facility]07[facility] [employer] [facility] [address] [facility], 4th [place] [address]- Allergies, Adverse Reactions, Alerts Substance Reaction Severity Status amoxicillin severe hives,trouble breathing Active penicillin severe hives,trouble breathing Active Medications cabergoline 0.5 mg oral tablet 0.5 tablet = 0.25 mg, By Mouth, Every Sunday and Sunday, # 13 tablet, 3 Refills, Maintenance, 05/10/22 15:59:00 EDT, [id number], Partial fill upon patient [...] opioid drug. Start Date: 08/11/20 Status: Ordered Tamiflu 75 mg oral capsule 1 capsule = 75 mg, By Mouth, 2 times a day, for 5 days, # 10 capsule, 0 Refills, Acute 07/12/22 13:21:00 EST, 07/07/22 13:21:00 EST, Capsule, [id number], Partial fill upon patient request if the prescription is for a schedule II opioid drug.,... Start Date: 07/07/22 Stop Date: 07/12/22 Status: Ordered Problem List Condition Confirmation Course Effective Dates Status Health St atus Informant Obese class II Confirmed Active Social History Social History Type Response Smoking Status Never (less than 100 in lifetime) entered on: 06/19/22 Sex Patient Care team information Care Team Personnel Name: Tyrone Baptiste MD , Louann Pedraza Position: Reference Physician Member Role: PCP Address: Address: [address] [place] [address]- Care Team Related Persons Name: MALENA KELSEY Address: home [address] [place] [address] Name: SUSHILA VENTURA Address: [address] [place] [address]
--- OUTSIDE RECORDS SUMMARY | 2023-04-27 13:36 | XMS_ITS | Continuity of Care Document ---
Author Name Unknown Organization [facility] Address [address] [place] [address]- Care Team Providers Care Flight Engineer Manager Name Role Phone Kathya Tabor MD Primary Care Physician En[place] [facility] [place] Date(s): 03/06/23 - 04/05/[address] [email or web address] Allergies, Adverse Reactions, Alerts Substance Reaction Severity [...] Replace Required Details, Route to Pharmacy Electronically, [facility] 01257, 158, cm, 03/13/23 9:25:00 EDT, Mee... Start Date: 03/16/23 Status: Ordered Xulane 150 mcg-35 mcg/24 hr transdermal film, extended release 1 patch, Topically, Every week, Wait until 6 weeks after delivery before starting this medication. Apply a new patch weekly for 3 weeks, then remove patch for 1 week., # 12 each, 3 Refills, Maintenance, 01/27/23 11:30:00 EDT, [facility]/pharmacy #[id number], Parti... Start Date: 01/27/23 Status: [...] Team Personnel Name: Kathya Tabor MD Position: [facility] General Pediatrics MD Member Role: PCP Address: Address: [address] [place] [address]- Name: Madi Sauer MD Position: [facility] METAL TESTER MD Member Role: Lifetime METAL TESTER Physician Address: Address: [address] [place] [address] Women's [place] [address]- Care Team Related Persons Name: MALENA KELSEY Address: home [address] [place] [address] Name: MADDIE VENTURA Address: AMERCN Address: home [address] [place] [address] [place] Name: SUSHILA VENTURA Address: [address] [place] [address]
--- OUTSIDE RECORDS SUMMARY | 2023-04-27 13:36 | XMS_ITS | Continuity of Care Document ---
Author Name Unknown Organization [facility] Address [address] [address]- Care Team Providers Care Stunt Woman Name Role Phone Kathya Tabor MD Primary Care Physician [place] [facility] [place] 11/20/22 - 12/20/[address] [address] Allergies, Adverse Reactions, Alerts Substance Reaction [...] 1 Refills, Maintenance, 10/02/22 11:27:00 EDT, Tablet, [facility]/pharmacy #[id number], Partial fill upon patient request if... Start Date: 10/02/22 Status: Ordered famotidine 20 mg oral tablet See Instructions, TAKE 1 TABLET BY MOUTH TWICE A DAY, # 60 tablet, Refills 1, Maintenance, 12/12/2310:42:00 EDT, Instructions Replace Required Details, Route to Pharmacy Electronically, [facility] 75385, 157.48, cm, 12/07/22 10:20:00 EDT, Height, 96.1... [...] Name: Kathya Tabor MD Position: [facility] General Pediatrics MD Member Role: PCP Address: Address: [address] [place] [address]- [place] Care Team Related Persons Name: MALENA KELSEY Address: home [address] [place] [address] Name: ENGLISH SUSHILA Address: [address] [place] [address]
--- OUTSIDE RECORDS SUMMARY | 2023-04-27 13:36 | XMS_ITS | Continuity of Care Document ---
Author Name Unknown Organization [facility] Channingkeyla neilKing [employer] [facility] Address [address] [facility], 4t [place] [address]- Care Team Providers Care Bioinformaticist Name Role Phone Leander GRANT, Kathya Oneill Primary Care Physician [phone] Encounter [facility] [place] ACCT R [id number] Date(s): 01/17/23 - 01/24/23 [facility] [employer] JustinoMiya[employer]abe[employer] [facility] [address] [facility], 4th [place] [address]- Attending Physician: Nathalie Kearney MD Referring Physician: [...] 1 Refills, Maintenance, 10/02/22 11:27:00 EDT, Tablet, [facility]/pharmacy #[id number], Partial fill upon patient request if... Start Date: 10/02/22 Status: Ordered famotidine 20 mg oral tablet See Instructions, TAKE 1 TABLET BY MOUTH TWICE A DAY, # 60 tablet, Refills 1, Maintenance, 12/12/2310:42:00 EDT, Instructions Replace Required Details, Route to Pharmacy Electronically, [facility] 40310, 157.48, cm, 12/07/22 10:20:00 EDT, Height, 96.1... [...] tablet, 1 Refills, Maintenance, 01/17/23 14:01:00 EDT, [facility]/pharmacy #[id number], Partial fill upon patient [...] Team Personnel Name: Kathya Tabor MD Position: [facility] General Pediatrics MD Member Role: PCP Address: Address: [address] [place] [address]- Care Team Related Persons Name: MALENA KELSEY Address: [address] [place] [address] Name: SUSHILA VENTURA Address: [address] [place] [address]
--- OUTSIDE RECORDS SUMMARY | 2023-04-27 13:36 | XMS_ITS | Continuity of Care Document ---
Author Name Unknown Organization [facility] Address [address] [place] [address]- Care Team Providers Care Women Nurse Name Role Phone Kathya Tabor MD Primary Care Physician [phone] [place] [facility] [place]19[place]23 - 03/21/23 [facility] [address] [address] Allergies, Adverse Reactions, Alerts Substance [...] Replace Required Details, Route to Pharmacy Electronically, [facility] 91136, 158, cm, 03/13/23 9:25:00 EDT, Mee... Start Date: 03/16/23 Status: Ordered Xulane 150 mcg-35 mcg/24 hr transdermal film, extended release 1 patch, Topically, Every week, Wait until 6 weeks after delivery before starting this medication. Apply a new patch weekly for 3 weeks, then remove patch for 1 week., # 12 each, 3 Refills, Maintenance, 01/27/23 11:30:00 EDT, [facility]/pharmacy #[id number], Parti... Start Date: [...] Kathya Tabor MD Position: [facility] General Pediatrics MD Member Role: PCP Address: Address: [address] [place] [address]- Name: Madi Sauer MD Position: [facility] CERTIFIED WELLNESS PROGRAM COORDINATOR MD Member Role: Lifetime CERTIFIED WELLNESS PROGRAM COORDINATOR Physician Address: Address: [address] [place] [address] Women's [place] [address]- Care Team Related Persons Name: MALENA KELSEY Address: [address] [place] [address] Name: MADDIE VENTURA Address: AMERCN Address: [address] [place] [address] [place] Name: SUSHILA VENTURA Address: [address] [place] [address]
--- OUTSIDE RECORDS SUMMARY | 2023-04-27 13:36 | XMS_ITS | Continuity of Care Document ---
Author Name Unknown Organization [facility] [place] Linda [employer] [facility] Address [address] [facility], 4t [place] [address]- Care Team Providers Care Mortgage Field Inspector Name Role Phone Kathya Tabor MD Primary Care Physician [id number]/21[facility]22 - 07/21/22 [facility] [employer] [facility] [address] [facility], 4th [place] [address]- Allergies, Adverse Reactions, Alerts Substance Reaction Severity [...] Team Personnel Name: Kathya Tabor MD Position: [facility] General Pediatrics MD Member Role: PCP Address: Address: [address] [place] [address]- Care Team Related Persons Name: YANIRAMALENA BRIZUELA Address: home [address] [place] [address] Name: SUSHILA VENTURA Address: [address] [place] [address]
--- OUTSIDE RECORDS SUMMARY | 2023-04-27 13:36 | XMS_ITS | Continuity of Care Document ---
Author Name Unknown Organization [facility] Address [address] [address] Care Team Providers Care Events Assistant Name Role Phone Kathya Tabor MD Primary Care Physician [phone] [place] [facility] [place]s): 02/02/23 - 03/04/23 [facility] [address] [place] [address] Allergies, Adverse Reactions, Alerts Substance [...] Team Personnel Name: Kathya Tabor MD Position: [facility] General Pediatrics MD Member Role: PCP Address: Address: [address] [place] [address]- Name: Madi Sauer MD Position: [facility] LOG CHAIN WORKER MD Member Role: Lifetime LOG CHAIN WORKER Physician Address: Address: [address] [place] [address] Women's Health [place] [address]- Care Team Related Persons Name: MALENA KELSEY Address: [address] [place] [address] Name: MADDIE VENTURA Address: AMERCN Address: [address] [place] [address] [place] Name: SUSHILA VENTURA Address: home [address] [place] [address]
--- OUTSIDE RECORDS SUMMARY | 2023-04-27 13:36 | XMS_ITS | Continuity of Care Document ---
Author Name Unknown Organization [facility] Address Unknown Care Team Providers Care Hotel Housekeeper Name Role Phone Kathya Tabor MD Primary Care Physician [phone] [place] [facility] [place] 11/03/21 - 12/03/21 [facility] Reproductive Medicine Allergies, Adverse Reactions, Alerts Substance Reaction Severity Status amoxicillin severe hives,trouble breathing Active penicillin severe hives,trouble breathing Active Medications cabergoline 0.5 mg oral tablet 0.5 tablet = 0.25 mg, By Mouth, Every Sunday and Sunday, # 13 tablet, 3 Refills, Maintenance, 11/08/21 16:59:00 EDT, [facility]/pharmacy #[id number], Partial fill upon patient request if [...]
--- OUTSIDE RECORDS SUMMARY | 2023-04-27 13:36 | XMS_ITS | Continuity of Care Document ---
Author Name Unknown Organization [facility] Address Unknown Care Team Providers Care Title Examiner Name Role Phone Kathya Tabor MD Primary Care Physician [phone] En[place] [facility] [place] Date(s): 09/01/21 - 10/01/21 [facility] Reproductive Medicine Attending Physician: Beckie Gregory Admitting Physician: Beckie Gregory Referring Physician: trBeckie Allergies, Adverse Reactions, Alerts Substance Reaction Severity [...]
--- OUTSIDE RECORDS SUMMARY | 2023-04-27 13:36 | XMS_ITS | Continuity of Care Document ---
Author Name Unknown Organization [facility] Address [address] [facility], 4t [place] [address]- Care Team Providers Care Keg Washer Name Role Phone Leander GRANT, Kathya Oneill Primary Care Physician [phone] [id number]): 07[facility]18[facility]22 - 07/25/22 [facility] [address] [facility], 4th Floor [place], [place] [address] Attending Physician: Inge Mejia MD Referring Physician: Jhonny KING, Kaelyn Fan Allergies, Adverse Reactions, Alerts Substance Reaction Severity [...] lifetime) entered on: 06/19/22 Sex Note * Event Display: PDC Nuchal Transluscency * Event Display: PDC Nuchal Transluscency Authored Date: [id number] OBSTETRICS REPORT PATIENT INFO: CMRN: [id number] BMRN: [id number] : [birth year] (22 yrs)(F) Name: CARLOS CATES Visit Date: 07/18/2022 12:45 pm PERFORMED BY: Performed By: Pippa Carmen RDMS Attending: Pankaj Bob MD Referred By: KARISSA Barry CNM Location: [address] INDICATIONS: M - BMI O99.21_ E66.01 First Trimester NT Screening Z36.82 VITAL SIGNS: Weight (lb): 192 Height: 5'1 BMI: 36.27 EVALUATION: Num Of Fetuses: 1 Gest. Sac: Seen in the intrauterine cavity Yolk Sac: Visualized Pole: Visualized Heart Rate(bpm): 167 Cardiac Activity: Present Presentation: Variable Placenta: Anterior Amniotic Fluid SAROJ FV: Within normal limits BIOMETRY: GESTATIONAL AGE: LMP: 11w 6d Date: 04/26/22 LAYLA: 01/31/23 Best: 11w 6d Det. By: LMP (04/26/22) LAYLA: 01/31/23 1ST TRIMESTER GENETIC SONOGRAM SCREENING: CRL: 55 mm G.Age: 12w 1d LAYLA: 01/29/23 Nuc Trans: 2.1 mm ANATOMY: Choroid Plexus: SEEN Heart: SEEN Stomach: SEEN Abdominal Wall: SEEN Bladder: SEEN Upper Extremities: SEEN Lower Extremities: SEEN CERVIX UTERUS ADNEXA: Cervix Appears closed Adnexa Not well seen. COMMENTS: The nuchal translucency portion of the first trimester screen was done, and the patient was sent to the lab for the biochemical markers portion of the test. The results should be sent by the lab to your office. Pankaj Bob MD Electronically Signed Final Report 07/18/2022 01:40 pm * Event Display: PDC Nuchal Transluscency Authored Date: Please click on pdf link to open report Patient Care team information Care Team Personnel Name: Kathya Tabor MD Position: [facility] General Pediatrics MD Member Role: PCP Address: Address: [address] [place] [address]- Care Team Related Persons Name: MALENA KELSEY Address: home [address] [place] [address] Name: SUSHILA VENTURA Address: home [address] [place] [address]
--- OUTSIDE RECORDS SUMMARY | 2023-04-27 13:37 | XMS_ITS | Continuity of Care Document ---
Author Name Unknown Organization [facility] Address [address] [address]- Care Team Providers Care Sprayer Automatic Spray Machine Name Role Phone Kathya Tabor MD Primary Care Physician Encounter [facility] Date(s): 12/26/22 - 01/25/[address] [address] Allergies, Adverse Reactions, Alerts [...] 1 Refills, Maintenance, 10/02/22 11:27:00 EDT, Tablet, [facility]/pharmacy #[id number], Partial fill upon patient request if... Start Date: 10/02/22 Status: Ordered famotidine 20 mg oral tablet See Instructions, TAKE 1 TABLET BY MOUTH TWICE A DAY, # 60 tablet, Refills 1, Maintenance, 12/12/2310:42:00 EDT, Instructions Replace Required Details, Route to Pharmacy Electronically, [facility], 157.48, cm, 12/07/22 10:20:00 EDT, Height, 96.1... [...] tablet, 1 Refills, Maintenance, 01/17/23 14:01:00 EDT, [facility]/pharmacy #[id number], Partial fill upon [...] Team Personnel Name: Kathya Tabor MD Position: [facility] General Pediatrics MD Member Role: PCP Address: Address: [address] [place] [address]- Care Team Related Persons Name: CARLOS CAETS Address: AMERCN Address: home [address] [place] [address] [place] Name: MALENA KELSEY Address: home [address] [place] [address] Name: SUSHILA VENTURA Address: home [address] [place] [address]
--- OUTSIDE RECORDS SUMMARY | 2023-04-27 13:37 | XMS_ITS | Continuity of Care Document ---
Author Name Unknown Organization [facility] Address [address] [place] [address]- Care Team Providers Care Occupational Analyst Name Role Phone Kathya Tabor MD Primary Care Physician Encounter [facility] Date(s): 03/05/23 - 04/04/23 [facility] [address] [place] [id number] Allergies, Adverse Reactions, Alerts Substance [...] Replace Required Details, Route to Pharmacy Electronically, [facility] [address]397, 158, cm, 03/13/23 9:25:00 EDT, Mee... Start Date: 03/16/23 Status: Ordered Xulane 150 mcg-35 mcg/24 hr transdermal film, extended release 1 patch, Topically, Every week, Wait until 6 weeks after delivery before starting this medication. Apply a new patch weekly for 3 weeks, then remove patch for 1 week., # 12 each, 3 Refills, Maintenance, 01/27/23 11:30:00 EDT, [facility]/pharmacy #[id number], Parti... Start Date: 01/27/23 [...] Pediatrics MD Member Role: PCP Address: Address: [address] [place] [address]- Name: Madi Sauer MD Position: [facility] MANAGER ADMINISTRATION MD Member Role: Lifetime MANAGER ADMINISTRATION Physician Address: Address: [address] [place] [address] Women's [place] [address]- Care Team Related Persons Name: MALENA KELSEY Address: home [address] [place] [address] Name: MADDIE VENTURA Address: AMERCN Address: home [address] [place] [address] [place] Name: SUSHILA VENTURA Address: home [address] [place] [address]
--- OUTSIDE RECORDS SUMMARY | 2023-04-27 13:37 | XMS_ITS | Continuity of Care Document ---
Author Name Unknown Organization [facility] Address [address] [address]- Care Team Providers Care Inspector Assembly Name Role Phone Kathya Tabor MD Primary Care Physician Encounter [facility] Date(s): 08/07/22 - 09/06/22 [facility] [address] [place] [id number] Allergies, Adverse Reactions, Alerts Substance Reaction Severity Status amoxicillin severe hives,trouble breathing Active penicillin severe hives,trouble breathing Active Immunizations Given and Recorded Vaccine Date Status Refusal Reason influenza virus vaccine, inactivated 07/26/17 Eliel rded tetanus/diphtheria/pertussis, acel(Tdap) 07/26/17 Recorded Hepatitis A Pediatric Vaccine 02/09/16 Recorded Hepatitis A Pediatric Vaccine 02/05/15 Recorded Medications diphenhydrAMINE 25 mg oral tablet 1 tablet = 25 mg, By Mouth, Every 6 hours, PRN Headache, # 48 tablet, 0 Refills, Maintenance, 08/07/22 15:11:00 EST, [facility]/pharmacy #[id number], Partial fill upon patient request if the prescription is for aschedule II opioid drug., 157.48, cm, 07/18/22 13:1... Start Date: 08/07/22 Status: Ordered Multivitamins with Vitamin B Complex, Vitamin C, Minerals and L- Methylfolate oral capsule 1 capsule, By Mouth, Daily in AM, 0 Refills, Maintenance, 08/11/20 15:23:00 EST, Caps[facility], Partial fill upon patient request if the prescription is for a schedule II opioid drug. Start Date: 08/11/20 Status: Ordered Reglan 10 mg oral tablet 1 tablet = 10 mg, By Mouth, Every 6 hours, PRN Nausea & Vomiting, # 28 tablet, 0 Refills, Maintenance, 08/07/22 15:11:00 EST, [facility]/pharmacy #[id number], Partial fill upon patient request if the prescription is for a schedule II opioid drug., 157.48, cm, ... Start Date: 08/07/22 Status: Ordered Problem List Condition Confirmation Course Effective Dates Status Health St atus Informant Obese class I Confirmed Active Social History Social History Type Response Smoking Status Never (less than 100 in lifetime) entered on: 06/19/22 Sex Patient Care team information Care Team Personnel Name: Kathya Tabor MD Position: [facility] General Pediatrics MD Member Role: PCP Address: Address: [address] [place] [address]- Care Team Related Persons Name: MALENA KELSEY Address: home [address] [place] [address] Name: SUSHILA VENTURA Address: [address] [place] [address]
--- OUTSIDE RECORDS SUMMARY | 2023-04-27 13:37 | XMS_ITS | Continuity of Care Document ---
Author Name Unknown Organization [facility] Address [address] [facility], 4t h [address] [place] [address]- Care Team Providers Care Hotel Front Desk Clerk Name Role Phone Tyrone Baptiste MD, Louann Pedraza Primary Care Physician Encounter [facility] ACCT R [id number] Date(s): 06/07/22 - 07/07/22 [facility] [address] [place] [address], [address]th Floor [address] [place] [address] Attending Physician: Admtr, Ar8 Admitting Physician: Admtr, Ar8 Referring Physician: Admtr, Ar8 Allergies, Adverse Reactions, [...] Reference Physician Member Role: PCP Address: Address: [address] [place] [address]- Care Team Related Persons Name: MALENA KELSEY Address: home [address] [place] [address] Name: SUSHILA VENTURA Address: home [address] [place] [address]
--- OUTSIDE RECORDS SUMMARY | 2023-04-27 13:37 | XMS_ITS | Continuity of Care Document ---
Author Name Unknown Organization [facility] Address [address] [address]- Care Team Providers Care Client Project Coordinator Name Role Phone Kathya Tabor MD Primary Care Physician [phone] Encounter [facility] Date(s): 06/30/22 - 07/30/22 [facility] [address] [place] [id number] Allergies, Adverse Reactions, Alerts Substance Reaction Severity [...] MD Member Role: PCP Address: Address: [address] [place] [address]- Care Team Related Persons Name: YANIRAMALENA BRIZUELA Address: home [address] [place] [address] Name: SUSHILA VENTURA Address: home [address] [place] [address]
--- OUTSIDE RECORDS SUMMARY | 2023-04-27 13:37 | XMS_ITS | Continuity of Care Document ---
Author Name Unknown Organization [facility] Address [address] [place] [address]- Care Team Providers Care Mastic Worker Name Role Phone Kathya Tabor MD Primary Care Physician Encounter [facility] Date(s): 01/19/23 - 02/18/23 [facility] [address] [place] [address] Allergies, Adverse Reactions, Alerts Substance [...] 0 Refills, Maintenance, 02/02/23 15:46:00 EDT, Tablet, [facility]/pharmacy #[id number], Partial fill upon patient [...] Team Personnel Name: Kathya Tabor MD Position: [facility] General Pediatrics MD Member Role: PCP Address: Address: [address] [place] [address]- Name: Cristiane GRANT, Madi Ayala Position: [facility] TELEVISION CABLE INSTALLER MD Member Role: Lifetime TELEVISION CABLE INSTALLER Physician Address: Address: [address] [place] [address] Women's [place] [address]- Care Team Related Persons Name: MALENA KELSEY Address: home [address] [place], [place] Name: MADDIE VENTURA Address: AMERCN Address: home [address] [place] [address] [place] Name: SUSHILA VENTURA Address: home [address] [place], [place]
--- OUTSIDE RECORDS SUMMARY | 2023-04-27 13:37 | XMS_ITS | Continuity of Care Document ---
Author Name Unknown Organization [facility] Address [address] [place] [address]- Care Team Providers Care Enterprise Manager Name Role Phone Kathya Tabor MD Primary Care Physician En[place] [facility] Date(s): 02/19/23 - 03/21/23 [facility] [address] [place] [address] Allergies, Adverse Reactions, Alerts Substance Reaction Severity [...] Replace Required Details, Route to Pharmacy Electronically, [facility]229, 158, cm, 03/13/23 9:25:00 EDT, Mee... Start Date: 03/16/23 Status: Ordered Xulane 150 mcg-35 mcg/24 hr transdermal film, extended release 1 patch, Topically, Every week, Wait until 6 weeks after delivery before starting this medication. Apply a new patch weekly for 3 weeks, then remove patch for 1 week., # 12 each, 3 Refills, Maintenance, 01/27/23 11:30:00 EDT, [facility]/pharmacy #[id number], Parti... Start Date: 01/27/23 [...] Team Personnel Name: Kathya Tabor MD Position: [facility] General Pediatrics MD Member Role: PCP Address: Address: [address] [place] [address]- Name: Madi Sauer MD Position: [facility] CREWMAN ARMOURED PERSONNEL CARRIER M113 MD Member Role: Lifetime CREWMAN ARMOURED PERSONNEL CARRIER M113 Physician Address: Address: [address] [place] [address] Women's Health [place] [address]- Care Team Related Persons Name: MALENA KELSEY Address: home [address] [place] [address] Name: MADDIE VENTURA Address: AMERCN Address: home [address] [place] [address] [place] Name: SUSHILA VENTURA Address: home [address] [place] [address]
--- OUTSIDE RECORDS SUMMARY | 2023-04-27 13:37 | XMS_ITS | Continuity of Care Document ---
Author Name Unknown Organization [facility] [employer] [facility] Address [address] [place] [address], 4t [place] [address]- Care Team Providers Care Cooking Instructor Name Role Phone Leander GRANT, Kathya Oneill Primary Care Physician En[place] [facility] ACCT R [id number] Date(s): 01/04/23 - 02/24/23 [facility] [facility] [address] [facility], 4th Floor [place], [place] [address] Attending Physician: Nathalie Kearney MD Referring Physician: [...] Team Personnel Name: Kathya Tabor MD Position: [facility] General Pediatrics MD Member Role: PCP Address: Address: [address] [place] [address]- Name: Cristiane GRANT, Madi Ayala Position: [facility] HOME ENERGY RATER Member Role: Lifetime HOME ENERGY RATER Physician Address: Address: [address] [place] [address] Women's Health [place] [address]- Care Team Related Persons Name: MALENA KELSEY Address: home [address] [place] [address] Name: MADDIE VENTURA Address: AMERCN Address: home [address] [place] [address] Name: SUSHILA VENTURA Address: home [address] [place] [address]
--- OUTSIDE RECORDS SUMMARY | 2023-04-27 13:37 | XMS_ITS | Continuity of Care Document ---
Author Name Unknown Organization [facility]anningkeyla [employer] [facility] Address [address] [facility], 4t [place] [address]- Care Team Providers Care Radiology Rn Name Role Phone Leander GRANT, Kathya Oneill Primary Care Physician [phone] En[place] [facility] Date(s): 01/17/23 - 01/24/23 [facility] [employer] Justino[employer] [facility] [address] [facility], 4th [address] [place], [place] [address] Attending Physician: Keesha GRANT, Marily Rowley Referring Physician: Not on Staff, Referring MD [...] 1 Refills, Maintenance, 10/02/22 11:27:00 EDT, Tablet, [facility]/pharmacy #[id number], Partial fill upon patient request if... Start Date: 10/02/22 Status: Ordered famotidine 20 mg oral tablet See Instructions, TAKE 1 TABLET BY MOUTH TWICE A DAY, # 60 tablet, Refills 1, Maintenance, 12/12/2310:42:00 EDT, Instructions Replace Required Details, Route to Pharmacy Electronically, [facility]761, 157.48, cm, 12/07/22 10:20:00 EDT, Height, 96.1... [...] tablet, 1 Refills, Maintenance, 01/17/23 14:01:00 EDT, [facility]/pharmacy #[id number], Partial fill upon patient [...] Team Personnel Name: Kathya Tabor MD Position: [facility] General Pediatrics MD Member Role: PCP Address: Address: [address] [place] [address]- Care Team Related Persons Name: MALENA KELSEY Address: home [address] [place] [address] Name: SUSHILA VENTURA Address: home [address] [place] [address]
--- OUTSIDE RECORDS SUMMARY | 2023-04-27 13:37 | XMS_ITS | Continuity of Care Document ---
Author Name Unknown Organization [facility] Address [address] [place] [address]- Care Team Providers Care Wig Maker Name Role Phone Kathya Tabor MD Primary Care Physician [phone] Encounter [facility] ACCT R [id number] Date(s): 05/20/22 - 06/19/22 [facility] [address] [place], [place] [address] Attending Physician: Beckie Gregory Admitting Physician: Admtr ArParish Referring Physician: Admtr, Ar8 Allergies, Adverse Reactions, [...] Team Personnel Name: Kathya Tabor MD Position: [facility] General Pediatrics MD Member Role: PCP Address: Address: [address] [place] [address]- Care Team Related Persons Name: MALENA KELSEY Address: home [address] [place] [address] Name: SUSHILA VENTURA Address: home [address] [place] [address]
--- OUTSIDE RECORDS SUMMARY | 2023-04-27 13:37 | XMS_ITS | Continuity of Care Document ---
Author Name Unknown Organization [facility] Address [address] [address]- Care Team Providers Care Gas Leak Inspector Name Role Phone Kathya Tabor MD Primary Care Physician Encounter [facility] Date(s): 11/14/22 - 12/14/[address] [address] Allergies, Adverse Reactions, Alerts Substance [...] Refills, Maintenance, 10/02/22 11:27:00 EDT, Tablet, [facility]/pharmacy #[id number], Partial fill upon patient request if... Start Date: 10/02/22 Status: Ordered famotidine 20 mg oral tablet See Instructions, TAKE 1 TABLET BY MOUTH TWICE A DAY, # 60 tablet, Refills 1, Maintenance, 12/12/2310:42:00 EDT, Instructions Replace Required Details, Route to Pharmacy Electronically, [facility] 17685, 157.48, cm, 12/07/22 10:20:00 EDT, Height, 96.1... [...] Team Personnel Name: Kathya Tabor MD Position: [facility] General Pediatrics MD Member Role: PCP Address: Address: [address] [place] [address]- [place] Care Team Related Persons Name: MALENA KELSEY Address: home [address] [place] [address] Name: ENGLISH SUSHILA Address: [address] [place] [address]
--- OUTSIDE RECORDS SUMMARY | 2023-04-27 13:38 | XMS_ITS | Continuity of Care Document ---
Author Name Unknown Organization [facility] Address [address] [place] [address]- Care Team Providers Care Ordnance Mechanic Name Role Phone Kathya Tabor MD Primary Care Physician Encounter [facility] Date(s): 01/17/23 - 02/16/23 [facility] [address] [address] Allergies, Adverse Reactions, Alerts [...] Team Personnel Name: Kathya Tabor MD Position: [facility] General Pediatrics MD Member Role: PCP Address: Address: [address] [place] [address]- Name: Cristiane GRANT, Madi Ayala Position: [facility] CORPORATE TAX PREPARER MD Member Role: Lifetime CORPORATE TAX PREPARER Physician Address: Address: [address] [place] [address] Women's [place] [address]- Care Team Related Persons Name: MALENA KELSEY Address: home [address] [place], [place] Name: MADDIE VENTURA Address: AMERCN Address: home [address] [place] [address] [place] Name: SUSHILA VENTURA Address: home [address] [place], [place]
--- OUTSIDE RECORDS SUMMARY | 2023-04-27 13:38 | XMS_ITS | Continuity of Care Document ---
Author Name Unknown Organization [facility] Address [address] [place] [address]- Care Team Providers Care Product Merchandiser Name Role Phone Kathya Tabor MD Primary Care Physician Encounter [facility] Date(s): 01/04/23 - 02/08/23 [facility] [address] [place] [address] Attending Physician: Kristina Hood NP Admitting Physician: Kristina Hood NP Referring Physician: Kristina Hood NP Allergies, Adverse Reactions, Alerts Substance Reaction Severity [...] 12:47:00 EDT, 02/08/23 12:47:00 EDT, Capsule, [id number], Partial fill upon patient request if the [...] 0 Refills, Maintenance, 02/02/23 15:46:00 EDT, Tablet, [facility]/pharmacy #[id number], Partial fill upon patient request [...] Pediatrics MD Member Role: PCP Address: Address: [address] [place] [address]- Name: Madi Sauer MD Position: [facility] GOLF PLAYER ASSISTANT Member Role: Lifetime GOLF PLAYER ASSISTANT Physician Address: Address: [address] [place], [place] [address] [facility] [place] [address]- Care Team Related Persons Name: MALENA KELSEY Address: [address] [place] [address] Name: MADDIE VENTURA Address: AMERCN Address: [address] [place] [address] Name: SUSHILA VENTURA Address: home [address] [place] [address]
--- OUTSIDE RECORDS SUMMARY | 2023-04-27 13:38 | XMS_ITS | Continuity of Care Document ---
Author Name Unknown Organization [facility] Address [address] [address]- Care Team Providers Care Director Of Physical Therapy Name Role Phone Kathya Tabor MD Primary Care Physician Encounter [facility] Date(s): 03/13/23 - 04/12/23 [facility] [address] [address]- Attending Physician: Beckie Gregory Admitting Physician: AdmBeckie cummins Referring Physician: AdmtrBeckie Allergies, Adverse Reactions, Alerts Substance Reaction Severity [...] Refills, Maintenance, 02/20/23 16:27:00 EDT, Tablet, [id number], Partial fill upon patient request if the prescription is for a schedule II opioid drug., 158, cm, 02/08/23 11:19:00 EDT, Height,... Start Date: 02/20/23 Status: Ordered valACYclovir 500 mg oral tablet See Instructions, TAKE 1 TABLET BY MOUTH TWICE A DAY FOR 3 DAYS, # 180 tablet, Refills 0, Maintenance, 03/16/23 4:44:00 EDT, Instructions Replace Required Details, Route to Pharmacy Electronically, [id number], 158, cm, 03/13/23 9:25:00 EDT, Heigh... Start Date: 03/16/23 Status: Ordered Xulane 150 mcg-35 mcg/24 hr transdermal film, extended release 1 patch, Topically, Every week, Wait until 6 weeks after delivery before starting this medication. Apply a new patch weekly for 3 weeks, then remove patch for 1 week., # 12 each, 3 Refills, Maintenance, 01/27/23 11:30:00 EDT, [facility]/pharmacy #[id number], Parti... Start Date: 01/27/23 Status: Ordered [...] Pediatrics MD Member Role: PCP Address: Address: [address] [place] [address]- Name: Cristiane GRANT, Madi Ayala Position: [facility] TOOL REPAIRER BENCH MD Member Role: Lifetime TOOL REPAIRER BENCH Physician Address: Address: [address] [place] [address] Women's Health Agronomy Internship - [place], [place] [address] Care Team Related Persons Name: MALENA KELSEY Address: [address] [place] [address] Name: MADDIE VENTURA Address: AMERCN Address: [address] [place] [address] [place] Name: SUSHILA VENTURA Address: [address] [place] [address]
--- OUTSIDE RECORDS SUMMARY | 2023-04-27 13:38 | XMS_ITS | Continuity of Care Document ---
Author Name Unknown Organization [facility] Address [address] [place] [address], [address] [place] [address]- Care Team Providers Care Solar Energy Specialist Name Role Phone Leander GRANT, Kathya Oneill Primary Care Physician Encounter [facility] Date(s): 05/31/21 - 06/30/21 [facility] [address], 4th [place] [address]- Allergies, Adverse Reactions, Alerts Substance Reaction Severity [...]
--- OUTSIDE RECORDS SUMMARY | 2023-04-27 13:38 | XMS_ITS | Continuity of Care Document ---
Author Name Unknown Organization [facility] Address [address] [facility] [address] [facility], 4t [place] [address]- Care Team Providers Care Education Professor Name Role Phone Kathya Tabor MD Primary Care Physician [facility] [facility] [place] 09/14/22 - 09/21/22 [facility] [address] [facility] [facility], 4th [address] [place], [place] [address] Attending Physician: Jasmin Blackwell CNM Allergies, Adverse Reactions, Alerts Substance Reaction [...] tablet, 0 Refills, Maintenance, 08/07/22 15:11:00 EST, [facility]/pharmacy #[id number], Partial fill upon patient request [...] tablet, 0 Refills, Maintenance, 08/07/22 15:11:00 EST, [facility]/pharmacy #[id number], Partial fill upon patient request if the prescription is for a schedule II opioid drug., 157.48, cm, 0... Start Date: 08/07/22 Status: Ordered Problem List Condition Confirmation Course Effective Dates Status Health St atus Informant Obese class I Confirmed Active Social History Social History Type Response Smoking Status Never (less than 100 in lifetime) entered on: 06/19/22 Sex Note * Event Display: [facility] Detailed Anatomy Survey, Lvl 2 * Event Display: [facility] Detailed Anatomy Survey, Lvl 2 Authored Date: [id number] OBSTETRICS REPORT PATIENT INFO: CMRN: [id number] BMRN: [id number] : [birth year] (22 yrs)(F) Name: CARLOS CATES Visit Date: 09/14/2022 11:01 am PERFORMED BY: Performed By: Pippa Carmen RDMS Attending: Pankaj Bob MD Referred By: KARISSA Blackwell CNM Location: [address] INDICATIONS: M - BMI O99.21_ E66.01 Placenta previa - today O44.0_ VITAL SIGNS: Height: 5'1 EVALUATION: Num Of Fetuses: 1 Heart 136 Rate(bpm): Cardiac Activity: Present Presentation: Breech Placenta: Anterior Previa Amniotic Fluid SAROJ FV: Within normal limits BIOMETRY: BPD: 48.8 mm G.Age: 20w 5d HC: 188 mm G.Age: 21w 1d AC: 155.5 mm G.Age: 20w 5d FL: 32.7 mm G.Age: 20w 1d HUM: 31.7 mm G.Age: 20w 4d CER: 20.4 mm G.Age: 19w 3d NFT: 4.1 mm LV: 6.3 mm CM: 5.8 mm CI: 68.79 % 70 - 86 FL/HC: 17.4 % 16.8 - 19.8 HC/AC: 1.21 1.09 - 1.39 FL/BPD: 67.0 % FL/AC: 21.0 % 20 - 24 Est. FW: 362 g 0 lb 13 oz m GESTATIONAL AGE: LMP: 20w 1d Date: 04/26/22 LAYLA: 01/31/23 U/S Today: 20w 5d LAYLA: 01/27/23 Best: 20w 1d Det. LMP (04/26/22) LAYLA: 01/31/23 By: TARGETED ANATOMY: Central Nervous System Calvarium/Cranial V.: No anomalies seen Intracranial Karen: No anomalies seen Cavum: No anomalies seen Lateral Ventricles: No anomalies seen Choroid Plexus: No anomalies seen Cereb./Vermis: No anomalies seen Cisterna Magna: No anomalies seen Midline Falx: No anomalies seen Spine Cervical: No anomalies seen Thoracic: No anomalies seen Lumbar: No anomalies seen Sacral: No anomalies seen Head/Neck Lips: Intact upper lip Neck: No anomalies seen Nuchal Fold: No anomalies seen Palate: No anomalies seen Profile: No anomalies seen Orbits/Eyes: Both lenses seen Thorax Lungs: No anomalies seen 4 Chamber View: No anomalies seen Cardiac Rhythm: No anomalies seen Rt Outflow Tract: No anomalies seen Lt Outflow Tract: No anomalies seen Aortic Arch: No anomalies seen Ductal Arch: No anomalies seen SVC: No anomalies seen Cardiac [place]: No anomalies seen Diaphragm: No anomalies seen 3 Vessel View: No anomalies seen IVC: No anomalies seen Abdomen Ventral Wall: No anomalies seen Cord Insertion: No anomalies seen (into placenta) Stomach: No anomalies seen Liver: No anomalies seen Lt Kidney: No anomalies seen Rt Kidney: No anomalies seen Bladder: No anomalies seen Bowel: No anomalies seen Extremities Lt Humerus: No anomalies seen Rt Humerus: No anomalies seen Lt Forearm: No anomalies seen Rt Forearm: No anomalies seen Lt Hand: No anomalies seen Rt Hand: No anomalies seen Lt Femur: No anomalies seen Rt Femur: No anomalies seen Lt Lower Leg: No anomalies seen Rt Lower Leg: No anomalies seen Lt Foot: No anomalies seen Rt Foot: No anomalies seen Other Umbilical Cord: 3-vessel CERVIX UTERUS ADNEXA: Cervix Length: 4.3 cm. Appears closed Adnexa Not well seen. Comment Vaginal scanning was done. COMMENTS: The detailed anatomy survey was unremarkable. The placenta is anterior, (partial) previa. RECOMMENDATIONS: Repeat ultrasound at 32 weeks with vaginal scanning to recheck the placenta position. Pankaj Bob MD Electronically Signed Final Report 09/14/2022 01:39 pm * Event Display: [facility] Detailed Anatomy Survey, [facility] 2 Authored Date: Please click on pdf link to open report Patient Care team information Care Team Personnel Name: Kathya Tabor MD Position: [facility] General Pediatrics MD Member Role: PCP Address: Address: [address] [place] [address]- Care Team Related Persons Name: MALENA KELSEY Address: home [address] [place] [address] Name: SUSHILA VENTURA Address: [address] [place] [address]
--- OUTSIDE RECORDS SUMMARY | 2023-04-27 13:38 | XMS_ITS | Continuity of Care Document ---
Author Name Unknown Organization [facility] Address Unknown Care Team Providers Care Manufacturing Team Member Name Role Phone Kathya Tabor MD Primary Care Physician Encounter [facility] Date(s): 09/12/21 - 10/12/21 [facility] Allergies, Adverse Reactions, Alerts [...]
--- OUTSIDE RECORDS SUMMARY | 2023-04-27 13:38 | XMS_ITS | Continuity of Care Document ---
Author Name Unknown Organization [facility] Address [address] [place] [address]- Care Team Providers Care Finisher Card Tender Name Role Phone Kathya Tabor MD Primary Care Physician [phone] Encounter [facility] Date(s): 02/06/23 - 03/08/[address] [address]- Allergies, Adverse Reactions, Alerts Substance Reaction Severity [...] Refills, Maintenance, 02/20/23 16:27:00 EDT, Tablet, [id number], Partial fill upon patient request if the [...] Team Personnel Name: Kathya Tabor MD Position: [facility] General Pediatrics MD Member Role: PCP Address: Address: [address] [place] [address]- Name: Madi Sauer MD Position: [facility] DRY STARCH SUPERVISOR MD Member Role: Lifetime DRY STARCH SUPERVISOR Physician Address: Address: [address] [place] [address] Women's Health Customer [place] [address]- Care Team Related Persons Name: MALENA KELSEY Address: [address] [place] [address] Name: MADDIE VENTURA Address: AMERCN Address: [address] [place] [address] [place] Name: SUSHILA VENTURA Address: [address] [place] [address]
--- OUTSIDE RECORDS SUMMARY | 2023-04-27 13:38 | XMS_ITS | Continuity of Care Document ---
Author Name Unknown Organization [facility] Address [address] [place] [address]- Care Team Providers Care Ribbon Sweatband Operator Name Role Phone Kathya Tabor MD Primary Care Physician [phone] Encounter [facility] Date(s): 02/19/23 - 03/21/23 [facility] [address] [address] Allergies, Adverse Reactions, Alerts Substance Reaction [...] Replace Required Details, Route to Pharmacy Electronically, [id number], 158, cm, 03/13/23 9:25:00 EDT, Mee... Start Date: 03/16/23 Status: Ordered Xulane 150 mcg-35 mcg/24 hr transdermal film, extended release 1 patch, Topically, Every week, Wait until 6 weeks after delivery before starting this medication. Apply a new patch weekly for 3 weeks, then remove patch for 1 week., # 12 each, 3 Refills, Maintenance, 01/27/23 11:30:00 EDT, [facility]/pharmacy #[id number], Parti... Start Date: 01/27/23 [...] Pediatrics MD Member Role: PCP Address: Address: [address] [place] [address]- Name: Madi Sauer MD Position: [facility] DEVICE PROCESSING ENGINEER MD Member Role: Lifetime DEVICE PROCESSING ENGINEER Physician Address: Address: [address] [place] [address] Women's [place] [address]- Care Team Related Persons Name: MALENA KELSEY Address: [address] [place] [address] Name: MADDIE VENTURA Address: AMER[place] Address: [address] [place] [address] [place] Name: SUSHILA VENTURA Address: [address] [place] [address]
--- OUTSIDE RECORDS SUMMARY | 2023-04-27 13:38 | XMS_ITS | Continuity of Care Document ---
Author Name Unknown Organization [facility] Address [address] [address]- Care Team Providers Care Director Of Patient Financial Services Name Role Phone Kathya Tabor MD Primary Care Physician [phone] [place] [facility] [place]/22 - 09/22/22 [facility] [address] [address] Allergies, Adverse Reactions, Alerts Substance [...] tablet, 0 Refills, Maintenance, 08/07/22 15:11:00 EST, [facility]/pharm[facility] #[id number], Partial fill upon patient request if [...] tablet, 0 Refills, Maintenance, 08/07/22 15:11:00 EST, [id number], Partial fill upon patient request [...] Team Personnel Name: Kathya Tabor MD Position: [facility] General Pediatrics MD Member Role: PCP Address: Address: [address] [place] [address]- Care Team Related Persons Name: MALENA KELSEY Address: [address] [place] [address] Name: SUSHILA VENTURA Address: [address] [place] [address]
--- OUTSIDE RECORDS SUMMARY | 2023-04-27 13:38 | XMS_ITS | Continuity of Care Document ---
Author Name Unknown Organization [facility] Address [address] [address]- Care Team Providers Care Ross Lift Operator Name Role Phone Kathya Tabor MD Primary Care Physician [phone] Encounter [facility] Date(s): 10/27/22 - 02/24/23 [facility] [address] [place] [id number] Attending Physician: Jasmin Blackwell CNM Admitting Physician: Jasmin Blackwell CNM Referring Physician: Farnaz Sanchez CNM Allergies, Adverse [...] Refills, Maintenance, 02/20/23 16:27:00 EDT, Tablet, [id number], Partial fill upon patient request if the [...] Team Personnel Name: Kathya Tabor MD Position: [facility] General Pediatrics MD Member Role: PCP Address: Address: [address] [place] [address]- Name: Cristiane GRANT, Madi Ayala Position: [facility] PEOPLESO[employer] FINANCIAL DEVELOPER MD Member Role: Lifetime [employer] FINANCIAL DEVELOPER Physician Address: Address: [address] [place] [address] Women[facility] Health Pet[employer] [place] [address]- Care Team Related Persons Name: MALENA KELSEY Address: [address] [place] [address] Name: MADDIE VENTURA Address: AMERCN Address: [address] [place] [address] [place] Name: SUSHILA VENTURA Address: [address] [place] [address]
--- OUTSIDE RECORDS SUMMARY | 2023-04-27 13:38 | XMS_ITS | Continuity of Care Document ---
Author Name Unknown Organization [facility] Address [address] [place] [address]- Care Team Providers Care Concrete Paver Name Role Phone Kathya Tabor MD Primary Care Physician [phone] Encounter [facility] Date(s): 03/05/23 - 04/04/23 [facility] [address] [address] Allergies, Adverse Reactions, Alerts Substance Reaction Severity [...] Replace Required Details, Route to Pharmacy Electronically, [id number], 158, cm, 03/13/23 9:25:00 EDT, Mee... Start Date: 03/16/23 Status: Ordered Xulane 150 mcg-35 mcg/24 hr transdermal film, extended release 1 patch, Topically, Every week, Wait until 6 weeks after delivery before starting this medication. Apply a new patch weekly for 3 weeks, then remove patch for 1 week., # 12 each, 3 Refills, Maintenance, 01/27/23 11:30:00 EDT, [facility]/pharmacy #[id number], Parti... Start Date: 01/27/23 Status: Ordered [...] Pediatrics MD Member Role: PCP Address: Address: [address] [place] [address]- Name: Madi Sauer MD Position: [facility] TILE MECHANIC MD Member Role: Lifetime TILE MECHANIC Physician Address: Address: [address] [place] [address] Women's Health [place] [address]- Care Team Related Persons Name: MALENA KELSEY Address: [address] [place] [address] Name: MADDIE VENTURA Address: AMER[place] Address: [address] [place] [address] [place] Name: SUSHILA VENTURA Address: [address] [place] [address]
--- OUTSIDE RECORDS SUMMARY | 2023-04-27 13:38 | XMS_ITS | Continuity of Care Document ---
Author Name Unknown Organization [facility] ter Address [address] [place] [address]- Care Team Providers Care [employer]ductor Testing Group Leader Name Role Phone Kathya Tabor MD Primary Care Physician Encounter [facility] [place] Date(s): 11/18/22 - 11/19/[address] [address] Discharge Disposition: A-D/C Home Attending Physician: Jesica Jim MD Admitting Physician: Jesica Jim MD Referring Physician: Jesica Jim MD Allergies, Adverse Reactions, Alerts Substance Reaction [...] 1 Refills, Maintenance, 10/02/22 11:27:00 EDT, Tablet, [facility]/pharmacy #[id number], Partial fill upon patient request if... Start Date: 10/02/22 Status: Ordered famotidine 20 mg oral tablet 20 mg, 1, tablet, By Mouth, 2 times a day, # 60 tablet, Refills 1, Tot. Refills 1, Maintenance, 11/19/22 0:02:00 EDT, Route to [facility]acy Electronically, [id number], Partial fill upon patient request if the prescription is for a schedule II opio... Start Date: 11/19/22 Status: Ordered Multivitamins with Vitamin B Complex, Vitamin C, Minerals and L- Methylfolate oral capsule 1 capsule, By Mouth, Daily in AM, 0 Refills, Maintenance, 08/11/20 15:23:00 EST, Capsule, Partial fill upon patient request if the prescription is for a schedule II opioid drug. Start Date: 08/11/20 Status: Ordered Valtrex 1 gm oral tablet 1 tablet = 1 Gm, By Mouth, 2 times a day, # 14 tablet, 0 Refills, Acute 11/27/22 16:30:00 EDT, 11/17/22 16:30:00 EDT, Tablet, [facility] #[id number], Partial fill upon patient request if the prescriptionis for a schedule II opioid drug., 157.48, cm, 050... Start Date: 11/17/22 Stop Date: 11/27/22 Status: Ordered Valtrex 500 mg oral tablet 500 mg, 1, tablet, By Mouth, 2 times a day, # 60 tablet, Refills 2, Tot. Refills 2, Maintenance, 11/17/22 16:30:00 EDT, Route to Pharmacy Electronically, [facility][id number], Partial fill upon patientrequest if the prescription is for a schedule II op... Start Date: 11/17/22 Stop Date: 11/26/22 Status: Ordered Problem List Condition Confirmation Course Effective Dates Status Health St atus Informant Obese class II Confirmed Active Vital Signs Most recent to oldest [Reference Range]: 1 Weight 97.3 kg (11/18/22 8:49 PM) Pulse Rate [55-90 bpm] 102 bpm *H* (11/18/22 8:49 PM) Blood Pressure [90-138/55-84 mm Hg] 116/ 62mm Hg (11/18/22 8:49 PM) Respiratory Rate [16-30 br/min] 18 br/mi n (11/18/22 8:49 PM) Temperature [96.8-100.4 DegF] 98.1 DegF (11/18/22 8:49 PM) Blood pressure sites Arm, right (11/18/22 8:49 PM) Temperature Route Oral (11/18/22 8:49 PM) Dry Weight 97.3 kg (11/18/22 8:49 PM) Weight Obtained Via Standing scale (11/18/22 8:49 PM) Dry Weight Obtained Via Standing scale (11/18/22 8:49 PM) Social History Social History Type Response Smoking Status Never (less than 100 in lifetime) entered on: 06/19/22 Sex Note * Sharita Hodges RN: PERFORM Event Display: Discharge/Transfer Note Hospital Authored Date: [id number] Nursing Discharge Note Entered On: 11/19/2022 1:25 EDT Performed On: 11/19/2022 1:25 EDT by Sharita Hodges RN Nursing Discharge Note 2 Discharge Time : 11/19/2022 0:23 EDT Discharge Level of Care at Discharge : Home/Care Home/Foster Care Patient Left Unit Via : Ambulatory Patient Accompanied Off Unit with : Other: self ambulatory DC Instructions Provided & Signed by Pt : Yes Patient Understands D/C Instructions : Yes Verbalized Understanding of D/C Plan By : Patient Patient Instructions Discharge Signed : Yes Did Pt have Specialty Bed or Wound Vac : No Electronic Request: DC Instructions : No Electronic Request: Clinical Summary : No Electronic Request: Medical Record : No Sharita Hodges RN - 11/19/2022 1:25 EDT * Sharita Hodges RN: PERFORM Event Display: Patient Education/Instruction Authored Date: [id number] Inpatient Adult Discharge Instructions [address] [address] Name: CARLOS GIBBONS YANIRAROQUE : 2000 Visit: 11/18/2022 20:27:00 Current Date: 11/19/2022 00:14 Account: [id number] Inpatient Adult Discharge Instructions We would like [...] and their families. Surveys are administered by [employer] ?? If further treatment with your primary care physician or another doctor is recommended, it is important for you to keep the appointment. Call your primary care physician or return to the Emergency Department immediately if your condition worsens, fails to improve, or new symptoms develop. If you need to find a doctor, you can call [facility] [employer] for a referral at [phone] or toll free at [phone] or log in to [email or web address].. ?? You can view and manage your care through the patient portal or by using a health care yola of your choosing. [employer] is a website that allows you to securely view your medical information including your hospital discharge summary, office visit summaries, medications and follow-up visits. You can also request appointments, renew medications, and request access to your medical information using a health care yola of your choosing, or just ask a question. You can enroll at [email or web address] or register during your next office visit. You have been discharged from [facility], Patient Care Unit: [id number]. If you have any questions regarding these instructions after you leave, please call us and we will be happy to assist you. [facility] Your Care Team Attending Physician Diandra GRANT, Jesica Araujo Tests Performed Below is a partial list of the tests performed during your hospitalization. You may have had other tests and procedures not included in this list. Please discuss all test results with your provider. Primary Care Provider Kathya Tabor MD Advance Directive . Discharge Vitals Temperature: 98.1 DegF Weight: 97.3 kg Pulse Rate:??102 bpm??High ?? Respiratory Rate: 18 br/min ?? Systolic Blood Pressure: 116 mm Hg ?? Diastolic Blood Pressure: 62 mm Hg ?? Studies Pending All tests and labs ordered during this hospital stay have been completed unless listed below. Please discuss all pending results with your provider listed above in these instructions. ?? No incomplete studies found What to do next Instructions From Your Doctor Discharge Orders Scheduled Follow-Up Appointments November. 2022 10:30 AM EDT ?? With: Farnaz Sanchez CNM Where: [facility] BUS REPAIR SUPERVISOR Non [address] - 2022 9:00 AM EDT ?? With: Where: [facility] STALLION KEEPER [address] [place] [address] - 2022 10:10 AM EDT ?? With: Iram Fournier CNM Where: [facility] BUS REPAIR SUPERVISOR Non [address] - 2022 10:10 AM EDT ?? With: Amanda Gregory CNM Where: [facility] BUS REPAIR SUPERVISOR Non [address] - 2022 10:10 AM EDT ?? With: Bailee Encinas CNM Where: [facility] BUS REPAIR SUPERVISOR Non [address] - 2022 9:50 AM EDT ?? With: Where: [facility] BUS REPAIR SUPERVISOR Non [address] - 2022 9:50 AM EDT ?? With: Where: [facility] BUS REPAIR SUPERVISOR Non [address] - 2022 9:50 AM EDT ?? With: Where: [facility] BUS REPAIR SUPERVISOR Non [address] - 2022 9:50 AM EDT ?? With: Where: [facility] BUS REPAIR SUPERVISOR Non [address] - Discharge Medications CARLOS CATES :2000 Visit Date:11/18/2022 Medications: Please continue your medications until treatment is completed or stopped by your provider. Medications not listed below should be discontinued. Discuss any questions related to medications with your provider. What How Much When Why Instructions Next Dose New Famotidine (famotidine 20 mg oral tablet) 1 tab(s) Oral Twice a day Refills: 1 Pickup at [facility]/pharmacy #[id number] Unchanged Acetaminophen/ Butalbital/ Caffeine (acetaminophen/ butalbital/ caffeine 325 mg-50 mg-40 mg oral tablet) 2 tab(s) Oral Every 6 hours as needed for for headache not to exceed 6 tablets/ day not to exceed 4000 mg acetaminophen per day ?? Unchanged Multivitamin, ( Multivitamins with Vitamin B Complex, Vitamin C, Minerals and L-Methylfolate oral capsule) 1 capsule Oral Daily in the morning Unchanged ValACYclovir (Valtrex 1 gm oral tablet) 1 tab(s) Oral Twice a day Herpes simplex type 2 (HSV-2) infection affecting , antepartum Unchanged ValACYclovir (Valtrex 500 mg oral tablet) 1 tab(s) Oral Twice a day Herpes simplex type 2 (HSV-2) infection affecting , antepartum Duration: 3 Days [facility] Information [id number] [address] [place] [address] [phone] Test Results Below is a partial list of the most recent Laboratory test results done prior to this discharge. You may have had other tests and procedures not included in this list. Please discuss all test resultswith your provider. Allergies (NKA means No Known Allergies) amoxicillin??( severe hives,trouble breathing ) penicillin??( severe hives,trouble breathing ) Problems Active Problems??(2) Obese class II? Education Materials Below is the list of Educational Leaflet Providered with your Discharge Instructions. Kick Counts?? Herpes?? Genital Herpes?? Understanding Labor?? Valuables and Belongings I fully understand and agree that [facility] accepts no responsibility for all my [...] are strongly encouraged to quit. Please call [facility] [employer] Link at [phone] or [phone] ([phone]) or log in to [email or web address] for referrals to smoking cessation programs. ?? 785 Suicide & Crisis Lifeline is available 05/02 if you or someone you know needs to find a reason to keep living. By calling 355 you'll be connected to a skilled, trained counselor at a crisis center in your area. INPATIENT DISCHARGE INSTRUCTIONS SIGNATURE PAGE CARLOS CATES Location:[facility] Registration Date and Time:11/18/2022 20:27 EDT Primary Care Physician: Leander GRANT, Kathya Oneill, CARLOS BRYAN, have received the above patient education materials/instructions and have verbalized understanding. If ambulance or transport services are being used I further acknowledge being given a choice of service. ?? If you need to contact me, please call me at this number: . Patient/Plant Operations Vice President Name: Patient/Plant Operations Vice President Signature: Relationship to Patient: Witness Name/Signature: Date: * Sharita Hodges RN: PERFORM Event Display: Patient Education Leaflets Authored Date: [id number] Kick Counts ?? [address]8567 Kick Counts It???s normal to worry about your baby???s health. Generally, you will feel your baby start to movein your 2nd trimester at around 16 to 24 weeks. Getting to know the pattern of your baby's movements is one way to know what's normal for you and baby. This is called a kick count. Talk with your healthcare provider about kick counts and your specific situation. Always follow your provider's instructions. How to count kicks Here is just one way to do kick counts. Always follow your healthcare provider's instructions. Starting at 28 weeks, count your baby's movements daily. Time how long it takes you to feel 10 kicks, flutters, swishes, or rolls. Ideally, you want to feel at least 10 movements in 2 hours. You will likely feel 10 movements in less time than that. Here are tips for counting kicks: ??? Choose a time when the baby is active, such as after a meal.? Sit comfortably or lie on your side.? The first time the baby moves,??write down??the time.? Count each movement until the baby has moved?? 10??times. This can take from 20 minutes to 2??hours.? If you haven't felt 10 kicks by the end of the second hour, wait a few hours. Then try again. ??? Try to do it at the same time each day. ?? When to call your healthcare provider Follow your provider's instructions about when to call about your baby's movements. Don't hesitate to call if you have concerns. Call your healthcare provider?? right away??if: ??? You do a couple sets of kick counts during the day and your baby moves fewer than 10??times in??2??hours. ??? Your baby moves much less often than on the??days before. ??? You haven't felt your baby move all day. ?? Last Reviewed Date: 2022 ?? [id number] [employer]. All rights reserved. This information is not intended as a substitute for professional medical care. Always follow your healthcare professional's instructions. ?? * Sharita Hodges RN: PERFORM Event Display: Patient Education Leaflets Authored Date: [id number] Kick Counts ?? 97991 Kick Counts It???s normal to worry about your baby???s health. Generally, you will feel your baby start to movein your 2nd trimester at around 16 to 24 weeks. Getting to know the pattern of your baby's movements is one way to know what's normal for you and baby. This is called a kick count. Talk with your healthcare provider about kick counts and your specific situation. Always follow your provider's instructions. How to count kicks Here is just one way to do kick counts. Always follow your healthcare provider's instructions. Starting at 28 weeks, count your baby's movements daily. Time how long it takes you to feel 10 kicks, flutters, swishes, or rolls. Ideally, you want to feel at least 10 movements in 2 hours. You will likely feel 10 movements in less time than that. Here are tips for counting kicks: ??? Choose a time when the baby is active, such as after a meal.? Sit comfortably or lie on your side.? The first time the baby moves,??write down??the time.? Count each movement until the baby has moved?? 10??times. This can take from 20 minutes to 2??hours.? If you haven't felt 10 kicks by the end of the second hour, wait a few hours. Then try again. ??? Try to do it at the same time each day. ?? When to call your healthcare provider Follow your provider's instructions about when to call about your baby's movements. Don't hesitate to call if you have concerns. Call your healthcare provider?? right away??if: ??? You do a couple sets of kick counts during the day and your baby moves fewer than 10??times in??2??hours. ??? Your baby moves much less often than on the??days before. ??? You haven't felt your baby move all day. ?? Last Reviewed Date: 2022 ?? [id number] [employer]. All rights reserved. This information is not intended as a substitute for professional medical care. Always follow your healthcare professional's instructions. ?? * Sharita Hodges RN: PERFORM Event Display: Patient Education Leaflets Authored Date: [id number] Herpes ?? 59224 Herpes If you have herpes, you???re not alone. Millions of Americans have it. Herpes has no cure. But you can control it. And you can learn how to protect yourself and others from outbreaks. What is herpes? Herpes is a long-term (chronic) viral infection caused by the herpes simplex virus. There are 2 types of herpes simplex virus, type 1 (HSV-1) and type 2 (HSV-2). Infection with either type can cause sores and mild pain. You get herpes from contact with someone who carries the virus. If sores occur on the lips, you have oral herpes. These are most often caused by HSV-1. Sores that occur on the finger (herpetic maria antonia) are also often caused by HSV-1. If sores occur on the penis or in or around the vagina or rectum, you have genital herpes. This is most often caused by HSV-2. ?? Herpes outbreaks ??? The first outbreak of herpes sores is often the most severe. Then the white blood cells in the body???s immune system respond to the infection. This response helps control the herpes virus. It also often helps make future attacks less severe. ??? Some people have only 1 outbreak of sores. Some people have frequent outbreaks (every few weeks or months). Outbreaks of herpes sores often happen less often over time. ??? Herpes sores may appear without a cause. Outbreaks are more likely when the immune system is weak. Other viral infections (such as a cold) can cause outbreaks. Stress from a poor diet, extreme tiredness (fatigue), or emotional upset can lead to outbreaks of sores. Exposure to strong sunlight often causes herpes sores to reappear.? To help prevent outbreaks ??? To prevent oral herpes outbreaks, don't get overexposed to wind, sun,or extreme temperatures. Use sunscreen and lip balm on affected areas. ??? If you are having outbreaks often, ask your healthcare provider about medicines that can help prevent outbreaks. Antiviral medicines taken daily are very effective at reducing outbreaks. ?? How herpes spreads to others Herpes can be spread during an outbreak. But even if you don't have sores, you can still infect others. You can take steps to prevent this. Antiviral medicines are very effective at preventing herpesfrom spreading to others. Using condoms during sex can also help prevent the spread of the virus. ?? To protect yourself and others ??? If you have an oral sore, don't kiss or have oral-genital contact. ??? If you have a genital sore, don't have intercourse or oral-genital contact. ??? Scrub your hands for at least 20 seconds with soap and clean, running water after touching a sore. ??? Use a condom each time you have sex. You can pass the virus even when you don't have sores. If you???re not sure about the timing of certain kinds of physical contact, ask your healthcare provider. ??? Tell anynew partners that you have herpes. ??? A woman can spread herpes to her when giving , even without an active genital sore. If , tell your provider early in the that youhave herpes.??Follow-up with advised treatment throughout your . Contact your provider right away if you have any new symptoms. ??? Daily antiviral medicine (acyclovir, famciclovir, or valacyclovir), along with consistent condom use, may reduce your chances of spreading herpes to an uninfected partner. Ask your healthcare provider if one of these medicines would be helpful for you. ?? Resources [employer], www.[email or web address].org [phone] Centers for Disease Control and Prevention, www.cdc.gov/std 202-058-6303 ?? Last Reviewed Date: 2021 ?? [employer]. All rights reserved. This information is not intended as a substitute for professional medical care. Always follow your healthcare professional's instructions. ?? Patient Care team information Care Team Personnel Name: Kathya Tabor MD Position: [facility] General Pediatrics MD Member Role: PCP Address: Address: [address] [place] [address]- Name: Sharita Hodges RN Position: [facility] OB RN Member Role: OB RN Care Team Related Persons Name: MALENA KELSEY Address: home [address] [place], [place] Name: SUSHILA VENTURA Address: home [address] [place] [address]
--- OUTSIDE RECORDS SUMMARY | 2023-04-27 13:38 | XMS_ITS | Continuity of Care Document ---
Author Name Unknown Organization [facility] Channing neilBe [facility] Address [address], 4t [place] [address]- Care Team Providers Care [employer] Name Role Phone Leander GRANT, Kathya Oneill Primary Care Physician [phone] [id number] Date[facility]s): [facility]/04/23 - 03/03/23 [facility] Channingkeyla Badillo[facility] [address], 4th [place] [address]- Attending Physician: Nathalie Kearney MD Referring Physician: [...] Team Personnel Name: Kathya Tabor MD Position: [facility] General Pediatrics MD Member Role: PCP Address: Address: [address] [place] [address]- Name: Madi Sauer MD Position: [facility] FOUNDER CHAIRMAN AND CHIEF CREATIVE OFFICER MD Member Role: [employer] FOUNDER CHAIRMAN AND CHIEF CREATIVE OFFICER Physician Address: Address: [address] [place] [address] [facility] Air Control/Anti [place] [address]- Care Team Related Persons Name: MALENA KELSEY Address: [address] [place] [address] Name: MADDIE VENTURA Address: [employer] Address: [address] [place] [address] [place] Name: SUSHILA VENTURA Address: [address] [place] [address]
--- OUTSIDE RECORDS SUMMARY | 2023-04-27 13:38 | XMS_ITS | Continuity of Care Document ---
Author Name Unknown Organization [facility] Address [address] [facility]t [address] [place] [address]- Care Team Providers Care Video Game Producer Name Role Phone Kathya Tabor MD Primary Care Physician Encounter [facility] [place] Date(s): 05/09/22 - 06/08/22 [facility] [address] [facility], 4th Floor [address] [place] [id number] Allergies, Adverse Reactions, Alerts Substance Reaction Severity Status amoxicillin severe hives,trouble breathing Active penicillin severe hives,trouble breathing Active Medications cabergoline 0.5 mg oral tablet 0.5 tablet = 0.25 mg, By Mouth, Every Sunday and Sunday, # 13 tablet, 3 Refills, Maintenance, 05/10/22 15:59:00 EDT, [facility]/pharmacy #[id number], Partial fill upon patient [...] Pediatrics MD Member Role: PCP Address: Address: [address] [place] [address] Care Team Related Persons Name: SARAH KELSEYMY Address: home [address] [place] [id number] Name: SUSHILA VENTURA Address: [address] [address]
--- OUTSIDE RECORDS SUMMARY | 2023-04-27 13:38 | XMS_ITS | Continuity of Care Document ---
Author Name Unknown Organization [facility] Address [address] [place] [address]- Care Team Providers Care Medical Insurance Collector Name Role Phone Kathya Tabor MD Primary Care Physician [phone] Encounter [facility] Date(s): 01/09/23 - 02/08/23 [facility] [address] [place] [address] Attending Physician: Admtr, Ar8 Admitting Physician: Admtr, [...] 0 Refills, Maintenance, 02/02/23 15:46:00 EDT, Tablet, [facility]/pharmacy #[id number], Partial fill upon patient [...] each, 3 Refills, Maintenance, 01/27/23 11:30:00 EDT, [facility]/pharmacy #[id number], Parti... Start Date: 01/27/23 [...] Pediatrics MD Member Role: PCP Address: Address: [address] [place] [address]- Name: Madi Sauer MD Position: [facility] DECATING MACHINE OPERATOR MD Member Role: Lif[employer] DECATING MACHINE OPERATOR Physician Address: Address: [address] [place], [place] [address]s [facility] [place] [address]- Care Team Related Persons Name: MALENA KELSEY Address: home [address] [place] [address] Name: MADDIE VENTURA Address: [employer] Address: home [address] [place] [id number] [place] Name: SUSHILA VENTURA Address: home [address] [place], [place] [id number]
--- OUTSIDE RECORDS SUMMARY | 2023-04-27 13:38 | XMS_ITS | Continuity of Care Document ---
Author Name Unknown Organization [facility] Address Unknown Care Team Providers Care Web Database Developer Name Role Phone Kathya Tabor MD Primary Care Physician [phone] [id number] - 09/08/21 [facility] Attending Physician: Sofia Valverde MD Referring Physician: Marie Jacobsen CNM Allergies, Adverse Reactions, Alerts Substance Reaction [...] opioid drug. Start Date: 08/11/20 Status: Ordered Procedures Procedure Date Related Diagnosis Body Site Status Polypectomy 08/19/20 Completed Vital Signs Most recent to oldest [Reference Range]: 1 Height 157.48 cm (09/01/21 9:00 AM) Social History Social History Type Response Smoking Status Never (less than 100 in lifetime);Never entered on: 08/23/21 Sex
--- OUTSIDE RECORDS SUMMARY | 2023-04-27 13:38 | XMS_ITS | Continuity of Care Document ---
Author Name Unknown Organization [facility] neil[facility] Address [address], [address] [place] [address]- Care Team Providers Care Drill Bit Sharpener Name Role Phone Leander GRANT, Kathya Oneill Primary Care Physician [phone] [place] [facility] [place] [id number] Date(s): 01/04/23 - 01/11/23 [facility] [employer] [facility] [address] [place], [place] [address] Attending Physician: Inge [...] 1 Refills, Maintenance, 10/02/22 11:27:00 EDT, Tablet, [facility]/pharmacy #[id number], Partial fill upon patient request if... Start Date: 10/02/22 Status: Ordered famotidine 20 mg oral tablet See Instructions, TAKE 1 TABLET BY MOUTH TWICE A DAY, # 60 tablet, Refills 1, Maintenance, 12/12/2310:42:00 EDT, Instructions Replace Required Details, Route to Pharmacy Electronically, [facility] STORE [id number], 157.48, cm, 12/07/22 10:20:00 EDT, Height, 96.1... [...] tablet, 1 Refills, Maintenance, 01/04/23 15:06:00 EDT, [facility]/pharmacy #[id number], Partial fill [...] Radiology * Event Display: PDC Follow up Growth * Event Display: PDC Follow up Growth Authored Date: [id number] OBSTETRICS REPORT [id number] BMRN: [id number] : [birth year] (22 yrs)(F) Name: CARLOS CATES Visit Date: 01/04/2023 11:00 am PERFORMED BY: Performed By: Pippa Carmen RDMS Attending: Herb Alvarenga MD Referred By: KARISSA Fournier CNM Location: [address] INDICATIONS: Gestational diabetes O24.419 Placenta previa O44.00 VITAL SIGNS: Height: 5'1 EVALUATION: Num Of Fetuses: 1 Heart Rate(bpm): 136 Cardiac Activity: Present Presentation: Cephalic Placenta: Anterior Low-lying Amniotic Fluid SAROJ FV: Within normal limits SAROJ Sum(cm) Largest Pocket(cm) 19.9 5.7 RUQ(cm) RLQ(cm) LUQ(cm) LLQ(cm) 5.7 5.3 5 3.9 BIOMETRY: BPD: 88.9 mm G.Age: 36w 0d 54 % HC: 328.4 mm G.Age: 37w 2d 49 % AC: 331 mm G.Age: 37w 0d 82 % FL: 70.8 mm G.Age: 36w 2d 50 % CI: 73.92 % 70 - 86 FL/HC: 21.6 % 20.1 - 22.1 HC/AC: 0.99 0.93 - 1.11 FL/BPD: 79.6 % 71 - 87 FL/AC: 21.4 % 20 - 24 Est. FW: 3020 gm 6 lb 11 oz 69 % GESTATIONAL AGE: LMP: 36w 1d Date: 04/26/22 LAYLA: 01/31/23 / Today: 36w 5d LAYLA: 01/27/23 Best: 36w 1d Det. By: LMP (04/26/22) LAYLA: 01/31/23 CERVIX UTERUS ADNEXA: Cervix Length: 4 cm. Appears closed Comment Vaginal scanning was done. COMMENTS: The estimated weight is within normal limits. The anterior placenta is low-lying and 16 mm from the internal os. delivery is recommended when the placental edge is < 11 mm from the internal os. Conversely, if the distance is 11 mm or greater from the cervix a trial of labor can be attempted with increased surveillance for potential bleeding in labor. Delivery timing at 11 mm and greater is after 39 0/7 weeks in the absence of other indication for earlier delivery. visit to follow. Herb Alvarenga MD Electronically Signed Final Report 01/04/2023 11:48 am * Event Display: PDC Follow up Growth Authored Date: Please click on pdf link to open report Patient Care team information Care Team Personnel Name: Kathya Tabor MD Position: [facility] General Pediatrics MD Member Role: PCP Address: Address: [address] [place] [address]- Care Team Related Persons Name: MALENA KELSEY Address: home [address] [place] [address] Name: SUSHILA VENTURA Address: [address] [place] [address]
--- OUTSIDE RECORDS SUMMARY | 2023-04-27 13:38 | XMS_ITS | Continuity of Care Document ---
Author Name Unknown Organization [facility] Address [address] [address]- Care Team Providers Care Bioinformatics Analyst Name Role Phone Kathya Tabor MD Primary Care Physician Encounter [facility] Date(s): 09/05/22 - 10/05/22 [facility] [address] [place] [id number] Allergies, Adverse Reactions, Alerts Substance [...] Team Personnel Name: Kathya Tabor MD Position: [facility] General Pediatrics MD Member Role: PCP Address: Address: [address] [place] [address]- Care Team Related Persons Name: FABIODomingo MALENA Address: home [address] [place] [address] Name: SUSHILA VENTURA Address: [address] [place] [address]
--- OUTSIDE RECORDS SUMMARY | 2023-04-27 13:38 | XMS_ITS | Continuity of Care Document ---
Author Name Unknown Organization [facility] Address [address] [place] [address]- Care Team Providers Care Upstairs Maid Name Role Phone Kathya Tabor MD Primary Care Physician [place] [facility](s): 02/07/23 - 03/09/23 [facility] [address] [place] [id number] Allergies, Adverse Reactions, Alerts [...] MD Member Role: PCP Address: Address: [address] [place] [address]- Name: Cristiane GRANT, Madi Ayala Position: [facility] BOND TRADER MD Member Role: [employer]etime BOND TRADER Physician Address: Address: [address] [place] [address] Women's Health [place] [address]- Care Team Related Persons Name: MALENA KELSEY Address: [address] [place] [address] Name: MADDIE VENTURA Address: [employer] Address: [address] [place] [address] [place] Name: SUSHILA VENTURA Address: home [address] [place] [address]
--- OUTSIDE RECORDS SUMMARY | 2023-04-27 13:38 | XMS_ITS | Continuity of Care Document ---
Author Name Unknown Organization [facility] Address [address] [place] [address]- Care Team Providers Care Engineering Geologist Name Role Phone Kathya Tabor MD Primary Care Physician Encounter [facility] Date(s): 03/16/23 - 04/15/23 [facility] [address] [place] [id number] Allergies, Adverse Reactions, Alerts Substance [...] Replace Required Details, Route to Pharmacy Electronically, [facility] [id number], 158, cm, 03/13/23 9:25:00 EDT, Mee... Start Date: 03/16/23 Status: Ordered Xulane 150 mcg-35 mcg/24 hr transdermal film, extended release 1 patch, Topically, Every week, Wait until 6 weeks after delivery before starting this medication. Apply a new patch weekly for 3 weeks, then remove patch for 1 week., # 12 each, 3 Refills, Maintenance, 01/27/23 11:30:00 EDT, [facility]/pharmacy #[id number], Parti... Start Date: 01/27/23 Status: [...] Team Personnel Name: Kathya Tabor MD Position: [facility] General Pediatrics MD Member Role: PCP Address: Address: [address] [place] [address]- Name: Madi Sauer MD Position: [facility] GLOBAL COMPENSATION DIRECTOR MD Member Role: Lifetime GLOBAL COMPENSATION DIRECTOR Physician Address: Address: [address] [place] [address] Women's Health [place] [address]- Care Team Related Persons Name: MALENA KELSEY Address: [address] [place] [address] Name: MADDIE VENTURA Address: [employer] Address: home [address] [place] [address] [place] Name: SUSHILA VENTURA Address: home [address] [place] [address]
--- NOTE | 2023-04-27 14:14 | AM.OFFWIN_ITS ---
Intake Vital Signs 04/27/23 14:16 Height 5 ft 2 in Weight 197 lb BMI 36.0 BP 112/70 Blood Pressure Location Lt brachial Position Sitting Pulse 107 H Pulse Source Pulse Oximeter Temp 98.8 F Temp Source Temporal Artery Scan Pulse Oximetry (%) 97 Oxygen Delivery Method Room Air Intake Visit Reasons: EST/Sore throat/[phone] Intake Note: pt is here for c/o sore throat Patient Tobacco Use Status: Never used Tobacco Allergies amoxicillin [AMOXICILLIN] Allergy (Intermediate, Verified 04/27/23 14:17) RASH Penicillins Allergy (Intermediate, Verified 04/27/23 14:17) Hives penicillin Allergy (Unknown, Uncoded 06/30/22 09:40) Hives Do you need a note to return to daycare/school/sports/work: Yes HPI HPI Comments History of Present Illness Details This is a 23-year-old female who presents to the office today for sick visit. Patient complaining of viral URI symptoms including congestion, rhinorrhea, sore throat, sneezing, and a dry cough x3 days. Patient is concerned because she has a 3-month-old baby at home. She denies any fevers or chills. She denies any chest pain or shortness of breath. She denies any abdominal pain or nausea/vomiting / diarrhea. [facility] Medical History (System 06/27/21 @ 11:43 by Angeline Moreno) Migraines Uterine polyp Social History (System 06/27/21 @ 11:43 by Angeline Moreno) Alcohol intake: unknown Patient Tobacco Use Status: Never used Tobacco Review of Systems Const All systems reviewed & are unremarkable except as noted in HPI and below Reports no additional complaints Eyes Reports no additional complaints ENT Reports no additional complaints Card Reports no additional complaints Resp Reports no additional complaints GI Reports no additional complaints Reports no additional complaints Musc Reports no additional complaints Skin/Breast Reports system reviewed and no additional complaints, except as documented Neuro Reports no additional complaints Psych Reports no additional complaints Endo Reports no additional complaints Shane/Lymph Reports no additional complaints Aller/Immun Reports no additional complaints Physical Exam Vital Signs: Last Vital Signs Temp 98.8 F 04/27/23 14:16 Pulse 107 H 04/27/23 14:16 BP 112/70 04/27/23 14:16 Pulse Ox 97 04/27/23 14:16 Oxygen Delivery Method Room Air 04/27/23 14:16 BMI result Body Mass Index 36.0 Const Other: Vital signs reviewed. Constitutional: Non-toxic appearing. No acute distress. Well-developed and well-nourished. HEENT: Normocephalic and atraumatic. Tympanic membranes without erythema, edema, or bulging bilaterally. External auditory canals without erythema or edema bilaterally. Moist mucous membranes. No pharyngeal erythema or exudates. Skin: Warm and dry. No rashes or lesions noted. Neck: Full and painless range of motion. No cervical lymphadenopathy. Cardio: Regular rate and rhythm. No murmurs, gallops, or rubs. No lower extremity edema. No JVD. Pulmonary: No respiratory distress. No accessory muscle usage. Clear to auscultation bilaterally without wheezing, crackles, or rhonchi. Gastrointestinal: Soft, nontender, and nondistended in all 4 quadrants. Normoactive bowel sounds in all 4 quadrants. Genitourinary: No CVA tenderness. Musculoskeletal: Normal range of motion in joints throughout the body. No deformity or other signs of injury. Neuro: Alert and oriented x4. Cranial nerves 2-12 grossly intact. No focal deficits appreciated. Psych: Normal mood and affect. Results AMB Rapid Strep AMB Rapid Strep Negative Last Edit by GERARDO Dykes on 04/27/23 14:30 Results Reviewed Results Reviewed: Laboratory Last Values Strep Scn Rapid Clinic Negative 04/27/23 14:25 Assessment & Plan Assessment & Plan (1) Viral URI with cough: Code(s): J06.9 - Acute upper respiratory infection, unspecified Plan: Patient presenting with signs and symptoms most consistent with acute respiratory tract infection. COVID/flu/RSV sent. Recommended symptomatic management including rest, increased fluids, advil/tylenol for pain/fever, and over the counter throat lozenges/decongestants. Patient was reassured that this is a self-limiting illness and antibiotics are not necessary at this time. Patient advised to follow up here or go to the emergency room for worsening/persistent symptoms. Orders: Orders AMB Rapid Strep Screen Today Z13.9 - Encounter for screening, unspecified SARS-CoV2/FLU/RSV Today R09.89 - Other specified symptoms and signs involving the circulatory and respiratory systems Coding Level of Care Code Est Pt Level 3 (49713) Diagnoses Viral URI with cough J06.9
[2023-04-27 14:16] VITALS: BP 112/70; PULSE 107; TEMP 37.1; O2SAT 97; BMI 36.0
== END 2023-04-27 14:46 | disposition home or self-care (01) ==
PROVIDERS: PCP Internal Medicine; Visit Provider Physician Assistant Medical
DX: J06.9 Acute upper respiratory infection, unspecified (principal); J02.9 Acute pharyngitis, unspecified
CPT/HCPCS: 87880; 99213

== ENCOUNTER 2023-04-27 16:00 | Outpatient (REF) | payer OTHER, SELFPAY ==
[2023-04-27 17:49] LABS: Influenza A PCR NEGATIVE (Negative); Influenza B PCR NEGATIVE (Negative); Resp Syncy Virus RNA Qual PCR NEGATIVE (Negative); SARS COV2 PCR INHOUSE NEGATIVE (Negative)
== END 2023-04-27 16:01 | disposition home or self-care (01) ==
LOC: HO.LNP 16:00
PROVIDERS: Visit Provider Physician Assistant Medical
DX: R09.89 Other specified symptoms and signs involving the circulatory and respiratory systems (principal); Z11.52 Encounter for screening for COVID-19
CPT/HCPCS: 0241U